=== PATIENT | female | born 1995 | race Caucasian/White ===

== ENCOUNTER 2017-02-03 20:03 | Inpatient (IN) | payer MEDICAID ==
[~2017-02-03] VITALS: Ht 160 cm; Wt 82.6 kg
[~2017-02-03 20:03] MED LIST: AGM875T PO; AZIT-21 PO; BENZ100C18 PO; HYDR-3729 PO; IBUP-1773 PO; METH0.2T42 PO; METH4TAB PO; PREN1TAB19 PO; PRM5C60 TOP
[2017-02-03] MEDS ORDERED: LACTATED RINGERS 1,000 ML IV SCH (20:39)
[2017-02-03] MEDS ORDERED: MINERAL OIL CONCENTRATE 99.9% 15 ML UDC TOP PRN (20:45)
[2017-02-03] MEDS ORDERED: PREN-53 PO (20:56)
[2017-02-03 21:00] VITALS: BP 105/60
[2017-02-03 21:02] LABS: BASOPHILS % (AUTO) 0 % (0-10); EOSINOPHILS % (AUTO) 0 % (0-10); LYMPHOCYTES % (AUTO) 26 % (12-44); MEAN CORPUSCULAR HEMOGLOBIN 25 PG (25-34); MEAN CORPUSCULAR HGB CONC 32 G/DL (32-36); MEAN CORPUSCULAR VOLUME 79 FL (80-99); MEAN PLATELET VOLUME 12.1 FL (7.4-10.4); MONOCYTES # (AUTO) 0.7 X 10^3 (0.0-1.0); MONOCYTES % (AUTO) 10 % (0-12); NEUTROPHILS # (AUTO) 4.7 X 10^3 (1.8-7.8); NEUTROPHILS % (AUTO) 64 % (42-75); PLATELET COUNT 152 10^3/uL (130-400); RED BLOOD COUNT 3.45 10^6/uL (4.35-5.85); RED CELL DISTRIBUTION WIDTH 14.6 % (10.0-14.5); WHITE BLOOD COUNT 7.5 10^3/uL (4.3-11.0)
[2017-02-03] MEDS ORDERED: MISOPROSTOL 100 MCG (CYTOTEC) TAB ONE (21:25)
[2017-02-03] MEDS: MISOPROSTOL 100 MCG (CYTOTEC) TAB PV SCH (21:30)
[2017-02-03] MEDS ORDERED: CATHETER FLUSH 10 ML SYR IV SCH (22:00)
[2017-02-03 23:00] VITALS: BP 91/53
[2017-02-04] VITALS (39 sets, daily range): BP systolic 83–121; BP diastolic 49–67
[2017-02-04] MEDS ORDERED: MISOPROSTOL 100 MCG (CYTOTEC) TAB ONE (00:30)
[2017-02-04] MEDS: MISOPROSTOL 100 MCG (CYTOTEC) TAB PV SCH (01:43)
[2017-02-04] MEDS ORDERED: D5 LR IV SOLUTION 1,000 ML IV ONE (03:49)
[2017-02-04] MEDS: D5 LR IV SOLUTION 1,000 ML IV SCH ×3 (03:54→11:15)
[2017-02-04] MEDS ORDERED: fentaNYL INJECTION 100 MCG/2 ML AMP IVP PRN (05:30)
[2017-02-04] MEDS ORDERED: OXYTOCIN/NORMAL SALINE 500 ML IV SCH ×2 (07:48→13:37)
[2017-02-04] MEDS ORDERED: BUPIVACAINE 0.25% 30 ML (SENSORCAINE) VIAL ONE (08:09)
[2017-02-04] MEDS ORDERED: SUFENTA 0.6MCG/ML BUPIVA 0.125 100 ML ONE (08:11)
[2017-02-04] MEDS ORDERED: LACTATED RINGERS 1,000 ML IV ONE (08:24)
[2017-02-04] MEDS ORDERED: BUPIVACAINE 0.25% 30 ML (SENSORCAINE) VIAL INJ ONE (08:30)
[2017-02-04] MEDS ORDERED: ONDANSETRON 4 MG/2 ML (SDV) Z0FRAN IV PRN (08:30)
[2017-02-04] MEDS ORDERED: EPIDURAL (SUFENTA 0.6MCG/ML BUPIVA 0.125%) 100 ML BAG EPI SCH (08:30)
[2017-02-04] MEDS ORDERED: NALOXONE 0.4 MG/ML 1 ML (NARCAN) VIAL IV PRN (08:30)
--- NOTE | 2017-02-04 11:51 | History & Physical-OB ---
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), anemia on iron, h/o 10 wk SAB with negative APS testing History of Labs A+ Antibody neg RI Hep B neg Hep C neg HIV neg RPR NR GC/CT neg/neg GBS Neg Fragile X pos on carrier screening panel; referred to [facility] with neg amnio (XY fetus) Allergies and Home Medications Allergies Coded Allergies: No Known Drug Allergies (Unverified , 07/24/09) Home Medications [id number]/Iron Fumarate/FA/Dss 1 Each Tablet, 1 EACH PO DAILY, (Reported) OB - History Hx of Present Care: Yes Ultrasounds: Normal mid trimester US Obstetrical Complications: Other (see above) Medical Complications: Other (see above) Information Induced Hypertension: No Maternal Gestational Diabetes: No Hemorrhage: No Obstetrical History Hx : 3 Hx Para: 1 Number of Living Children: 1 Hx Termination: No Hx Total # of Abortions (Spona: 1 Hx Multiple Gestation: No Hx Stillbirth: No Hx Complication: No Hx Induced Hypertens: No Hx Maternal Gestational Diabet: No Delivery History Hx Dystocia: No Hx Large For Gestational Age I: Yes (1tx15up last , pushed x 2 hours) Hx Small for Gestational Age I: No Hx Section: No Hx Vaginal Delivery Post C-Sec: No Hx Blood Disorders: No Adverse Rxn to Tranfusion: No Patient Past Medical History see above Social History/Family History HIV/AIDS: No Recent Infectious Disease Expo: No Sexually Transmitted Disease: No Alcohol Use: Denies Use Recreational Drug Use: No Immunizations Hepatitis A: Yes Hepatitis B: Yes Tetanus Booster (TDap): Less than 5yrs Rubella: immune RPR/VDRL: Negative GBS Status: Negative HBsAG: Negative OB - Admission Exam Physical Exam Vitals: Vital Signs 02/04/17 02/04/17 02/04/17 07:45 09:55 10:25 Temp 98.4 Pulse 74 Resp 18 B/P (MAP) 102/53 Pulse Ox 100 O2 Flow Rate 15.00 HEENT: NCAT Heart: Rhythm Normal Lungs: Clear Abdomen: Gravid Extremities: Normal Reflexes: Normal Cervical Dilatation: 4cm Effacement: 75% Station: -2 Membranes: Ruptured Amniotic Fluid: Clear Heart Rate: 140's Accelerations: Accelerations Present Decelerations: No Decelerations Short Term Variability: Present Sound Technician Supervisor Variability: Average (6-25) Contractions on Admission: < 5 Minutes Apart Oro Scoring Tool (Modified) Dilation (cm): 3-4cm (2) Effacement (%): 51-79% (2) Descent/Station: -2 (1) Cervix Consistency: Medium(1) Cervix Position: Middle/Mid-Position (1) Add 1 point for: Each previous vaginal delivery (1) Oro Score: 8 Labs Laboratory Tests Test 02/03/17 20:54 Range/Units White Blood Count 7.5 4.3-11.0 10^3/uL Red Blood Count 3.45 L 4.35-5.85 10^6/uL Hemoglobin 8.7 L 11.5-16.0 G/DL Hematocrit 27 L 35-52 % Mean Corpuscular Volume 79 L 80-99 FL Mean Corpuscular Hemoglobin 25 25-34 PG Mean Corpuscular Hemoglobin Concent 32 32-36 G/DL Red Cell Distribution Width 14.6 H 10.0-14.5 % Platelet Count 152 130-400 10^3/uL Mean Platelet Volume 12.1 H 7.4-10.4 FL Neutrophils (%) (Auto) 64 42-75 % Lymphocytes (%) (Auto) 26 12-44 % Monocytes (%) (Auto) 10 0-12 % Eosinophils (%) (Auto) 0 0-10 % Basophils (%) (Auto) 0 0-10 % Neutrophils # (Auto) 4.7 1.8-7.8 X 10^3 Lymphocytes # (Auto) 2.0 1.0-4.0 X 10^3 Monocytes # (Auto) 0.7 0.0-1.0 X 10^3 Eosinophils # (Auto) 0.0 0.0-0.3 10^3/uL Basophils # (Auto) 0.0 0.0-0.1 10^3/uL OB - Assessment/Plan/Diagnosis Assessment Assessment: induction of labor Plan Other Plan 21 y/o @ 39w2d here for elective IOL, GBS neg Fragile X carrier, baby neg for fragile X per amnio with MFM Rh+ RI S/p cytotec x 2 doses AROM/pit for IOL [place] MD February 04, 2017 11:51
[2017-02-04] MEDS ORDERED: HYDROcodone/APAP 5 MG/325 MG (LORTAB) TAB PO PRN (13:45)
[2017-02-04] MEDS ORDERED: MEASLES,MUMPS,RUBELLA 1 EA INJ SQ ONE (13:45)
[2017-02-04] MEDS ORDERED: TETANUS,DIPTH,PERTUSS P/F (BOOSTRIX) 0.5 ML VIAL IM ONE (13:45)
[2017-02-04] MEDS ORDERED: WITCH HAZEL(TUCKS) 40 EA JAR TOP PRN (13:45)
[2017-02-04] MEDS ORDERED: BENZOCAINE/MENTHOL (DERMOPLAST) 56 ML CAN TP PRN (13:45)
[2017-02-04] MEDS ORDERED: CATHETER FLUSH 10 ML SYR IV SCH (14:00)
[2017-02-04] MEDS: IBUPROFEN 600 MG (MOTRIN) TAB PO SCH ×2 (14:52→21:26)
--- NOTE | 2017-02-04 15:09 | OB Labor & Delivery Record ---
Vag Delivery Note Vag Delivery Note Date of Delivery: 02/04/17 Preoperative Diagnosis: Nica Goodman is a 21 y/o @ 39w2d with elective IOL, GBS neg, fragile X carrier (fetus negative for fragile X on amnio) Postoperative Diagnosis: Same Surgeon: Malachi Juárez MD Anesthesia: Epidural Delivery Type: Spontaneous vaginal delivery Findings: Viable male , apgars 9/9, weight 9lb2oz Lacerations: none Intact placenta with 3 vessel cord. No nuchal cord, body cord or shoulder dystocia Estimated Blood Loss: 300 ml Complications: None Condition: Stable Description of Procedure: The patient is a 21 y/o who presented @ 39w2d for elective IOL. She was admitted and informed consent was obtained. Her labor course was remarkable for cytotec (2 doses vaginally), AROM with clear fluid, pitocin for induction, and epidural for analgesia. FSE was placed by RN for accurate FHT monitoring. She progressed to complete dilatation and began to push. She was then set up for delivery. The 's head was delivered atraumatically in the occiput anterior position. The shoulders and remainder of the 's body were then delivered without difficulty. Upon delivery, the head was held below the level of the perineum and the mouth and nares were bulb suctioned. The cord was doubly clamped and cut and the infant was handed off to the pediatric staff. An intact placenta with 3-vessel cord delivered via Francesca and there was found to be minimal bleeding. Vigorous fundal massage was performed and the fundus was found to be firm. IV oxytocin was given. Examination of the vagina and perineum revealed a no lacerations. Sponge and instrument counts were correct. Mom and baby were both in stable condition in the labor suite. Vitals - Labs Vital Signs - I&O Vital Signs Date Time Temp Pulse Resp B/P (MAP) Pulse Ox O2 Delivery O2 Flow Rate FiO2 02/04/17 10:25 74 18 102/53 15.00 02/04/17 10:10 83 18 109/54 15.00 02/04/17 10:07 15.00 02/04/17 09:55 99 18 110/55 100 02/04/17 09:40 93 18 93/51 100 02/04/17 09:25 90 18 99/53 100 02/04/17 09:24 86 18 104/58 100 02/04/17 09:21 93 18 83/49 100 02/04/17 09:10 80 18 87/53 100 02/04/17 08:55 82 18 94/51 100 02/04/17 08:40 110 18 105/60 100 02/04/17 08:35 91 18 107/58 100 02/04/17 08:30 103 18 97/54 100 02/04/17 08:25 98 18 110/56 100 02/04/17 08:20 108 18 115/67 100 02/04/17 08:15 88 18 107/65 96 02/04/17 08:10 85 18 94/50 02/04/17 07:45 98.4 02/04/17 07:10 96 18 90/51 02/04/17 07:00 85 18 98/55 02/04/17 06:00 99.0 93 18 105/56 02/04/17 05:00 81 18 104/63 02/04/17 04:00 86 18 97/55 02/04/17 03:00 76 18 89/53 02/04/17 01:00 97 18 110/59 02/04/17 00:00 98 18 92/53 02/03/17 23:00 92 18 91/53 02/03/17 21:00 98.6 121 18 105/60 Labs Laboratory Tests 02/03/17 20:54: White Blood Count 7.5, Red Blood Count 3.45L, Hemoglobin 8.7L, Hematocrit 27L, Mean Corpuscular Volume 79L, Mean Corpuscular Hemoglobin 25, Mean Corpuscular Hemoglobin Concent 32, Red Cell Distribution Width 14.6H, Platelet Count 152, Mean Platelet Volume 12.1H, Neutrophils (%) (Auto) 64, Lymphocytes (%) (Auto) 26 , Monocytes (%) (Auto) 10, Eosinophils (%) (Auto) 0, Basophils (%) (Auto) 0, Neutrophils # (Auto) 4.7, Lymphocytes # (Auto) 2.0, Monocytes # (Auto) 0.7, Eosinophils # (Auto) 0.0, Basophils # (Auto) 0.0 02/04/17 00:00: MALACHI JUÁREZ MD February 04, 2017 15:09
[2017-02-04] MEDS ORDERED: DOCU100C37 PO (16:34)
[2017-02-04] MEDS ORDERED: HYDR-3812 PO (16:34)
[2017-02-04] MEDS ORDERED: IBUP-1773 PO (16:34)
[2017-02-04] MEDS ORDERED: FERR-74 PO (16:34)
--- NOTE | 2017-02-04 17:38 | Discharge Inst-Women's Service ---
Discharge Inst-Women's Serv Depart Medication/Instructions New, Converted or Re-Newed RX: RX on Chart (and transmitted to pharmacy) Final Diagnosis TIUP, elective IOL, Consults/Follow Up Additional Follow Up: Yes Orders/Referrals [address] Juárez Activity Activity: Activity as Tolerated Driving Instructions: You May Drive (unless taking narcotic pain medications) NO SMOKING: NO SMOKING Nothing Inside Vagina: No Douching, No [place], No Tampons Diet Discharge Diet: No Restrictions Symptoms to Report to : Bleeding Excessive, Pain Increased, Fever Over 101 Degrees F, Pain/Pressure in Chest, Vaginal Bleeding Increase, Dizziness/Fainting , Nausea/Vomiting, Shortness of Breath For Any Problems or Questions: Contact Your Physician, Go to Emergency Room MALACHI JUÁREZ MD February 04, 2017 17:38
[2017-02-04] MEDS: DOCUSATE SODIUM 100 MG (COLACE) CAP PO SCH (21:26)
[2017-02-05 00:50] VITALS: BP 98/60
[2017-02-05 03:40] VITALS: BP 102/67
[2017-02-05] MEDS: IBUPROFEN 600 MG (MOTRIN) TAB PO SCH ×5 (03:40→16:58)
[2017-02-05 05:41] LABS: BASOPHILS % (AUTO) 0 % (0-10); EOSINOPHILS # (AUTO) 0.1 10^3/uL (0.0-0.3); EOSINOPHILS % (AUTO) 1 % (0-10); LYMPHOCYTES # (AUTO) 2.3 X 10^3 (1.0-4.0); LYMPHOCYTES % (AUTO) 27 % (12-44); MEAN CORPUSCULAR HEMOGLOBIN 25 PG (25-34); MEAN CORPUSCULAR HGB CONC 31 G/DL (32-36); MEAN CORPUSCULAR VOLUME 80 FL (80-99); MEAN PLATELET VOLUME 12.3 FL (7.4-10.4); MONOCYTES # (AUTO) 0.6 X 10^3 (0.0-1.0); MONOCYTES % (AUTO) 7 % (0-12); NEUTROPHILS # (AUTO) 5.6 X 10^3 (1.8-7.8); NEUTROPHILS % (AUTO) 65 % (42-75); PLATELET COUNT 139 10^3/uL (130-400); RED BLOOD COUNT 3.59 10^6/uL (4.35-5.85); RED CELL DISTRIBUTION WIDTH 14.8 % (10.0-14.5); WHITE BLOOD COUNT 8.7 10^3/uL (4.3-11.0)
[2017-02-05] MEDS ORDERED: PRENATAL VITAMIN 1 EA TAB PO SCH (07:00)
[2017-02-05] MEDS ORDERED: FERROUS SULF 325 MG (IRON) TAB PO SCH (08:00)
[2017-02-05] MEDS: DOCUSATE SODIUM 100 MG (COLACE) CAP PO SCH (08:37)
--- NOTE | 2017-02-05 08:37 | Postpartum Progress Note ---
Note Note Day # 1 s/p Subjective: Patient is without complaints. Ambulating, voiding. Tolerating a regular diet without nausea or vomiting. Normal lochia. Pain is well controlled with oral pain medications. [] feeding. [] Objective: Laboratory Tests Test 02/05/17 05:25 Range/Units White Blood Count 8.7 4.3-11.0 10^3/uL Red Blood Count 3.59 L 4.35-5.85 10^6/uL Hemoglobin 8.8 L 11.5-16.0 G/DL Hematocrit 29 L 35-52 % Mean Corpuscular Volume 80 80-99 FL Mean Corpuscular Hemoglobin 25 25-34 PG Mean Corpuscular Hemoglobin Concent 31 L 32-36 G/DL Red Cell Distribution Width 14.8 H 10.0-14.5 % Platelet Count 139 130-400 10^3/uL Mean Platelet Volume 12.3 H 7.4-10.4 FL Neutrophils (%) (Auto) 65 42-75 % Lymphocytes (%) (Auto) 27 12-44 % Monocytes (%) (Auto) 7 0-12 % Eosinophils (%) (Auto) 1 0-10 % Basophils (%) (Auto) 0 0-10 % Neutrophils # (Auto) 5.6 1.8-7.8 X 10^3 Lymphocytes # (Auto) 2.3 1.0-4.0 X 10^3 Monocytes # (Auto) 0.6 0.0-1.0 X 10^3 Eosinophils # (Auto) 0.1 0.0-0.3 10^3/uL Basophils # (Auto) 0.0 0.0-0.1 10^3/uL Vital Sign - Last 24 Hours 02/04/17 02/04/17 02/04/17 02/04/17 08:40 08:55 09:10 09:21 Pulse 110 82 80 93 Resp 18 B/P (MAP) 105/60 94/51 87/53 83/49 Pulse Ox 100 100 100 100 02/04/17 02/04/17 02/04/17 02/04/17 09:24 09:25 09:40 09:55 Pulse 86 90 93 99 Resp 18 18 B/P (MAP) 104/58 99/53 93/51 110/55 Pulse Ox 100 100 100 100 5/17/17 5/17/17 5/17/17 5//17 10:07 10:10 10:25 10:40 Pulse 83 74 129 Resp 18 18 18 B/P (MAP) 109/54 102/53 91/57 O2 Flow Rate 15.00 15.00 15.00 15.00 17/17 5//17 5/17/17 5//17 10:55 11:10 11:25 11:39 Temp 99.0 Pulse 94 93 107 Resp 18 18 18 B/P (MAP) 107/55 101/56 100/57 O2 Flow Rate 15.00 15.00 17/17 5/17 5/17 5 12:15 12:25 12:40 13:35 Temp 98.2 Pulse 108 101 87 89 Resp 18 18 18 18 B/P (MAP) 97/53 101/65 97/60 118/62 02/04/17 02/04/17 02/04/17 02/04/17 13:55 14:05 14:20 14:35 Temp 98.8 Pulse 96 91 96 96 Resp 18 18 18 18 B/P (MAP) 106/62 121/55 98/64 97/67 17/17 02/04/17 //17 5//17 14:45 15:00 16:30 21:26 Temp 97.9 98.6 98.2 Pulse 101 83 87 Resp 18 18 18 B/P (MAP) 87/64 109/62 94/58 Pulse Ox 98 98 02/05/17 5/17 00:50 03:40 Temp 98.0 98.0 Pulse 80 81 Resp 18 18 B/P (MAP) 98/60 102/67 Pulse Ox 98 98 Intake and Output 02/04/17 5//17 5//17 15:00 23:00 07:00 Intake Total 2125 ml Balance 2125 ml Physical Exam: General - Alert and oriented, no apparent distress Abdomen - Soft, appropriately tender to palpation, non-distended, fundus firm at umbilicus Extremities - no edema, negative Adam's bilaterally [] Assessment: 1. post- day # 1, status post spontaneous vaginal delivery. Recovering well, hemodynamically stable 2. Acute blood loss anemia - hgb 8.8, iron replaced Plan: Routine care. Encourage breast feeding. Encourage ambulation. Ferrous sulfate supplementation. Plan for discharge today if baby ready to go. Vitals - Labs Vital Signs - I&O Vital Signs Date Time Temp Pulse Resp B/P (MAP) Pulse Ox O2 Delivery O2 Flow Rate FiO2 02/05/17 03:40 98.0 81 18 102/67 98 02/05/17 00:50 98.0 80 18 98/60 98 02/04/17 21:26 98.2 87 18 94/58 98 02/04/17 16:30 98.6 83 18 109/62 98 02/04/17 15:00 97.9 02/04/17 14:45 101 18 87/64 02/04/17 14:35 96 18 97/67 02/04/17 14:20 96 18 98/64 02/04/17 14:05 91 18 121/55 02/04/17 13:55 98.8 96 18 106/62 02/04/17 13:35 89 18 118/62 02/04/17 12:40 87 18 97/60 02/04/17 12:25 101 18 101/65 02/04/17 12:15 98.2 108 18 97/53 02/04/17 11:39 99.0 02/04/17 11:25 107 18 100/57 02/04/17 11:10 93 18 101/56 15.00 02/04/17 10:55 94 18 107/55 15.00 02/04/17 10:40 129 18 91/57 15.00 02/04/17 10:25 74 18 102/53 15.00 02/04/17 10:10 83 18 109/54 15.00 02/04/17 10:07 15.00 02/04/17 09:55 99 18 110/55 100 02/04/17 09:40 93 18 93/51 100 02/04/17 09:25 90 18 99/53 100 02/04/17 09:24 86 18 104/58 100 02/04/17 09:21 93 18 83/49 100 02/04/17 09:10 80 18 87/53 100 02/04/17 08:55 82 18 94/51 100 02/04/17 08:40 110 18 105/60 100 I & O 02/05/17 07:00 Intake Total 2125 ml Balance 2125 ml Labs Laboratory Tests 02/05/17 05:25: White Blood Count 8.7, Red Blood Count 3.59L, Hemoglobin 8.8L, Hematocrit 29L, Mean Corpuscular Volume 80, Mean Corpuscular Hemoglobin 25, Mean Corpuscular Hemoglobin Concent 31L, Red Cell Distribution Width 14.8H, Platelet Count 139, Mean Platelet Volume 12.3H, Neutrophils (%) (Auto) 65, Lymphocytes (%) (Auto) 27 , Monocytes (%) (Auto) 7, Eosinophils (%) (Auto) 1, Basophils (%) (Auto) 0, Neutrophils # (Auto) 5.6, Lymphocytes # (Auto) 2.3, Monocytes # (Auto) 0.6, Eosinophils # (Auto) 0.1, Basophils # (Auto) 0.0 MINE SHEN DO February 05, 2017 08:37
[2017-02-05 08:38] VITALS: BP 101/66
--- NOTE | 2017-02-05 10:37 | Anesthesia-Regional Post-Op ---
Regional Patient Condition Mental Status: Alert, Oriented x3 Circulation: Same as Pre-Op Headache: Absent Sensation: Full Recovery Motor Block: Absent Post Op Complications Complications None Follow Up Care/Instructions Patient Instructions None needed. Anesthesia/Patient Condition Patient is doing well, no complaints, stable vital signs, no apparent adverse anesthesia problems. No complications reported per nursing. [place] [facility] [place] JESSIE RANKIN CRNA February 05, 2017 10:37
[2017-02-05 14:30] VITALS: BP 99/62
== END 2017-02-05 17:35 | disposition home or self-care (01) | DRG 775 ==
LOC: LDRP 20:03
PROVIDERS: ADMIT Obstetrics & Gynecology; ATTEND Obstetrics & Gynecology
PROC: 10E0XZZ Delivery of Products of Conception, External Approach (ICD-10-PCS; principal; 2017-02-04)
PROC: 3E0P7GC Introduction of Other Therapeutic Substance into Female Reproductive, Via Natural or Artificial Opening (ICD-10-PCS; 2017-02-04)
PROC: 3E033VJ Introduction of Other Hormone into Peripheral Vein, Percutaneous Approach (ICD-10-PCS; 2017-02-04)
DX: O35.1XX0 Maternal care for (suspected) chromosomal abnormality in fetus, not applicable or unspecified (principal); Q99.2 Fragile X chromosome; Z3A.39 39 weeks gestation of pregnancy; Z37.0 Single live birth; D62 Acute posthemorrhagic anemia; O99.02 Anemia complicating childbirth
CPT/HCPCS: 36415; 85025; 86850; 86900; 86901

== ENCOUNTER 2017-09-03 18:19 | Emergency (ER) | payer MEDICAID ==
[~2017-09-03] VITALS: Ht 165.1 cm; Wt 61.2 kg
[~2017-09-03 18:19] MED LIST changes: +DOCU100C37 PO; +FERR-74 PO; +HYDR-3812 PO; +PREN-53 PO
--- OUTSIDE RECORDS SUMMARY | 2017-09-03 18:27 | XMS REPORT | Continuity of Care Document ---
Author Author [facility] Address Unknown Phone Unavailable Allergies Active Description Code Type Severity Reaction Onset Reported/Identified Relationship to Patient Clinical Status Yes No Known Drug Allergies [id number] Drug Allergy Mild N/A 07/24/2009 Medications There is no data. Problems Date Dx Coded Attending Type Code Diagnosis Diagnosed By 12/19/2010 Ot 133.0 12/19/2010 Ot 782.1 10/19/2012 Ot 461.9 ACUTE SINUSITIS NOS 10/19/2012 Ot 478.19 OTHER DISEASE OF NASAL CAVITY AND SINUSE 02/22/2013 JESUS COX DO Ot 462 ACUTE PHARYNGITIS 04/20/2013 JOSE GUADALUPE KITCHEN DO K 034.0 STREP THROAT 04/20/2013 ALESSANDRA KITCHEN DOA K 784.1 THROAT PAIN 04/20/2013 NOEMI JUNIOR, ERROL T 034.0 STREP THROAT 04/20/2013 NOEMI JUNIOR ERROL T 784.1 THROAT PAIN 04/20/2013 FANNY BUILDING AND CONSTRUCTION MANAGER, MAL A 034.0 STREP THROAT 04/20/2013 FANNY BUILDING AND CONSTRUCTION MANAGER, MAL A 784.1 THROAT PAIN 04/20/2013 KITCHEN ALESSANDRA ATKINSA K 034.0 STREP THROAT 04/20/2013 KITCHEN ALESSANDRA ATKINSA K 784.1 THROAT PAIN 04/20/2013 FANNY BUILDING AND CONSTRUCTION MANAGER, MAL A 034.0 STREP THROAT 04/20/2013 FANNY BUILDING AND CONSTRUCTION MANAGER, MAL A 784.1 THROAT PAIN 04/20/2013 FANNY BUILDING AND CONSTRUCTION MANAGER, MAL A 034.0 STREP THROAT 04/20/2013 FANNY BUILDING AND CONSTRUCTION MANAGER, MAL A 784.1 THROAT PAIN 04/20/2013 VALENTINA REYNOSO MD 034.0 STREP THROAT 04/20/2013 VALENTINA REYNOOS MD 784.1 THROAT PAIN 04/20/2013 VALENTINA REYNOSO MD 034.0 STREP THROAT 04/20/2013 EDGARDO MD, VALENTINA N 784.1 THROAT PAIN 04/20/2013 FANNY BUILDING AND CONSTRUCTION MANAGER, MAL A 034.0 STREP THROAT 04/20/2013 FANNY BUILDING AND CONSTRUCTION MANAGER, MAL A 784.1 THROAT PAIN 04/20/2013 FANNY BUILDING AND CONSTRUCTION MANAGER, MAL A 034.0 STREP THROAT 04/20/2013 FANNY BUILDING AND CONSTRUCTION MANAGER, MAL A 784.1 THROAT PAIN 04/20/2013 VALENTINA REYNOSO MD N 034.0 STREP THROAT 04/20/2013 VALENTINA REYNOSO MD N 784.1 THROAT PAIN 04/20/2013 VALENTINA REYNOSO MD N 034.0 STREP THROAT 04/20/2013 VALENTINA REYNOSO MD N 784.1 THROAT PAIN 04/20/2013 VALENTINA REYNOSO MD N 034.0 STREP THROAT 04/20/2013 VALENTINA REYNOSO MD N 784.1 THROAT PAIN 04/20/2013 VALENTINA REYNOSO MD N 034.0 STREP THROAT 04/20/2013 VALENTINA REYNOSO MD N 784.1 THROAT PAIN 04/20/2013 VALENTINA REYNOSO MD N 034.0 STREP THROAT 04/20/2013 VALENTINA REYNOSO MD N 784.1 THROAT PAIN 04/20/2013 VALENTINA REYNOSO MD N 034.0 STREP THROAT 04/20/2013 VALENTINA REYNOSO MD N 784.1 THROAT PAIN 04/20/2013 VALENTINA REYNOSO MD N 034.0 STREP THROAT 04/20/2013 VALENTINA REYNOSO MD N 784.1 THROAT PAIN 04/20/2013 VALENTINA REYNOSO MD N 034.0 STREP THROAT 04/20/2013 VALENTINA REYNOSO MD N 784.1 THROAT PAIN 04/20/2013 VALENTINA REYNOSO MD N 034.0 STREP THROAT 04/20/2013 VALENTINA REYNOSO MD N 784.1 THROAT PAIN 04/20/2013 VALENTINA REYNOSO MD N 034.0 STREP THROAT 04/20/2013 VALENTINA REYNOSO MD N 784.1 THROAT PAIN 04/20/2013 FANNY BUILDING AND CONSTRUCTION MANAGER, MAL A 034.0 STREP THROAT 04/20/2013 FANNY BUILDING AND CONSTRUCTION MANAGER, MAL A 784.1 THROAT PAIN 04/20/2013 KITCHEN DO, JOSE GUADALUPE K 034.0 STREP THROAT 04/20/2013 ALESSANDRA KITCHEN DOA K 784.1 THROAT PAIN 06/29/2013 ALESSANDRA KITCHEN DOA K 461.9 SINUSITIS ACUTE 06/29/2013 FIDELINA ATKINS, JOSE GUADALUPE K 462 PHARYNGITIS ACUTE 06/29/2013 ALESSANDRA KITCHEN DOA K 626.0 ABSENCE OF MENSTRUATION 06/29/2013 NOEMI BUILDING AND CONSTRUCTION MANAGERERROL Ochoa T 461.9 SINUSITIS ACUTE 06/29/2013 NOEMI BUILDING AND CONSTRUCTION MANAGER, ERROL T 462 PHARYNGITIS ACUTE 06/29/2013 NOEMI BUILDING AND CONSTRUCTION MANAGER, ERROL T 626.0 ABSENCE OF MENSTRUATION 06/29/2013 FANNY BUILDING AND CONSTRUCTION MANAGER, MAL A 461.9 SINUSITIS ACUTE 06/29/2013 FANNY BUILDING AND CONSTRUCTION MANAGER, MAL A 462 PHARYNGITIS ACUTE 06/29/2013 FANNY BUILDING AND CONSTRUCTION MANAGER, MAL A 626.0 ABSENCE OF MENSTRUATION 06/29/2013 ALESSANDRA KITCHEN DOA K 461.9 SINUSITIS ACUTE 06/29/2013 ALESSANDRA KITCHEN DOA K 462 PHARYNGITIS ACUTE 06/29/2013 ALESSANDRA KITCHEN DOA K 626.0 ABSENCE OF MENSTRUATION 06/29/2013 FANNY BUILDING AND CONSTRUCTION MANAGER, MAL A 461.9 SINUSITIS ACUTE 06/29/2013 FANNY BUILDING AND CONSTRUCTION MANAGER, MAL A 462 PHARYNGITIS ACUTE 06/29/2013 FANNY BUILDING AND CONSTRUCTION MANAGER, MAL A 626.0 ABSENCE OF MENSTRUATION 06/29/2013 FANNY BUILDING AND CONSTRUCTION MANAGER, MAL A 461.9 SINUSITIS ACUTE 06/29/2013 FANNY BUILDING AND CONSTRUCTION MANAGER, MAL A 462 PHARYNGITIS ACUTE 06/29/2013 FANNY BUILDING AND CONSTRUCTION MANAGER, MAL A 626.0 ABSENCE OF MENSTRUATION 06/29/2013 VALENTINA REYNOSO MD N 461.9 SINUSITIS ACUTE 06/29/2013 VALENTINA REYNOSO MD 462 PHARYNGITIS ACUTE 06/29/2013 VALENTINA REYNOSO MD N 626.0 ABSENCE OF MENSTRUATION 06/29/2013 VALENTINA REYNOSO MD N 461.9 SINUSITIS ACUTE 06/29/2013 VALENTINA REYNOSO MD N 462 PHARYNGITIS ACUTE 06/29/2013 VALENTINA REYNOSO MD N 626.0 ABSENCE OF MENSTRUATION 06/29/2013 FANNY BUILDING AND CONSTRUCTION MANAGER, MAL A 461.9 SINUSITIS ACUTE 06/29/2013 FANNY BUILDING AND CONSTRUCTION MANAGER, MAL A 462 PHARYNGITIS ACUTE 06/29/2013 FANNY BUILDING AND CONSTRUCTION MANAGER, MAL A 626.0 ABSENCE OF MENSTRUATION 06/29/2013 FANNY BUILDING AND CONSTRUCTION MANAGER, MAL A 461.9 SINUSITIS ACUTE 06/29/2013 FANNY BUILDING AND CONSTRUCTION MANAGER, MAL A 462 PHARYNGITIS ACUTE 06/29/2013 FANNY BUILDING AND CONSTRUCTION MANAGER, MAL A 626.0 ABSENCE OF MENSTRUATION 06/29/2013 VALENTINA REYNOSO MD N 461.9 SINUSITIS ACUTE 06/29/2013 VALENTINA REYNOSO MD N 462 PHARYNGITIS ACUTE 06/29/2013 VALENTINA REYNOSO MD N 626.0 ABSENCE OF MENSTRUATION 06/29/2013 VALENTINA REYNOSO MD N 461.9 SINUSITIS ACUTE 06/29/2013 VALENTINA REYNOSO MD N 462 PHARYNGITIS ACUTE 06/29/2013 VALENTINA REYNOSO MD N 626.0 ABSENCE OF MENSTRUATION 06/29/2013 VALENTINA REYNOSO MD N 461.9 SINUSITIS ACUTE 06/29/2013 VALENTINA REYNOSO MD N 462 PHARYNGITIS ACUTE 06/29/2013 VALENTINA REYNOSO MD N 626.0 ABSENCE OF MENSTRUATION 06/29/2013 VALENTINA REYNOSO MD N 461.9 SINUSITIS ACUTE 06/29/2013 VALENTINA REYNOSO MD N 462 PHARYNGITIS ACUTE 06/29/2013 VALENTINA REYNOSO MD N 626.0 ABSENCE OF MENSTRUATION 06/29/2013 VALENTINA REYNOSO MD N 461.9 SINUSITIS ACUTE 06/29/2013 VALENTINA REYNOSO MD N 46Higinio PHARYNGITIS ACUTE 06/29/2013 VALENTINA REYNOSO MD N 626.0 ABSENCE OF MENSTRUATION 06/29/2013 VALENTINA REYNOSO MD N 461.9 SINUSITIS ACUTE 06/29/2013 VALENTINA REYNOSO MD N 462 PHARYNGITIS ACUTE 06/29/2013 VALENTINA REYNOSO MD N 626.0 ABSENCE OF MENSTRUATION 06/29/2013 VALENTINA REYNOSO MD N 461.9 SINUSITIS ACUTE 06/29/2013 VALENTINA REYNOSO MD N 462 PHARYNGITIS ACUTE 06/29/2013 VALENTINA REYNOSO MD N 626.0 ABSENCE OF MENSTRUATION 06/29/2013 VALENTINA REYNOSO MD N 461.9 SINUSITIS ACUTE 06/29/2013 VALENTINA REYNOSO MD N 462 PHARYNGITIS ACUTE 06/29/2013 VALENTINA REYNOSO MD N 626.0 ABSENCE OF MENSTRUATION 06/29/2013 VALENTINA REYNOSO MD N 461.9 SINUSITIS ACUTE 06/29/2013 VALENTINA REYNOSO MD N 462 PHARYNGITIS ACUTE 06/29/2013 VALENTINA REYNOSO MD N 626.0 ABSENCE OF MENSTRUATION 06/29/2013 VALENTINA REYNOSO MD N 461.9 SINUSITIS ACUTE 06/29/2013 VALENTINA REYNOSO MD N 462 PHARYNGITIS ACUTE 06/29/2013 VALENTINA REYNOSO MD N 626.0 ABSENCE OF MENSTRUATION 06/29/2013 MAL ESCOBEDO APRN A 461.9 SINUSITIS ACUTE 06/29/2013 MAL ESCOBEDO APRN A 462 PHARYNGITIS ACUTE 06/29/2013 TREVON ESCOBEDO APRNIDI A 626.0 ABSENCE OF MENSTRUATION 06/29/2013 JOSE GUADALUPE KITCHEN DO K 461.9 SINUSITIS ACUTE 06/29/2013 JOSE GUADALUPE KITCHEN DO K 462 PHARYNGITIS ACUTE 06/29/2013 JOSE GUADALUPE KITCHEN DO K 626.0 ABSENCE OF MENSTRUATION 07/06/2013 ERROL FRANKLIN APRN 682.9 CELLULITIS AND ABSCESS OF UNSPECIFIED SITES 07/06/2013 FANNY JUNIOR, MAL A 682.9 CELLULITIS AND ABSCESS OF UNSPECIFIED SITES 07/06/2013 JOSE GUADALUPE KITCHEN DO 682.9 CELLULITIS AND ABSCESS OF UNSPECIFIED SITES 07/06/2013 FANNY JUNIOR MAL A 682.9 CELLULITIS AND ABSCESS OF UNSPECIFIED SITES 07/06/2013 TREVON ESCOBEDO APRNIDI A 682.9 CELLULITIS AND ABSCESS OF UNSPECIFIED SITES 07/06/2013 VALNETINA REYNOSO MD N 682.9 CELLULITIS AND ABSCESS OF UNSPECIFIED SITES 07/06/2013 VALENTINA REYNOSO MD N 682.9 CELLULITIS AND ABSCESS OF UNSPECIFIED SITES 07/06/2013 MAL ESCOBEDO APRN A 682.9 CELLULITIS AND ABSCESS OF UNSPECIFIED SITES 07/06/2013 MAL ESCOBEDO APRN A 682.9 CELLULITIS AND ABSCESS OF UNSPECIFIED SITES 07/06/2013 VALENTINA REYNOSO MD N 682.9 CELLULITIS AND ABSCESS OF UNSPECIFIED SITES 07/06/2013 VALENTINA REYNOSO MD N 682.9 CELLULITIS AND ABSCESS OF UNSPECIFIED SITES 07/06/2013 VALENTINA REYNOSO MD N 682.9 CELLULITIS AND ABSCESS OF UNSPECIFIED SITES 07/06/2013 VALENTINA REYNOSO MD N 682.9 CELLULITIS AND ABSCESS OF UNSPECIFIED SITES 07/06/2013 VALENTINA REYNOSO MD N 682.9 CELLULITIS AND ABSCESS OF UNSPECIFIED SITES 07/06/2013 VALENTINA REYNOSO MD N 682.9 CELLULITIS AND ABSCESS OF UNSPECIFIED SITES 07/06/2013 VALENTINA REYNOSO MD N 682.9 CELLULITIS AND ABSCESS OF UNSPECIFIED SITES 07/06/2013 VALENTINA REYNOSO MD N 682.9 CELLULITIS AND ABSCESS OF UNSPECIFIED SITES 07/06/2013 VALENTINA REYNOSO MD N 682.9 CELLULITIS AND ABSCESS OF UNSPECIFIED SITES 07/06/2013 VALENTINA REYNOSO MD N 682.9 CELLULITIS AND ABSCESS OF UNSPECIFIED SITES 07/06/2013 MAL ESCOBEDO APRN A 682.9 CELLULITIS AND ABSCESS OF UNSPECIFIED SITES 07/06/2013 JOSE GUADALUPE KITCHEN DO 682.9 CELLULITIS AND ABSCESS OF UNSPECIFIED SITES 08/17/2013 MAL ESCOBEDO APRN A V25.09 CONTRACEPTIVE COUNSELING - GENERAL 08/17/2013 MAL ESCOBEDO APRN A V74.5 STD SCREEN 08/17/2013 JOSE GUADALUPE KITCHEN DO V25.09 CONTRACEPTIVE COUNSELING - GENERAL 08/17/2013 JOSE GUADALUPE KITCHEN DO V74.5 STD SCREEN 08/17/2013 MAL ESCOBEDO APRN A V25.09 CONTRACEPTIVE COUNSELING - GENERAL 08/17/2013 FANNY BUILDING AND CONSTRUCTION MANAGER, MAL A V74.5 STD SCREEN 08/17/2013 FANNY BUILDING AND CONSTRUCTION MANAGER, MAL A V25.09 CONTRACEPTIVE COUNSELING - GENERAL 08/17/2013 FANNY BUILDING AND CONSTRUCTION MANAGER, MAL A V74.5 STD SCREEN 08/17/2013 VALENTINA REYNOSO MD N V25.09 CONTRACEPTIVE COUNSELING - GENERAL 08/17/2013 VALENTINA REYNOSO MD N V74.5 STD SCREEN 08/17/2013 VALENTINA REYNOSO MD N V25.09 CONTRACEPTIVE COUNSELING - GENERAL 08/17/2013 VALENTINA REYNOSO MD N V74.5 STD SCREEN 08/17/2013 FANNY BUILDING AND CONSTRUCTION MANAGER, MAL A V25.09 CONTRACEPTIVE COUNSELING - GENERAL 08/17/2013 FANNY BUILDING AND CONSTRUCTION MANAGER, MAL A V74.5 STD SCREEN 08/17/2013 FANNY BUILDING AND CONSTRUCTION MANAGER, MAL A V25.09 CONTRACEPTIVE COUNSELING - GENERAL 08/17/2013 FANNY DE JESUSN, MAL A V74.5 STD SCREEN 08/17/2013 VALENTINA REYNOSO MD N V25.09 CONTRACEPTIVE COUNSELING - GENERAL 08/17/2013 VALENTINA REYNOSO MD N V74.5 STD SCREEN 08/17/2013 VALENTINA REYNOSO MD N V25.09 CONTRACEPTIVE COUNSELING - GENERAL 08/17/2013 VALENTINA REYNOSO MD N V74.5 STD SCREEN 08/17/2013 VALENTINA REYNOSO MD N V25.09 CONTRACEPTIVE COUNSELING - GENERAL 08/17/2013 VALENTINA REYNOSO MD N V74.5 STD SCREEN 08/17/2013 VALENTINA REYNOSO MD V25.09 CONTRACEPTIVE COUNSELING - GENERAL 08/17/2013 VALENTINA REYNOSO MD N V74.5 STD SCREEN 08/17/2013 VALENTINA REYNOSO MD N V25.09 CONTRACEPTIVE COUNSELING - GENERAL 08/17/2013 VALENTINA REYNSOO MD N V74.5 STD SCREEN 08/17/2013 VALENTINA REYNOSO MD N V25.09 CONTRACEPTIVE COUNSELING - GENERAL 08/17/2013 VALENTINA REYNOSO MD N V74.5 STD SCREEN 08/17/2013 VALENTINA REYNOSO MD N V25.09 CONTRACEPTIVE COUNSELING - GENERAL 08/17/2013 VALENTINA REYNOSO MD N V74.5 STD SCREEN 08/17/2013 VALENTINA REYNOSO MD V25.09 CONTRACEPTIVE COUNSELING - GENERAL 08/17/2013 VALENTINA REYNOSO MD V74.5 STD SCREEN 08/17/2013 VALENTINA REYNOSO MD V25.09 CONTRACEPTIVE COUNSELING - GENERAL 08/17/2013 VALENTINA REYNOSO MD V74.5 STD SCREEN 08/17/2013 VALENTINA REYNOSO MD V25.09 CONTRACEPTIVE COUNSELING - GENERAL 08/17/2013 VALENTINA REYNOSO MD V74.5 STD SCREEN 08/17/2013 FANNYBRENDA JUNIOR, MAL A V25.09 CONTRACEPTIVE COUNSELING - GENERAL 08/17/2013 FANNYBRENDA JUNIOR, MAL A V74.5 STD SCREEN 08/17/2013 KITCHEN DO, JOSE GUADALUPE K V25.09 CONTRACEPTIVE COUNSELING - GENERAL 08/17/2013 KITCHEN DO, JOSE GUADALUPE K V74.5 STD SCREEN 10/10/2013 KITCHEN DO, JOSE GUADALUPE K V72.42 TEST POSITIVE RESULT 10/10/2013 TREVON ESCOBEDO APRNIDI A V72.42 TEST POSITIVE RESULT 10/10/2013 FANNY JUNIOR MAL A V72.42 TEST POSITIVE RESULT 10/10/2013 VALENTINA REYNOSO MD V72.42 TEST POSITIVE RESULT 10/10/2013 VALENTINA REYNOSO MD V72.42 TEST POSITIVE RESULT 10/10/2013 TREVON ESCOBEDO APRNIDI A V72.42 TEST POSITIVE RESULT 10/10/2013 MAL ESCOBEDO APRN A V72.42 TEST POSITIVE RESULT 10/10/2013 VALENTINA REYNOSO MD V72.42 TEST POSITIVE RESULT 10/10/2013 VALENTINA REYNOSO MD V72.42 TEST POSITIVE RESULT 10/10/2013 VALENTINA REYNOSO MD V72.42 TEST POSITIVE RESULT 10/10/2013 VALENTINA REYNOSO MD V72.42 TEST POSITIVE RESULT 10/10/2013 VALENTINA REYNOSO MD V72.42 TEST POSITIVE RESULT 10/10/2013 VALENTINA REYNOSO MD V72.42 TEST POSITIVE RESULT 10/10/2013 VALENTINA REYNOSO MD V72.42 TEST POSITIVE RESULT 10/10/2013 VALENTINA REYNOSO MD V72.42 TEST POSITIVE RESULT 10/10/2013 EDGARDO CHILDERS, VALENTINA Ochoa V72.42 TEST POSITIVE RESULT 10/10/2013 EDGARDO CHILDERS, VALENTINA Ochoa V72.42 TEST POSITIVE RESULT 10/10/2013 FANNY BUILDING AND CONSTRUCTION MANAGER, MAL A V72.42 TEST POSITIVE RESULT 10/10/2013 JOSE GUADALUPE KITCHEN DO V72.42 TEST POSITIVE RESULT 10/26/2013 FANNY BUILDING AND CONSTRUCTION MANAGER, MAL A V04.81 FLU SHOT 10/26/2013 FANNY BUILDING AND CONSTRUCTION MANAGER, MAL A V22.0 , NORMAL FIRST 10/26/2013 FANNY BUILDING AND CONSTRUCTION MANAGER, MAL A V04.81 FLU SHOT 10/26/2013 FANNY BUILDING AND CONSTRUCTION MANAGER, MAL A V22.0 , NORMAL FIRST 10/26/2013 VALENTINA REYNOSO MD V04.81 FLU SHOT 10/26/2013 VALENTINA REYNOSO MD V22.0 , NORMAL FIRST 10/26/2013 VALENTINA REYNOSO MD N V04.81 FLU SHOT 10/26/2013 VALENTINA REYNOSO MD V22.0 , NORMAL FIRST 10/26/2013 FANNY BUILDING AND CONSTRUCTION MANAGER, MAL A V04.81 FLU SHOT 10/26/2013 FANNY BUILDING AND CONSTRUCTION MANAGER, MAL A V22.0 , NORMAL FIRST 10/26/2013 FANNY BUILDING AND CONSTRUCTION MANAGER, MAL A V04.81 FLU SHOT 10/26/2013 FANNY BUILDING AND CONSTRUCTION MANAGER, MAL A V22.0 , NORMAL FIRST 10/26/2013 VALENTINA REYNOSO MD N V04.81 FLU SHOT 10/26/2013 VALENTINA REYNOSO MD V22.0 , NORMAL FIRST 10/26/2013 VALENTINA REYNOSO MD N V04.81 FLU SHOT 10/26/2013 VALENTINA REYNOSO MD V22.0 , NORMAL FIRST 10/26/2013 VALENTINA REYNOSO MD V04.81 FLU SHOT 10/26/2013 VALENTINA REYNOSO MD V22.0 , NORMAL FIRST 10/26/2013 VALENTINA REYNOSO MD N V04.81 FLU SHOT 10/26/2013 VALENTINA REYNOSO MD V22.0 , NORMAL FIRST 10/26/2013 VALENTINA REYNOSO MD N V04.81 FLU SHOT 10/26/2013 VALENTINA REYNOSO MD N V22.0 , NORMAL FIRST 10/26/2013 VALENTINA REYNOSO MD N V04.81 FLU SHOT 10/26/2013 VALENTINA REYNOSO MD N V22.0 , NORMAL FIRST 10/26/2013 VALENTINA REYNOSO MD V04.81 FLU SHOT 10/26/2013 VALENTINA REYNOSO MD N V22.0 , NORMAL FIRST 10/26/2013 VALENTINA REYNOSO MD N V04.81 FLU SHOT 10/26/2013 VALENTINA REYNOSO MD N V22.0 , NORMAL FIRST 10/26/2013 VALENTINA REYNOSO MD V04.81 FLU SHOT 10/26/2013 VALENTINA REYNOSO MD N V22.0 , NORMAL FIRST 10/26/2013 VALENTINA REYNOSO MD V04.81 FLU SHOT 10/26/2013 VALENTINA REYNOSO MD N V22.0 , NORMAL FIRST 10/26/2013 FANNY APRN, MAL A V04.81 FLU SHOT 10/26/2013 FANNY BUILDING AND CONSTRUCTION MANAGER, MAL A V22.0 , NORMAL FIRST 10/26/2013 KITCHEN DO, JOSE GUADALUPE K V04.81 FLU SHOT 10/26/2013 KITCHEN DO, JOSE GUADALUPE K V22.0 , NORMAL FIRST 01/11/2014 VALENTINA REYNOSO MD 465.9 UPPER RESPIRATORY INFECTION 01/11/2014 FANNY JUNIOR, MAL A 465.9 UPPER RESPIRATORY INFECTION 01/11/2014 FANNY JUNIOR, MAL A 465.9 UPPER RESPIRATORY INFECTION 01/11/2014 VALENTINA REYNOSO MD N 465.9 UPPER RESPIRATORY INFECTION 01/11/2014 VALENTINA REYNOSO MD 465.9 UPPER RESPIRATORY INFECTION 01/11/2014 VALENTINA REYNOSO MD 465.9 UPPER RESPIRATORY INFECTION 01/11/2014 VALENTINA REYNOSO MD N 465.9 UPPER RESPIRATORY INFECTION 01/11/2014 VALENTINA REYNOSO MD 465.9 UPPER RESPIRATORY INFECTION 01/11/2014 VALENTINA REYNOSO MD N 465.9 UPPER RESPIRATORY INFECTION 01/11/2014 EDGARDO MD, VALENTINA N 465.9 UPPER RESPIRATORY INFECTION 01/11/2014 VALENTINA REYNOSO MD N 465.9 UPPER RESPIRATORY INFECTION 01/11/2014 VALENTINA REYNOSO MD N 465.9 UPPER RESPIRATORY INFECTION 01/11/2014 VALENTINA REYNOSO MD N 465.9 UPPER RESPIRATORY INFECTION 01/11/2014 MAL ESCOBEDO APRN A 465.9 UPPER RESPIRATORY INFECTION 01/11/2014 JOSE GUADALUPE KITCHEN DO 465.9 UPPER RESPIRATORY INFECTION 03/28/2014 VALENTINA REYNOSO MD N 648.80 ABNORMAL GTT IN 03/28/2014 VALENTINA REYNOSO MD V72.40 TEST 03/28/2014 VALENTINA REYNOSO MD N 648.80 ABNORMAL GTT IN 03/28/2014 VALENTINA REYNOSO MD V72.40 TEST 03/28/2014 VALENTINA REYNOSO MD N 648.80 ABNORMAL GTT IN 03/28/2014 VALENTINA REYNOSO MD V72.40 TEST 03/28/2014 VALENTINA REYNOSO MD N 648.80 ABNORMAL GTT IN 03/28/2014 VALENTINA REYNOSO MD N V72.40 TEST 03/28/2014 VALENTINA REYNOSO MD N 648.80 ABNORMAL GTT IN 03/28/2014 VALENTINA REYNOSO MD N V72.40 TEST 03/28/2014 VALENTINA REYNOSO MD N 648.80 ABNORMAL GTT IN 03/28/2014 VALENTINA REYNOSO MD N V72.40 TEST 03/28/2014 VALENTINA REYNOSO MD N 648.80 ABNORMAL GTT IN 03/28/2014 VALENTINA REYNOSO MD N V72.40 TEST 03/28/2014 VALENTINA REYNOSO MD N 648.80 ABNORMAL GTT IN 03/28/2014 VALENTINA REYNOSO MD V72.40 TEST 03/28/2014 VALENTINA REYNOSO MD N 648.80 ABNORMAL GTT IN 03/28/2014 VALENTINA REYNOSO MD N V72.40 TEST 03/28/2014 VALENTINA REYNOSO MD N 648.80 ABNORMAL GTT IN 03/28/2014 VALENTINA REYNOSO MD V72.40 TEST 03/28/2014 FANNY DE JESUSMAL Ochoa A 648.80 ABNORMAL GTT IN 03/28/2014 FANNY DE JESUSMAL Ochoa A V72.40 TEST 03/28/2014 JOSE GUADALUPE KITCHEN DO 648.80 ABNORMAL GTT IN 03/28/2014 JOSE GUADALUPE KITCHEN DO V72.40 TEST 04/11/2014 VALENTINA REYNOSO MD V06.1 TDAP DX 04/11/2014 VALENTINA REYNOSO MD V06.1 TDAP DX 04/11/2014 VALENTINA REYNOSO MD V06.1 TDAP DX 04/11/2014 VALENTINA REYNOSO MD V06.1 TDAP DX 04/11/2014 VALENTINA REYNOSO MD V06.1 TDAP DX 04/11/2014 VALENTINA REYNOSO MD V06.1 TDAP DX 04/11/2014 VALENTINA REYNOSO MD V06.1 TDAP DX 04/11/2014 VALENTINA REYNOSO MD V06.1 TDAP DX 04/11/2014 FANNY BUILDING AND CONSTRUCTION MANAGERMAL Ochoa V06.1 TDAP DX 04/11/2014 JOSE GUADALUPE KITCHEN DO V06.1 TDAP DX 06/19/2014 VALENTINA REYNOSO MD Ot 644.03 THRT TANNER LABOR-ANTEPART 06/25/2014 VALENTINA REYNOSO MD Ot 659.71 ABN DEL FET HT RT/RHYTHM,W OR W/O MENTIO 06/25/2014 VALENTINA REYNOSO MD Ot 660.41 SHOULDER DYSTOCIA-DELIV 06/25/2014 VALENTINA REYNOSO MD Ot 664.01 DEL W 1 DEG LACERAT-DEL 06/25/2014 VALENTINA REYNOSO MD Ot V27.0 DELIVER-SINGLE LIVEBORN 08/02/2014 MAL ESCOBEDO APRN V24.2 F/U, ROUTINE 08/02/2014 MAL ESCOBEDO APRN V25.01 CONTRACEPTION - ORAL CONTRACEPTION 08/02/2014 JOSE GUADALUPE KITCHEN DO V24.2 F/U, ROUTINE 08/02/2014 JOSE GUADALUPE KITCHEN DO V25.01 CONTRACEPTION - ORAL CONTRACEPTION 11/08/2014 FIDELINA ATKINS JOSE GUADALUPE K 625.3 DYSMENORRHEA 12/25/2014 FIDELINA ATKINS JOSE GUADALUPE K V74.1 TB SCREENING 12/13/2015 MAL ESCOBEDO BUILDING AND CONSTRUCTION MANAGER Ot V22.0 12/13/2015 MAL ESCOBEDO BUILDING AND CONSTRUCTION MANAGER Ot V28.81 12/13/2015 VALENTINA REYNOSO MD Ot 648.83 12/14/2015 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Ot Z34.81 12/31/2015 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Ot Z34.81 01/24/2016 MALACHI TOM MD N Ot O02.1 MISSED 01/24/2016 MALACHI TOM MD Ot Z01.818 ENCOUNTER FOR OTHER PREPROCEDURAL EXAMIN 01/24/2016 MALACHI TOM MD N Ot Z3A.00 WEEKS OF GESTATION OF NOT SPEC 01/24/2016 VALENTINA REYNOSO MD Ot Z34.81 ENCOUNTER FOR SUPRVSN OF NORMAL PREGNANC 01/24/2016 VALENTINA REYNOSO MD Ot Z36 ENCOUNTER FOR SCREENING OF MOT 01/25/2016 MALACHI TOM MD N Ot O02.1 MISSED 01/25/2016 MALACHI TOM MD N Ot Z01.818 ENCOUNTER FOR OTHER PREPROCEDURAL EXAMIN 01/25/2016 MALACHI TOM MD N Ot Z3A.00 WEEKS OF GESTATION OF NOT SPEC 01/25/2016 MALACHI TOM MD N Ot O02.1 MISSED 01/28/2016 MALACHI TOM MD N Ot O02.1 MISSED 01/29/2016 MALACHI TOM MD N Ot O02.1 MISSED 02/05/2016 MALACHI TOM MD N Ot O02.1 MISSED 02/05/2016 VALENTINA REYNOSO MD Ot Z34.81 ENCOUNTER FOR SUPRVSN OF NORMAL PREGNANC 02/05/2016 VALENTINA REYNOSO MD Ot Z36 ENCOUNTER FOR SCREENING OF MOT 02/03/2017 MAL ESCOBEDO BUILDING AND CONSTRUCTION MANAGER Ot V22.0 SUPERVIS NORMAL 1ST PREG 02/03/2017 MAL ESCOBEDO BUILDING AND CONSTRUCTION MANAGER Ot V28.81 ENCOUNTER FOR ANATOMIC SURVEY 02/03/2017 VALENTINA REYNOSO MD Ot 648.83 ABN GLUCOSE-ANTEPARTUM 02/03/2017 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Ot Z34.81 ENCOUNTER FOR SUPRVSN OF NORMAL PREGNANC 02/03/2017 VALENTINA REYNOSO MD, Ot Z34.81 ENCOUNTER FOR SUPRVSN OF NORMAL PREGNANC 02/03/2017 VALENTINA REYNOSO MD, Ot Z36 ENCOUNTER FOR SCREENING OF MOT 02/05/2017 MALACHI TOM MD Ot D62 ACUTE POSTHEMORRHAGIC ANEMIA 02/05/2017 MALACHI TOM MD, Ot O35.1XX0 MATERNAL CARE FOR CHROMOSOMAL ABNORMALIT 02/05/2017 MALACHI TOM MD, Ot O99.02 ANEMIA COMPLICATING CHILDBIRTH 02/05/2017 MALACHI TOM MD, Ot 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 02/05/2017 MALACHI TOM MD, Ot Z37.0 SINGLE LIVE 02/05/2017 MALACHI TOM MD, Ot Z3A.39 39 WEEKS GESTATION OF Procedures Code [place] [address] URINE TEST (IN- HOUSE) 06/29/2013 78611 GC/CHLAM PROBE (STATE) 08/17/2013 68170 CULTURE UROGENITAL 08/20/2013 71299 TRICHOMONAS (IN-HOUSE) 08/22/2013 61679 URINE TEST (IN- HOUSE) 10/10/2013 75209 US OB - EARLY <14 WEEKS 10/26/2013 01735 ROUTINE VENIPUNCTURE 12/06/2013 44310 TRICHOMONAS (IN-HOUSE) 12/06/2013 04905 CBC 12/06/2013 46191 SYPHILLIS-[facility] 12/06/2013 81840 HIV ([facility]) 12/06/2013 57845 ANTIBODY SCREEN (order) 12/06/2013 39887 HEP B SURFACE ANTIGEN (STATE ) 12/06/2013 57145 GC/CHLAM PROBE (STATE) 12/06/2013 94099 TSH 12/06/2013 1644551 ANTIBODY SCREEN (RESULT ONLY) 12/07/2013 61684 RUBELLA ANTIBODY, IGG 12/07/2013 84480 BLOOD TYPE/Rh FACTOR 12/07/2013 64276 CULTURE URINE 12/07/2013 74672 CULTURE UROGENITAL 12/07/2013 85958 ROUTINE VENIPUNCTURE 01/03/2014 29540 UA OB DIP 01/03/2014 TETRA TETRA SCREEN 01/03/2014 89663 US OB - COMPLETE >14 WEEKS 01/30/2014 88886 UA OB DIP 01/30/2014 46749 UA OB DIP 02/27/2014 67431 ROUTINE VENIPUNCTURE 03/28/2014 36154 GLUCOSE JUANA 1 HOUR 03/28/2014 73323 GLUCOSE JUANA 3 HOUR 03/28/2014 59527 CBC 03/28/2014 89542 UA OB DIP 03/28/2014 86521 UA OB DIP 04/11/2014 48828 UA OB DIP 04/25/2014 32662 UA OB DIP 05/10/2014 40274 UA OB DIP 05/25/2014 75223 CULTURE GROUP B STREP VAG 05/25/2014 98611 UA OB DIP 05/30/2014 58382 UA OB DIP 06/07/2014 86169 UA OB DIP 06/15/2014 92577 CULTURE URINE 06/15/2014 63497 UA OB DIP 06/22/2014 75.69 REPAIR OB LACERATION NEC 06/23/2014 12342 TEST, URINE (IN- HOUSE) 08/02/2014 38302 TB TEST INTRADERMAL 12/25/2014 [id number] DELIVERY OF PRODUCTS OF CONCEPTION, EXTE 02/04/2017 0Y430NS INTRODUCTION OF OTH HORMONE INTO PERIPH 02/04/2017 [id number] INTRODUCE OF OTH THERAP SUBST INTO FEM R 02/04/2017 Results Test Result Range Complete blood count (CBC) with automated white blood cell (WBC) differential - 02/03/17 20:54 Blood leukocytes automated count (number/volume) 7.5 10*3/uL 4.3-11.0 Blood erythrocytes automated count (number/volume) 3.45 10*6/uL 4.35-5.85 Venous blood hemoglobin measurement (mass/volume) 8.7 g/dL 11.5-16.0 Blood hematocrit (volume fraction) 27 % 35-52 Automated erythrocyte mean corpuscular volume 79 [foz_us] 80-99 Automated erythrocyte mean corpuscular hemoglobin (mass per erythrocyte) 25 pg 25-34 Automated erythrocyte mean corpuscular hemoglobin concentration measurement ( mass/volume) 32 g/dL 32-36 Automated erythrocyte distribution width ratio 14.6 % 10.0-14.5 Automated blood platelet count (count/volume) 152 10*3/uL 130-400 Automated blood platelet mean volume measurement 12.1 [foz_us] 7.4-10.4 Automated blood neutrophils/100 leukocytes 64 % 42-75 Automated blood lymphocytes/100 leukocytes 26 % 12-44 Blood monocytes/100 leukocytes 10 % 0-12 Automated blood eosinophils/100 leukocytes 0 % 0-10 Automated blood basophils/100 leukocytes 0 % 0-10 Blood neutrophils automated count (number/volume) 4.7 10*3 1.8-7.8 Blood lymphocytes automated count (number/volume) 2.0 10*3 1.0-4.0 Blood monocytes automated count (number/volume) 0.7 10*3 0.0-1.0 Automated eosinophil count 0.0 10*3/uL 0.0-0.3 Automated blood basophil count (count/volume) 0.0 10*3/uL 0.0-0.1 Blood type T Indirect antibody screen panel - 02/03/17 20:54 ABO+Rh group AP NRG Transfusion band number [id number] NR Blood group antibody screen NEGATIVE NR Complete blood count (CBC) with automated white blood cell (WBC) differential - 02/05/17 05:25 Blood leukocytes automated count (number/volume) 8.7 10*3/uL 4.3-11.0 Blood erythrocytes automated count (number/volume) 3.59 10*6/uL 4.35-5.85 Venous blood hemoglobin measurement (mass/volume) 8.8 g/dL 11.5-16.0 Blood hematocrit (volume fraction) 29 % 35-52 Automated erythrocyte mean corpuscular volume 80 [foz_us] 80-99 Automated erythrocyte mean corpuscular hemoglobin (mass per erythrocyte) 25 pg 25-34 Automated erythrocyte mean corpuscular hemoglobin concentration measurement ( mass/volume) 31 g/dL 32-36 Automated erythrocyte distribution width ratio 14.8 % 10.0-14.5 Automated blood platelet count (count/volume) 139 10*3/uL 130-400 Automated blood platelet mean volume measurement 12.3 [foz_us] 7.4-10.4 Automated blood neutrophils/100 leukocytes 65 % 42-75 Automated blood lymphocytes/100 leukocytes 27 % 12-44 Blood monocytes/100 leukocytes 7 % 0-12 Automated blood eosinophils/100 leukocytes 1 % 0-10 Automated blood basophils/100 leukocytes 0 % 0-10 Blood neutrophils automated count (number/volume) 5.6 10*3 1.8-7.8 Blood lymphocytes automated count (number/volume) 2.3 10*3 1.0-4.0 Blood monocytes automated count (number/volume) 0.6 10*3 0.0-1.0 Automated eosinophil count 0.1 10*3/uL 0.0-0.3 Automated blood basophil count (count/volume) 0.0 10*3/uL 0.0-0.1 Encounters ACCT No. Visit Date/Time Discharge Status Pt. Type Provider Facility Loc./Unit Complaint [id number] 12/25/2014 11:01:00 12/25/2014 23:59:59 CLS Outpatient JOSE GUADALUPE KITCHEN DO [id number] 08/02/2014 13:09:00 08/02/2014 23:59:59 CLS Outpatient MAL ESCOBEDO APRN [id number] 06/22/2014 14:38:00 06/22/2014 23:59:59 CLS Outpatient VALENTINA REYNOSO MD [id number] 06/15/2014 14:16:00 06/15/2014 23:59:59 CLS Outpatient VALENTINA REYNOSO MD [id number] 06/07/2014 14:34:00 06/07/2014 23:59:59 CLS Outpatient VALENTINA REYNOSO MD [id number] 05/30/2014 14:20:00 05/30/2014 23:59:59 CLS Outpatient VALENTINA REYNOSO MD [id number] 05/25/2014 10:28:00 05/25/2014 23:59:59 CLS Outpatient VALENTINA REYNOSO MD [id number] 05/10/2014 10:41:00 05/10/2014 23:59:59 CLS Outpatient VALENTINA REYNOSO MD [id number] 04/25/2014 10:38:00 04/25/2014 23:59:59 CLS Outpatient VALENTINA REYNOSO MD [id number] 04/11/2014 10:40:00 04/11/2014 23:59:59 CLS Outpatient VALENTINA REYNOSO MD [id number] 03/28/2014 09:23:00 03/28/2014 23:59:59 CLS Outpatient VALENTINA REYNOSO MD [id number] 03/28/2014 09:23:00 03/28/2014 23:59:59 CLS Outpatient VALENTINA REYNOSO MD [id number] 02/27/2014 10:33:00 02/27/2014 23:59:59 CLS Outpatient FANNYMAL Ochoa APRN Abe [id number] 01/30/2014 10:23:00 01/30/2014 23:59:59 CLS Outpatient TREVON ESCOBEDO APRNSHAISTA Fish [id number] 01/11/2014 09:10:00 01/11/2014 23:59:59 CLS Outpatient VALENTINA REYNOSO MD [id number] 01/03/2014 10:45:00 01/03/2014 23:59:59 CLS Outpatient VALENTINA REYNOSO MD [id number] 12/06/2013 13:39:00 12/06/2013 23:59:59 CLS Outpatient FANNYMAL Ochoa APRN Abe [id number] 10/26/2013 11:07:00 10/26/2013 23:59:59 CLS Outpatient MAL ESCOBEDO APRN Abe [id number] 10/10/2013 09:07:00 10/10/2013 23:59:59 CLS Outpatient JOSE GUADALUPE KITCHEN DO [id number] 08/17/2013 09:21:00 08/17/2013 23:59:59 CLS Outpatient MAL ESCOBEDO APRN [id number] 07/06/2013 11:28:00 07/06/2013 23:59:59 CLS Outpatient ERROL FRANKLIN APRN [id number] 06/29/2013 10:45:00 06/29/2013 23:59:59 CLS Outpatient JOSE GUADALUPE KITCHEN DO [id number] 02/03/2017 20:03:00 02/05/2017 17:35:00 DIS Inpatient MALACHI TOM MD [facility] LDRP INDUCTION [id number] 01/25/2016 10:14:00 01/25/2016 14:05:00 DIS Outpatient MALACHI TOM MD [facility] SDC MISSED AB [id number] 01/24/2016 05:36:00 01/24/2016 10:06:00 DIS Outpatient MALACHI TOM MD [facility] PREOP MISSED AB [id number] 01/22/2016 14:10:00 01/22/2016 23:59:59 CLS Outpatient VALENTINA REYNOSO MD [facility] RAD VIABILITY [id number] 12/13/2015 10:28:00 12/13/2015 23:59:59 CLS Outpatient 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[facility] RAD CARE, SUBSEQUENT IN FIRST TRIMES [id number] 06/23/2014 05:57:00 06/25/2014 14:17:00 DIS Inpatient VALENTINA REYNOSO MD [facility] LDRP LABOR [id number] 06/19/2014 13:28:00 06/19/2014 13:45:00 DIS Outpatient VALENTINA REYNOSO MD [facility] WSo ABD CRAMPING [id number] 03/30/2014 13:11:00 03/30/2014 23:59:59 CLS Outpatient VALENTINA REYNOSO MD [facility] LAB ABNORMAL GTT [id number] 02/08/2014 11:33:00 02/08/2014 23:59:59 CLS Outpatient MAL ESCOBEDO APRN [facility] RAD SURVEY [id number] 11/01/2013 14:03:00 11/01/2013 23:59:59 CLS Outpatient MAL ESCOBEDO 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
--- NOTE | 2017-09-03 18:44 | ED GU-Female ---
General Chief Complaint: -Female Stated Complaint: VAG BLEEDING,ABD CRAMPING,5WKS PREG Source: patient Exam Limitations: no limitations History of Present Illness Time seen by provider: 18:42 Initial Comments To ER with reports of vaginal bleeding and abdominal cramping. She is about 5 weeks . Last menstrual period began on July 28. This morning she noticed some midline abdominal cramping. About 1 hour prior to arrival she noticed some vaginal bleeding. She is Ab1. Dr. Juárez delivered her last baby. She plans to see Dr. Reynoso for this . She has not yet had an ultrasound to confirm intrauterine . Her blood type on file here is A positive. Timing/Duration: constant Severity/Quality: moderate Location: suprapubic Radiation: none Activities at Onset: none Prior Genitourinary Problems: none Associated Symptoms: No lower back pain, No nausea/vomiting, No urinary frequency Allergies and Home Medications Allergies Coded Allergies: No Known Drug Allergies (Unverified , 07/24/09) Home Medications Docusate Sodium 100 Mg Capsule, 100 MG PO BID PRN for CONSTIPATION-1ST LINE, # 60 Ref 2 Prescribed by: MALACHI JUÁREZ on 02/04/17 1634 Ferrous Sulfate 325 Mg Tablet, 325 MG PO TIDWM, #90 Ref 3 Prescribed by: MALACHI JUÁREZ on 02/04/17 1634 Hydrocodone/Acetaminophen 1 Each Tablet, 1-2 TAB PO Q4H PRN for PAIN-MODERATE, # 15 Prescribed by: MALACHI JUÁREZ on 02/04/17 1634 Ibuprofen 600 Mg Tablet, 600 MG PO Q6H, #30 Prescribed by: MALACHI JUÁREZ on 02/04/17 1634 Dlk559/Iron Fumarate/FA/Dss 1 Each Tablet, 1 EACH PO DAILY, (Reported) Constitutional: see HPI EENTM: see HPI Respiratory: no symptoms reported Cardiovascular: no symptoms reported Genitourinary: no symptoms reported Musculoskeletal: see HPI Skin: no symptoms reported Psychiatric/Neurological: No Symptoms Reported Past Gmvsybd-Ydgawx-Rfvzqr Hx Patient Social History Recent Foreign Travel: No Contact w/Someone Who Travel: No Recent Hopitalizations: No Immunizations Up To Date Tetanus Booster (TDap): Less than 5yrs PED Vaccines UTD: Yes Seasonal Allergies Seasonal Allergies: No Surgeries History of Surgeries: No Respiratory History of Respiratory Disorde: No Cardiovascular History of Cardiac Disorders: No Neurological History of Neurological Disord: No Reproductive System Hx Reproductive Disorders: No (missed ab) Sexually Transmitted Disease: No HIV/AIDS: No Female Reproductive Disorders: Denies Genitourinary History of Genitourinary Disor: No Gastrointestinal History of Gastrointestinal Di: No Musculoskeletal History of Musculoskeletal Dis: No Endocrine History of Endocrine Disorders: No HEENT History of HEENT Disorders: No Cancer History of Cancer: No Psychosocial History of Psychiatric Problem: No Integumentary History of Skin or Integumenta: No Blood Transfusions History of Blood Disorders: No Adverse Reaction to a Blood Tr: No Family Medical History Family Medial History: Diabetes mellitus MATERNAL GRANDMOTHER FH: cancer 19 MOTHER Physical Exam Vital Signs Vital Sign - Last 12Hours 09/03/17 18:54 Temp 98.2 Pulse 87 Resp 20 B/P (MAP) 97/69 (78) Pulse Ox 100 Capillary Refill : General Appearance: WD/WN, no apparent distress HEENT: PERRL/EOMI, normal ENT inspection Neck: non-tender, full range of motion Cardiovascular: regular rate, rhythm, no murmur Respiratory: normal breath sounds, no respiratory distress, no accessory muscle use Gastrointestinal: normal bowel sounds, non tender, soft Extremities: normal range of motion, non-tender, normal inspection Neurologic/Psychiatric: alert, normal mood/affect, oriented x 3 Skin: normal color, warm/dry Progress/Results/Core Measures Suspected Sepsis SIRS Temperature: Pulse: Respiratory Rate: Laboratory Tests 09/03/17 18:48: White Blood Count 8.3 Blood Pressure / Mean: Laboratory Tests 09/03/17 18:48: Platelet Count 260 Results/Orders Lab Results Laboratory Tests Test 09/03/17 18:41 09/03/17 18:48 Range/Units Urine Color YELLOW Urine Clarity CLEAR Urine pH 6 5-9 Urine Specific [place] 1.015 L 1.016-1.022 Urine Protein 1+ H NEGATIVE Urine Glucose (UA) NEGATIVE NEGATIVE Urine Ketones NEGATIVE NEGATIVE Urine Nitrite NEGATIVE NEGATIVE Urine Bilirubin NEGATIVE NEGATIVE Urine Urobilinogen NORMAL NORMAL MG/DL Urine Leukocyte Esterase 1+ H NEGATIVE Urine RBC (Auto) 5+ H NEGATIVE Urine RBC TNTC H /HPF Urine WBC 2-5 /HPF Urine Squamous Epithelial Cells >50 H /HPF Urine Crystals NONE /LPF Urine Bacteria FEW H /HPF Urine Casts NONE /LPF Urine Mucus NEGATIVE /LPF Urine Culture Indicated NO White Blood Count 8.3 4.3-11.0 10^3/uL Red Blood Count 4.41 4.35-5.85 10^6/uL Hemoglobin 13.0 11.5-16.0 G/DL Hematocrit 38 35-52 % Mean Corpuscular Volume 86 80-99 FL Mean Corpuscular Hemoglobin 30 25-34 PG Mean Corpuscular Hemoglobin Concent 34 32-36 G/DL Red Cell Distribution Width 13.1 10.0-14.5 % Platelet Count 260 130-400 10^3/uL Mean Platelet Volume 10.9 H 7.4-10.4 FL Neutrophils (%) (Auto) 62 42-75 % Lymphocytes (%) (Auto) 31 12-44 % Monocytes (%) (Auto) 6 0-12 % Eosinophils (%) (Auto) 1 0-10 % Basophils (%) (Auto) 0 0-10 % Neutrophils # (Auto) 5.2 1.8-7.8 X 10^3 Lymphocytes # (Auto) 2.5 1.0-4.0 X 10^3 Monocytes # (Auto) 0.5 0.0-1.0 X 10^3 Eosinophils # (Auto) 0.1 0.0-0.3 10^3/uL Basophils # (Auto) 0.0 0.0-0.1 10^3/uL Human Chorionic Gonadotropin, Quant 40 H <5 MIU/ML My Orders Orders - [employer]PRESENTATIVE Cbc With Automated Diff (09/03/17 18:41) Hcg,Quantitative (09/03/17 18:41) Ua Culture If Indicated (09/03/17 18:41) Us Ob Transvaginal [id number] (09/03/17 18:41) Vital Signs/I&O Vital Sign - Last 12Hours 09/03/17 18:54 Temp 98.2 Pulse 87 Resp 20 B/P (MAP) 97/69 (78) Pulse Ox 100 Capillary Refill : Departure Impression Impression: Primary Impression: test positive Disposition: 01 HOME, SELF-CARE Condition: Stable Departure-Patient Inst. Decision time for Depature: 19:46 Referrals: VALENTINA REYNOSO MD (PCP/Family) Primary Care Physician Patient Instructions: How to Plan and Prepare for a Healthy Add. Discharge Instructions: 1. Follow-up with Dr. Reynoso next week to recheck your hCG level. All discharge instructions reviewed with patient and/or family. Voiced understanding. Copy Copies To 1: VALENTINA REYNOSO MD, PETER J APRN Sep 03, 2017 18:44
[2017-09-03 19:09] LABS: BASOPHILS % (AUTO) 0 % (0-10); EOSINOPHILS # (AUTO) 0.1 10^3/uL (0.0-0.3); EOSINOPHILS % (AUTO) 1 % (0-10); LYMPHOCYTES # (AUTO) 2.5 X 10^3 (1.0-4.0); LYMPHOCYTES % (AUTO) 31 % (12-44); MEAN CORPUSCULAR HEMOGLOBIN 30 PG (25-34); MEAN CORPUSCULAR HGB CONC 34 G/DL (32-36); MEAN CORPUSCULAR VOLUME 86 FL (80-99); MEAN PLATELET VOLUME 10.9 FL (7.4-10.4); MONOCYTES # (AUTO) 0.5 X 10^3 (0.0-1.0); MONOCYTES % (AUTO) 6 % (0-12); NEUTROPHILS # (AUTO) 5.2 X 10^3 (1.8-7.8); NEUTROPHILS % (AUTO) 62 % (42-75); PLATELET COUNT 260 10^3/uL (130-400); RED BLOOD COUNT 4.41 10^6/uL (4.35-5.85); RED CELL DISTRIBUTION WIDTH 13.1 % (10.0-14.5); WHITE BLOOD COUNT 8.3 10^3/uL (4.3-11.0)
[2017-09-03 19:28] LABS: BILIRUBIN,URINE NEGATIVE (NEGATIVE); KETONES,URINE NEGATIVE (NEGATIVE); LEUKOCYTE ESTERASE ,URINE 1+ (NEGATIVE); NITRITE,URINE NEGATIVE (NEGATIVE); PH,URINE 6 (5-9); PROTEIN,URINE 1+ (NEGATIVE); UROBILINOGEN,URINE NORMAL (NORMAL)
[2017-09-03 19:40] LABS: SQUAMOUS EPITHELIAL CELL,UR >50 /HPF
--- NOTE | 2017-09-03 19:46 | Diagnostic Imaging Report ---
INDICATION: Pain and bleeding. EXAMINATION: OB ultrasound, transvaginal. FINDINGS: The myometrium appears homogenous, no fibroid. The endometrium is 7 mm and appears homogenous. Color-flow to the adnexa confirmed, no torsion. The ovaries appear normal. No pelvic ascites. IMPRESSION: Normal pelvic ultrasound. Dictated by: Dictated on workstation # [id number]
[2017-09-03 19:53] VITALS: BP 99/72
== END 2017-09-03 19:53 | disposition home or self-care (01) ==
LOC: EDUNIT# 18:19 → ER 18:23
DX: O20.9 Hemorrhage in early pregnancy, unspecified (principal); Z3A.01 Less than 8 weeks gestation of pregnancy; Z87.59 Personal history of other complications of pregnancy, childbirth and the puerperium
CPT/HCPCS: 36415; 76817; 81000; 84702; 85025; 99283

== ENCOUNTER → 2018-06-08 | Outpatient (CLI) | payer MEDICAID ==
[~2018-06-08] MED LIST changes: +ACHD5005 PO; -FERR-74 PO; +FERR325T18 PO; -HYDR-3812 PO
--- NOTE | 2018-06-08 15:35 | Diagnostic Imaging Report ---
PROCEDURE: US PELVIC (NON OB) TECHNIQUE: Multiple real-time grayscale images were obtained over the pelvis in various projections transabdominally. INDICATION: Pelvic pain. FINDINGS: The uterus measures 7.9 x 7.0 x 4.5 cm. Endometrium is 8 mm in thickness. No uterine mass is detected. The left ovary measures 2.9 x 3.1 x 5.2 cm and contains a 2.3 x 1.8 cm cyst. Right ovary measures 2.7 x 3.8 cm. There is blood flow bilaterally. No adnexal mass or free fluid is seen. IMPRESSION: Small left ovarian cyst. The study is otherwise unremarkable. Dictated by: Dictated on workstation # [id number]
== END ==
LOC: RAD 13:37
PROVIDERS: ATTEND Family Medicine
DX: N83.202 Unspecified ovarian cyst, left side (principal)
CPT/HCPCS: 76856

== ENCOUNTER 2018-11-06 16:03 | Emergency (ER) | payer MEDICAID ==
[~2018-11-06] VITALS: Ht 157.5 cm; Wt 59.0 kg
--- OUTSIDE RECORDS SUMMARY | 2018-11-06 16:30 | XMS REPORT ---
Author Author EDGARDO VALENTINA [facility] Address [address] [place] [address] Care Team Providers Care Fitter And Turner Name Role Phone VALENTINA REYNOSO Unavailable PROBLEMS Unknown Problems ALLERGIES No Known Allergies ENCOUNTERS Encounter Location Date Diagnosis [place] [address] [address] May, Pelvic pain R10.2 [place] [address] [address] 8[address] Apr, Acute non-recurrent maxillary sinusitis J01.00 [place] [address] [address]- 89[address] Aug, Miscarriage O03.9 [place] [address] [address]- 8528 Aug, Threatened miscarriage O20.0 [place] [address] [address]- [address] Aug, Threatened miscarriage O20.0 [facility] WALK IN [facility] [address] [address] Apr, Sore throat J02.9 and Acute nasopharyngitis (common cold) J00 [place] [address] [address]- 67[address] Feb, Other seasonal allergic rhinitis J30.2 and Acute otitis externa of right ear, unspecified type H60.501 [place] [address] [address] January, Missed O02.1 and S/P D&C (status post dilation and curettage) Z98.89 [facility] [address] [id number] January, Visit for dental examination Z01.20 [place] [address] [place] [id number] [place] [address]- 7207 January, Missed O02.1 [place] [address] [place] [id number] [place] [address] 23711- 2798 January, care, subsequent in first trimester Z34.81 [place] [address] [place] [id number] [place] [address] 00953- 1519 19 Dec, 2015 care, subsequent in first trimester Z34.81 and 11 weeks gestation of Z3A.11 [place] [address] [place] [id number] [place] [address] 51164- 3778 Nov, with 7 completed weeks gestation Z3A.01 ; Encounter for immunization Z23 ; care, subsequent in first trimester Z34.81 ; Nausea and vomiting during O21.9 and Other constipation K59.09 [place] [address] [place] [id number] [place] [address] 56179- 7592 Nov, [place] [address] [place] [id number] [place] [address] 65884- 7613 29 Oct, 2015 Encounter for test, result positive Z32.01 [place] [id number] [place] [address] 24592- 4960 Aug, Sinusitis J32.9 and Abdominal pain R10.9 [place] [address] [place] [id number] [place] [address] 46269- 9825 January, Pre-employment examination V70.5 [place] [id number] [place] [address] 32876- 4501 14 Dec, 2014 [place] [address] [place] [id number] [place] [address] 32397- 2621 13 Dec, 2014 [place] [address] [place] [id number] [place] [address] 01736- 5564 Oct, [facility] [place] [facility] [address] [id number] [place] [address]- 9181 Oct, [facility] [place] [facility] [address] [id number] [place] [address]- 2884 Jul, [facility] [place] [facility] [address] [facility] [id number] [place] [address]- 7215 Jul, [facility] [place] [facility] [address] [id number] [place] [address]- 8065 Jun, [facility] [place] [facility] [address] [id number] [place] [address]- 6849 Jun, [facility] [place] [facility] [address] [id number] [place] [address]- 7410 Jun, [facility] [place] [facility] [address] [id number] [place] [address]- 8222 Jun, [facility] [place] [facility] [address] [id number] [address]- 6566 26 May, 2014 [facility] [place] [facility] [address] [id number] [place] [address]- 5051 25 May, 2014 [facility] [place] [facility] [address] [id number] [place] [address]- 1105 25 May, 2014 [facility] [place] [facility] [address] [id number] [address] 2610 18 May, 2013 [facility] [place] [facility] [address] [id number], [place] [address]- 4148 18 May, 2013 [facility] [place] [facility] [address] [id number] [place] [address]- 4292 17 May, 2014 [facility] [place] [facility] [address] [id number], [place] [address] 1884 17 May, 2013 [facility] [place] [facility] [address] [id number], [place] [address]- 6585 17 May, 2013 [facility] [place] [facility] [address] [id number] [place] [address]- 5728 17 May, 2013 [facility] [place] [facility] [address] [id number] [place] [address] 2546 09 May, 2013 [facility] [place] [facility] [address] [id number] [place] [address] 2546 09 May, 2013 [facility] [place] [facility] [address] [id number] [place] [address]- 6296 06 May, 2013 [facility] [place] [facility] [address] [id number] [place] [address] 254 May, 2013 [facility] [place] [facility] [address] [id number] [place] [address]- 2649 May, 2013 [facility] [place] [facility] [address] [id number] [place] [address]- 8243 May, 2013 [facility] [place] [facility] [address] [id number] [place] [address]- 8213 May, 2013 [facility] [place] [facility] [address] [id number] [place] [address]- 7986 Apr, [facility] [place] [facility] [address] [id number] [place] [address]- 4468 Apr, [facility] [place] [facility] [address] [id number] [place] [address]- 2936 Apr, [facility] [place] [facility] [address] [id number] [place] [address]- 2082 Apr, [facility] [place] [facility] [address] [id number] [place] [address]- 0828 Mar, [facility] [place] [facility] [address] [id number] [place] [address]- 4944 Mar, [facility] [place] [facility] [address] [id number] [place] [address]- 2716 Mar, [facility] [place] [facility] [address] [id number] [place] [address]- 4611 Mar, [facility] [place] [facility] [address] [id number] [place] [address]- 1724 Mar, [facility] [place] [facility] [address] [id number] [place] [address] Mar, [facility] [place] [facility] [address] [id number] [place] [address]- 6199 Mar, [facility] [place] [facility] [address] [id number] [place] [address]- 3975 Mar, [facility] [place] [facility] [address] [id number] [place] [address]- 1743 Mar, [facility] [place] [facility] [address] [id number] [place] [address]- 8141 Feb, [facility] [place] [facility] [address] [id number] [place] [address]- 0432 Feb, [facility] [place] [facility] [address] [id number] [place] [address]- 7070 Feb, [facility] [place] [facility] [address] [id number] [place] [address]- 5137 Feb, [facility] [place] [facility] [address] [id number] [place] [address]- 2649 January, [facility] [place] [facility] [address] [id number] [place] [address]- 7823 January, [facility] [place] [facility] [address] [id number] [place] [address]- 9882 January, [facility] [place] [facility] [address] [id number] [place] [address]- 5150 January, [facility] [place] [facility] [address] [id number] [place] [address]- 2280 Dec, [facility] [place] [facility] [address] [id number] [place] [address]- 7682 Dec, [facility] [place] [facility] [address] [id number] [place] [address]- 3579 Dec, [facility] [place] [facility] [address] [id number] [place] [address]- 4001 Dec, [facility] [place] [facility] [address] [id number] [place] [address]- 9955 Dec, [facility] [place] [facility] [address] [id number] [place] [address]- 0507 Dec, [facility] [place] [facility] [address] [id number] [place] [address]- 1753 Dec, [facility] [place] [facility] [address] [id number] [place] [address]- 0076 Nov, [facility] [place] [facility] [address] [id number] [place] [address]- 7919 Nov, [facility] [place] [facility] [address] [facility] [id number] [place] [address]- 7376 Nov, [facility] [place] [facility] [address] [id number] [place] [address]- 1227 Nov, [facility] [place] [facility] [address] [id number] [place] [address]- 3393 Nov, [facility] [place] [facility] [address] [facility] [id number] [place] [address]- 4624 Nov, [facility] [place] [facility] [address] [id number] [place] [address]- 1043 Nov, [facility] [place] [facility] [address] [id number] [place] [address]- 8016 Oct, [facility] [place] [facility] [address] [id number] [place] [address]- 3905 Oct, [facility] [place] [facility] [address] [id number] [place] [address]- 2642 Oct, [facility] [place] [facility] [address] [facility] [id number] [place] [address]- 7571 Oct, [facility] [place] [facility] [address] [facility] [id number] 4311 Sep, [facility] [address] [facility] [id number] 7758 Sep, [facility] [address] [facility] [id number] 9196 Aug, [facility] [address] [facility] [id number]- 2091 Aug, [facility] [address] [facility] [id number][place] 2687 Aug, [facility] [id number] [place] [address] 906829- 9393 Jul, [facility] [address] [id number] 3894 Jul, [facility] [address], [place] [address]- 6378 Jul, [facility] [address], [place] [address]- 1473 Jul, [facility] [address] 1696 Jun, [facility] [address] 2318 Jun, [facility] [address] 7612 Jun, [facility] [address] [place] [id number] 6765 Jun, [facility] [address] [id number]- 4813 Mar, IMMUNIZATIONS No Known Immunizations SOCIAL HISTORY Never Assessed REASON FOR VISIT rt Ovarian pain shrp pain it happend already 3 times in a month -- jonathon polk PLAN OF CARE Activity Details Follow Up prn based on US results/persistent pain Reason: VITAL SIGNS Height 63 in 2018-05-28 Weight 127.0 lbs 2018-05-28 Temperature 97.8 degrees Fahrenheit 2018-05-28 Heart Rate 70 bpm 2018-05-28 Respiratory Rate 18 2018-05-28 BMI 22.49 kg/m2 2018-05-28 Blood pressure systolic 102 mmHg 2018-05-28 Blood pressure diastolic 68 mmHg 2018-05-28 MEDICATIONS Medication Instructions Dosage Frequency Start Date End Date Duration Status Fluticasone Propionate 50 MCG/ACT Nasally Once a day 1 spray in each nostril 24h Apr, 30 day(s) Not-Taking RESULTS Name Result Date Reference Range TEST, URINE (IN HOUSE) RESULTS negative Lot # [id number] Control + Exp date 11/2019 UA W/CULTURE IF INDICATED (IN HOUSE) 2018-05-28 Lot # [id number] Exp date 12/2018 Clarity yellow Color yellow Odor no GLU neg BEBA neg KET neg SG 1.020 BLO 3+ pH 7.0 Protein neg URO 0.2 NIT neg RADHA neg Lot # Exp date Ultrasound : Pelvic, COMPLETE (REFLEX [id number]) 2018-06-08 PROCEDURES Procedure Date Ordered Result Body Site URINALYSIS, AUTO, W/O SCOPE May 28, 2018 URINE TEST May 28, 2018 INSTRUCTIONS MEDICATIONS ADMINISTERED No Known Medications MEDICAL (GENERAL) HISTORY Type Description Date Surgical History D&C Hospitalization History past child
--- OUTSIDE RECORDS SUMMARY | 2018-11-06 16:31 | XMS REPORT ---
Author Author VALENTINA REYNOSO [facility] Address [address] [place] [address] Care Team Providers Care Child Custody Evaluator Name Role Phone VALENTINA REYNOSO Unavailable PROBLEMS Unknown Problems ALLERGIES No Known Allergies ENCOUNTERS Encounter Location Date Diagnosis [facility] [address] [address] Aug, Miscarriage O03.[address] [address]- [address] Aug, Threatened miscarriage O20.0 [facility] [address] [address]- 6103 Aug, Threatened miscarriage O20.0 [facility] WALK IN [facility] [address] [address] Apr, Sore throat J02.9 and Acute nasopharyngitis (common cold) J00 [address] [address]- 9796 07 Feb, 2016 Other seasonal allergic rhinitis J30.2 and Acute otitis externa of right ear, unspecified type H60.501 [facility] [address] [address]- 3134 January, Missed O02.1 and S/P D&C (status post dilation and curettage) Z98.89 [facility] [address] [id number] January, Visit for dental examination Z01.20 [facility] [address] [address]- 2951 January, Missed O02.1 [place] [id number] [place] [address] 35331- 3202 January, care, subsequent in first trimester Z34.81 [place] [address] [place] [id number] [place] [address] 16992- 9846 19 Dec, 2015 care, subsequent in first trimester Z34.81 and 11 weeks gestation of Z3A.11 [place] [address] [place] [id number] [place] [address] 15530- 0515 Nov, with 7 completed weeks gestation Z3A.01 ; Encounter for immunization Z23 ; care, subsequent in first trimester Z34.81 ; Nausea and vomiting during O21.9 and Other constipation K59.09 [place] [address] [place] [id number] [place] [address] 39746- 0834 Nov, [place] [id number] [place] [address] 96945- 3487 29 Oct, 2015 Encounter for test, result positive Z32.01 [place] [address] [place] [id number] [place] [address] 56426- 5876 15 Aug, 2015 Sinusitis J32.9 and Abdominal pain R10.9 [place] [id number] [place] [address] 72965- 1778 January, Pre-employment examination V70.5 [place] [id number] [place] [address] 93873- 2647 14 Dec, 2014 [place] [address] [place] [id number] [place] [address] 47350- 1178 Dec, [place] [address] [place] [id number] [place] [address] 70016- 1504 Oct, [place] [address] [place] [id number] [place] [address] 91173- 2432 Oct, [place] [address] [place] [id number] [place] [address] 51432- 4741 Jul, [place] [address] [place] [address]- 0958 Jul, [facility] [place] [facility] [address] [id number] [place] [address]- 5383 Jun, [facility] [place] [facility] [address] [id number] [place] [address]- 2845 Jun, [facility] [place] [facility] [address] [id number] [place] [address]- 4616 Jun, [facility] [place] [facility] [address] [id number] [place] [address]- 2605 Jun, [facility] [place] [facility] [address] [id number] [place] [address]- 2849 26 May, 2013 [facility] [place] [facility] [address] [id number] [place] [address]- 2225 25 May, 2013 [facility] [place] [facility] [address] [id number] [place] [address]- 6252 25 May, 2013 [facility] [place] [facility] [address] [id number] [place] [address]- 5166 18 May, 2013 [facility] [place] [facility] [address] [id number] [place] [address]- 7751 18 May, 2013 [facility] [place] [facility] [address] [id number] [place] [address]- 4770 17 May, 2013 [facility] [place] [facility] [address] [id number] [place] [address]- 2545 17 May, 2013 [facility] [place] [facility] [address] [id number] [place] [address]- 2541 17 Sep, 2013 [facility] [place] [facility] [address] [id number] [place] [address]- 4623 17 May, 2013 [facility] [place] [facility] [address] [id number] [place] [address]- 6253 09 May, 2013 [facility] [place] [facility] [address] [id number] [place] [address]- 4200 May, 2013 [facility] [place] [facility] [address] [id number] [place] [address]- 1674 May, 2013 [facility] [place] [facility] [address] [id number] [place] [address]- 6997 May, [facility] [place] [facility] [address] [id number] [place] [address]- 5286 May, 2013 [facility] [place] [facility] [address] [id number] [place] [address]- 9401 May, 2013 [facility] [place] [facility] [address] [id number] [place] [address]- 9400 May, [facility] [place] [facility] [address] [id number] [place] [address]- 5733 Apr, [facility] [place] [facility] [address] [id number] [place] [address]- 6393 Apr, [facility] [place] [facility] [address] [id number] [place] [address]- 2711 Apr, [facility] [place] [facility] [address] [id number] [place] [address]- 3684 Apr, [facility] [place] [facility] [address] [id number] [place] [address]- 0830 Mar, [facility] [place] [facility] [address] [id number] [place] [address]- 4555 Mar, [facility] [place] [facility] [address] [id number] [place] [address]- 4527 Mar, [facility] [place] [facility] [address] [id number] [place] [address]- 0123 Mar, [facility] [place] [facility] [address] [id number] [place] [address]- 2783 Mar, [facility] [place] [facility] [address] [id number] [place] [address]- 5671 Mar, [facility] [place] [facility] [address] [id number] [address]- 0514 Mar, [facility] [place] [facility] [address] [id number] [place] [address]- 2672 Mar, [facility] [place] [facility] [address] [id number] [place] [address]- 7339 Mar, [facility] [place] [facility] [address] [id number] [place] [address]- 7294 Feb, [facility] [place] [facility] [address] [id number] [place] [address]- 0836 Feb, [facility] [place] [facility] [address] [id number] [place] [address]- 8756 Feb, [facility] [place] [facility] [address] [id number] [place] [address]- 9045 Feb, [facility] [place] [facility] [address] [id number] [place] [address]- 3224 January, [facility] [place] [facility] [address] [id number] [place] [address]- 4322 January, [facility] [place] [facility] [address] [id number] [place] [address]- 4227 January, [facility] [place] [facility] [address] [id number] [place] [address]- 0725 January, [facility] [place] [facility] [address] [id number] [place] [address]- 8347 Dec, [facility] [place] [facility] [address] [id number] [place] [address]- 8592 Dec, [facility] [place] [facility] [address] [id number] [place] [address]- 4651 Dec, [facility] [place] [facility] [address] [id number] [place] [address]- 9746 Dec, [facility] [place] [facility] [address] [id number] [place] [address]- 5315 Dec, [facility] [place] [facility] [address] [id number] [place] [address]- 4535 15 Dec, 2013 [facility] [place] [facility] [address] [id number] [place] [address]- 8281 15 Dec, 2013 [facility] [place] [facility] [address] [id number] [place] [address]- 3297 Nov, [facility] [place] [facility] [address] [id number] [place] [address]- 8742 Nov, [facility] [place] [facility] [address] [id number] [place] [address]- 1588 Nov, [facility] [place] [facility] [address] [id number] [place] [address]- 1228 18 Nov, 2013 [facility] [place] [facility] [address] [id number] [place] [address]- 9250 18 Nov, 2013 [facility] [place] [facility] [address] [id number] [place] [address]- 0192 Nov, [facility] [place] [facility] [address] [id number] [place] [address] Nov, [facility] [place] [facility] [address] [id number] [place] [address] Oct, [facility] [place] [facility] [address] [id number] [place] [address] Oct, [facility] [place] [facility] [address] [id number] [place] [address] Oct, [facility] [place] [facility] [address] [id number] [place] [address] Oct, [facility] [place] [facility] [address] [id number] [place] [address] Sep, [facility] [place] [facility] [address] [id number] [place] [address] Sep, [facility] [place] [facility] [address] [id number] [address] Aug, [facility] [id number] [address] Aug, [facility] [id number] [address] Aug, [facility] [id number] [address] Jul, [facility] [id number] [place] [address] Jul, [facility] [id number] [address] Jul, [facility] [id number] [place] [address] Jul, [facility] [id number] [place] [address] Jun, [facility] [id number] [address] Jun, [facility] [id number] [place] [address] Jun, [facility] [id number], [place] [address] Jun, [facility] [id number] [place] [address] Mar, IMMUNIZATIONS No Known Immunizations SOCIAL HISTORY Never Assessed REASON FOR VISIT ER F/U--tcuppettRN , Pt reports had bleeding and some cramping that continued after the ER visit. HCG level drawn yesterday results pending. PLAN OF CARE Activity Details Follow Up prn Reason: VITAL SIGNS Height 63 in 2017-09-08 Weight 138 lbs 2017-09-08 Temperature 97.6 degrees Fahrenheit 2017-09-08 Heart Rate 76 bpm 2017-09-08 Respiratory Rate 20 2017-09-08 BMI 24.44 kg/m2 2017-09-08 Blood pressure systolic 98 mmHg 2017-09-08 Blood pressure diastolic 60 mmHg 2017-09-08 MEDICATIONS Medication Instructions Dosage Frequency Start Date End Date Duration Status Cetirizine HCl 10 mg Orally Once a day 1 tablet 24h Feb, Not -Taking 28-0.8 MG Orally daily 1 24h Nov, Not-Taking RESULTS No Results PROCEDURES No Known procedures INSTRUCTIONS MEDICATIONS ADMINISTERED No Known Medications MEDICAL (GENERAL) HISTORY Type Description Date Surgical History D&C Hospitalization History past child
--- OUTSIDE RECORDS SUMMARY | 2018-11-06 16:31 | XMS REPORT ---
Author Author ESTEFANY FELDER [facility] Address [address] [place] [address] Care Team Providers Care Locomotive Engineer Name Role Phone ESTEFANY FELDER Unavailable PROBLEMS Unknown Problems ALLERGIES No Known Allergies ENCOUNTERS Encounter Location Date Diagnosis [facility] [address] [address] May, Pelvic pain R10.2 [facility] [address] [address] Apr, Acute non-recurrent maxillary sinusitis J01.00 [place] [address] [address] Aug, Miscarriage O03.9 [facility] [address] [address]- [address] Aug, Threatened miscarriage O20.0 [facility] [address] [address]- [address] Aug, Threatened miscarriage O20.0 [facility] [address] [address] Apr, Sore throat J02.9 and Acute nasopharyngitis (common cold) J00 [facility] [address] [address]- [address] 07 Feb, 2016 Other seasonal allergic rhinitis J30.2 and Acute otitis externa of right ear, unspecified type H60.501 [facility] [address] [address]- [address] January, Missed O02.1 and S/P D&C (status post dilation and curettage) Z98.89 [facility] [id number] [place] [id number] January, Visit for dental examination Z01.20 [place] [address] [place] [id number] [place] [address]- 2013 January, Missed O02.1 [place] [address] [place] [id number] [place] [address]336- 4837 January, care, subsequent in first trimester Z34.81 [place] [address] [place] [id number] [place] [address] 6[address]34- 4905 Dec, care, subsequent in first trimester Z34.81 and 11 weeks gestation of Z3A.11 [place] [address] [place] [id number] [place] [address] 82257- 5155 Nov, with 7 completed weeks gestation Z3A.01 ; Encounter for immunization Z23 ; care, subsequent in first trimester Z34.81 ; Nausea and vomiting during O21.9 and Other constipation K59.09 [place] [address] [place] [id number] [place] [address] 23665- 8924 Nov, [place] [address] [place] [id number] [place] [address] 01173- 8591 Oct, Encounter for test, result positive Z32.01 [place] [address] [place] [id number] [place] [address] 80907- 0737 15 Aug, 2015 Sinusitis J32.9 and Abdominal pain R10.9 [place] [address] [place] [id number] [place] [address] 9[address]85- 9916 January, Pre-employment examination V70.5 [place] [address] [address]- 5569 14 Dec, 2014 [place] [address] [place] [id number] [place] [address] 22963- 1294 13 Dec, 2014 [place] [address] [address]- 0812 Oct, [facility] [place] [facility] [address] [id number] [place] [address]- 2567 Oct, [facility] [place] [facility] [address] [id number] [place] [address]- 8150 Jul, [facility] [place] [facility] [address] [id number] [place] [address]- 3397 Jul, [facility] [place] [facility] [address] [id number] [place] [address]- 0099 Jun, [facility] [place] [facility] [address] [id number] [place] [address]- 0349 Jun, [facility] [place] [facility] [address] [id number] [place] [address]- 4458 Jun, [facility] [place] [facility] [address] [id number] [place] [address]- 3052 Jun, [facility] [place] [facility] [address] [id number] [place] [address]- 9023 26 May, 2014 [facility] [place] [facility] [address] [id number] [place] [address]- 0331 25 May, 2014 [facility] [place] [facility] [address] [id number] [place] [address]- 6826 25 May, 2014 [facility] [place] [facility] [address] [id number] [place] [address]- 3072 18 May, 2014 [facility] [place] [facility] [address] [id number], [place] [address]- 7420 18 May, 2013 [facility] [place] [facility] [address] [id number] [place] [address]- 8048 17 May, 2013 [facility] [place] [facility] [address] [id number] [place] [address]- 4540 17 May, 2013 [facility] [place] [facility] [address] [id number] [place] [address]- 8869 17 May, 2013 [facility] [place] [facility] [address] [id number] [place] [address]- 6501 17 May, 2013 [facility] [place] [facility] [address] [id number] [place] [address]- 8472 09 May, 2013 [facility] [place] [facility] [address] [id number] [place] [address]- 3836 09 May, 2013 [facility] [place] [facility] [address] [id number] [place] [address]- 6976 06 May, 2013 [facility] [place] [facility] [address] [id number] [place] [address]- 3696 May, 2013 [facility] [place] [facility] [address] [id number] [place] [address]- 5220 May, 2013 [facility] [place] [facility] [address] [id number] [place] [address]- 7432 May, 2013 [facility] [place] [facility] [address] [id number] [place] [address]- 9016 May, 2013 [facility] [place] [facility] [address] [id number] [place] [address]- 3533 Apr, [facility] [place] [facility] [address] [id number] [place] [address]- 5409 Apr, [facility] [place] [facility] [address] [id number] [place] [address]- 1975 Apr, [facility] [place] [facility] [address] [id number] [place] [address]- 0066 Apr, [facility] [place] [facility] [address] [id number] [place] [address]- 7784 Mar, [facility] [place] [facility] [address] [id number] [place] [address]- 9925 Mar, [facility] [place] [facility] [address] [id number] [place] [address]- 9132 Mar, [facility] [place] [facility] [address] [id number] [place] [address]- 0329 Mar, [facility] [place] [facility] [address] [id number] [place] [address]- 7839 Mar, [facility] [place] [facility] [address] [id number] [place] [address]- 2473 Mar, [facility] [place] [facility] [address] [id number] [place] [address]- 3798 Mar, [facility] [place] [facility] [address] [id number] [place] [address]- 2294 Mar, [facility] [place] [facility] [address] [id number] [place] [address]- 1422 Mar, [facility] [place] [facility] [address] [id number] [place] [address]- 3050 Feb, [facility] [place] [facility] [address] [id number] [place] [address]- 6082 Feb, [facility] [place] [facility] [address] [id number] [place] [address]- 8510 Feb, [facility] [place] [facility] [address] [id number] [place] [address]- 7441 Feb, [facility] [place] [facility] [address] [id number] [place] [address]- 1659 January, [facility] [place] [facility] [address] [id number] [place] [address]- 2756 January, [facility] [place] [facility] [address] [id number] [place] [address]- 4488 January, [facility] [place] [facility] [address] [id number] [place] [address]- 1218 January, [facility] [place] [facility] [address] [id number] [place] [address]- 9689 Dec, [facility] [place] [facility] [address] [id number] [place] [address]- 4970 Dec, [facility] [place] [facility] [address] [id number], [place] [address]- 9522 Dec, [facility] [place] [facility] [address] [id number] [place] [address]- 3049 Dec, [facility] [place] [facility] [address] [facility] [id number] [place] [address]- 5993 18 Dec, 2013 [facility] [place] [facility] [address] [facility] [id number] [place] [address]- 6763 Dec, [facility] [place] [facility] [address] [facility] [id number] [place] [address]- 3419 Dec, [facility] [place] [facility] [address] [facility] [id number] [place] [address]- 1239 Nov, [facility] [place] [facility] [address] [facility] [id number] [place] [address]- 1115 Nov, [facility] [place] [facility] [address] [facility] [id number] [place] [address]- 1003 Nov, [facility] [place] [facility] [address] [facility] [id number] [place] [address]- 8405 Nov, [facility] [place] [facility] [address] [facility] [id number] [place] [address]- 2991 Nov, [facility] [place] [facility] [address] [facility] [id number] [place] [address]- 1832 Nov, [facility] [place] [facility] [address] [facility] [id number] [place] [address]- 4053 Nov, [facility] [place] [facility] [address] [facility] [id number], [place] [address]- 5686 Oct, [facility] [place] [facility] [address] [facility] [id number] [place] [address]- 8341 Oct, [facility] [place] [facility] [address] [facility] [id number] [place] [address]- 5459 Oct, [facility] [place] [facility] [address] [facility] [id number], [place] [address]- 2910 Oct, [facility] [address] [facility] [id number], [place] [address]- [address] Sep, [facility] [address], [place] [address]- 1570 Sep, [facility] [address], [place] [address]- 8004 Aug, [facility] [address], [place] [address]- 0693 Aug, [facility] [address] [facility] [id number], [place] [address]- 2877 Aug, [facility] [address], [place] [address]- 265[address] Jul, [facility] [address], [place] [address]- 9738 Jul, [facility] [address], [place] [address]- 9968 Jul, [facility] [address] [address] Jul, [facility] [address], [place] [address]- 2540 Jun, [facility] [address], [place] [address]- 8806 Jun, [facility] [address], [place] [address]- 5796 Jun, [facility] [address] [id number], [place] [address]- 3881 Jun, [facility] [address], [place] [address]- 0231 Mar, IMMUNIZATIONS No Known Immunizations SOCIAL HISTORY Never Assessed REASON FOR VISIT Congestion, right ear pain, green nasal drainage, and nonproductive cough x 1.5 week. KBoleRN PLAN OF CARE Activity Details Follow Up if not improving or with pcp for regular fu Reason: VITAL SIGNS Height 63 in 2018-05-07 Weight 125.7 lbs 2018-05-07 Temperature 98.0 degrees Fahrenheit 2018-05-07 Heart Rate 84 bpm 2018-05-07 Respiratory Rate 18 2018-05-07 BMI 22.26 kg/m2 2018-05-07 Blood pressure systolic 96 mmHg 2018-05-07 Blood pressure diastolic 52 mmHg 2018-05-07 MEDICATIONS Medication Instructions Dosage Frequency Start Date End Date Duration Status Fluticasone Propionate 50 MCG/ACT Nasally Once a day 1 spray in each nostril 24h Apr, 30 day(s) Active Augmentin 500-125 MG Orally 2 times a day 1 tablet 12h Apr,Apr 07 days Active RESULTS No Results PROCEDURES No Known procedures INSTRUCTIONS MEDICATIONS ADMINISTERED No Known Medications MEDICAL (GENERAL) HISTORY Type Description Date Surgical History D&C Hospitalization History past child
--- OUTSIDE RECORDS SUMMARY | 2018-11-06 16:31 | XMS REPORT ---
Author Author VALENTINA REYNOSO [facility] Address [address] [place] [address] Care Team Providers Care Public Health Program Manager Name Role Phone VALENTINA REYNOSO Unavailable PROBLEMS Unknown Problems ALLERGIES No Information ENCOUNTERS Encounter Location Date Diagnosis [facility] [address] [address]- [address]85 Aug, Miscarriage O03.9 [place] [address] [address]- 0890 Aug, Threatened miscarriage O20.0 [facility] [address] [address]- [address]118 Aug, Threatened miscarriage O20.0 [facility] [address] [address] Apr, Sore throat J02.9 and Acute nasopharyngitis (common cold) J00 [address] [address]- 0770 Feb, Other seasonal allergic rhinitis J30.2 and Acute otitis externa of right ear, unspecified type H60.501 [facility] [address] [address]- 1653 January, Missed O02.1 and S/P D&C (status post dilation and curettage) Z98.89 [facility] [address] [id number] January, Visit for dental examination Z01.20 [facility] [address] [place] [id number] [place] [address] 21885- 7440 January, Missed O02.1 [place] [address] [place] [id number] [place] [address] 50876- 8950 January, care, subsequent in first trimester Z34.81 [place] [address] [place] [id number] [place] [address] 31405- 0589 19 Dec, 2015 care, subsequent in first trimester Z34.81 and 11 weeks gestation of Z3A.11 [place] [address] [place] [id number] [place] [address] 19631- 5274 Nov, with 7 completed weeks gestation Z3A.01 ; Encounter for immunization Z23 ; care, subsequent in first trimester Z34.81 ; Nausea and vomiting during O21.9 and Other constipation K59.09 [place] [id number] [place] [address] 12372- 2161 Nov, [place] [id number] [place] [address] 46631- 2571 29 Oct, 2015 Encounter for test, result positive Z32.01 [place] [id number] [place] [address] 74628- 3465 Aug, Sinusitis J32.9 and Abdominal pain R10.9 [place] [id number] [place] [address] 63004- 5551 January, Pre-employment examination V70.5 [id number] [place] [address] 94838- 0670 14 Dec, 2014 [place] [address] [place] [id number] [place] [address] 45585- 4534 Dec, [place] [address] [place] [id number] [place] [address] 03338- 8599 Oct, [place] [id number] [place] [address] 71651- 0549 Oct, [place] [id number] [place] [address] 87820- 9024 Jul, [place] [address] [place] [id number] [place] [address]- 7071 Jul, [facility] [place] [facility] [address] [id number] [place] [address]- 4313 Jun, [facility] [place] [facility] [address] [id number] [place] [address]- 1484 Jun, [facility] [place] [facility] [address] [id number] [place] [address]- 3778 Jun, [facility] [place] [facility] [address] [id number] [place] [address]- 0150 Jun, [facility] [place] [facility] [address] [id number] [place] [address]- 8391 26 May, 2014 [facility] [place] [facility] [address] [id number] [place] [address]- 2531 25 May, 2013 [facility] [place] [facility] [address] [id number] [place] [address]- 3580 25 May, 2013 [facility] [place] [facility] [address] [id number] [place] [address]- 8007 18 May, 2013 [facility] [place] [facility] [address] [id number] [place] [address]- 0915 18 May, 2013 [facility] [place] [facility] [address] [id number] [place] [address]- 9422 17 May, 2013 [facility] [place] [facility] [address] [id number] [place] [address]- 2541 17 May, 2013 [facility] [place] [facility] [address] [id number] [place] [address]- 2544 17 May, 2013 [facility] [place] [facility] [address] [id number] [place] [address]- 3100 17 May, 2013 [facility] [place] [facility] [address] [id number] [place] [address]- 2548 09 May, 2013 [facility] [place] [facility] [address] [id number] [place] [address]- 7122 May, 2013 [facility] [place] [facility] [address] [id number] [place] [address]- 7596 May, 2013 [facility] [place] [facility] [address] [id number] [place] [address]- 7806 May, [facility] [place] [facility] [address] [id number] [place] [address]- 1472 May, 2013 [facility] [place] [facility] [address] [id number] [place] [address]- 6371 May, [facility] [place] [facility] [address] [id number] [place] [address]- 8617 May, [facility] [place] [facility] [address] [id number] [place] [address]- 2693 Apr, [facility] [place] [facility] [address] [id number] [place] [address]- 3865 Apr, [facility] [place] [facility] [address] [id number] [place] [address]- 7038 Apr, [facility] [place] [facility] [address] [id number] [place] [address]- 2801 Apr, [facility] [place] [facility] [address] [id number] [place] [address]- 7141 Mar, [facility] [place] [facility] [address] [id number] [place] [address]- 8063 Mar, [facility] [place] [facility] [address] [id number] [place] [address]- 7048 Mar, [facility] [place] [facility] [address] [id number] [place] [address]- 3864 Mar, [facility] [place] [facility] [address] [id number] [place] [address]- 8349 Mar, [facility] [place] [facility] [address] [id number] [place] [address]- 2072 Mar, [facility] [place] [facility] [address] [id number] [place] [address]- 4215 Mar, [facility] [place] [facility] [address] [id number] [place] [address]- 2810 Mar, [facility] [place] [facility] [address] [id number] [place] [address]- 9231 Mar, [facility] [place] [facility] [address] [id number] [place] [address]- 4598 Feb, [facility] [place] [facility] [address] [id number] [place] [address]- 8697 Feb, [facility] [place] [facility] [address] [id number] [place] [address]- 9236 Feb, [facility] [place] [facility] [address] [id number] [place] [address]- 2877 Feb, [facility] [place] [facility] [address] [id number] [place] [address]- 4591 January, [facility] [place] [facility] [address] [id number] [place] [address]- 5990 January, [facility] [place] [facility] [address] [id number] [place] [address]- 2391 January, [facility] [place] [facility] [address] [id number] [place] [address]- 6818 January, [facility] [place] [facility] [address] [id number] [place] [address]- 9383 Dec, [facility] [place] [facility] [address] [id number] [place] [address]- 8922 Dec, [facility] [place] [facility] [address] [id number] [place] [address]- 4533 Dec, [facility] [place] [facility] [address] [id number] [place] [address]- 2036 Dec, [facility] [place] [facility] [address] [id number] [place] [address]- 4817 Dec, [facility] [place] [facility] [address] [id number] [place] [address]- 4954 15 Dec, 2013 [facility] [place] [facility] [address] [id number] [place] [address]- 7645 15 Dec, 2013 [facility] [place] [facility] [address] [id number] [place] [address]- 4016 Nov, [facility] [place] [facility] [address] [id number] [place] [address]- 2932 20 Nov, 2013 [facility] [place] [facility] [address] [id number] [place] [address]- 2903 19 Nov, 2013 [facility] [place] [facility] [address] [id number] [place] [address]- 7185 18 Nov, 2013 [facility] [place] [facility] [address] [id number] [place] [address]- 6809 18 Nov, 2013 [facility] [place] [facility] [address] [id number] [place] [address]- 6400 18 Nov, 2013 [facility] [place] [facility] [address] [id number] [place] [address]- 4614 18 Nov, 2013 [facility] [place] [facility] [address] [id number] [place] [address]- 9001 Oct, [facility] [place] [facility] [address] [id number] [place] [address]- 7183 Oct, [facility] [place] [facility] [address] [id number] [place] [address]- 8749 Oct, [facility] [place] [facility] [address] [id number] [place] [address] Oct, [facility] [place] [facility] [address] [id number] [place] [address] Sep, [facility] [place] [facility] [address] [id number] [place] [address] Sep, [facility] [place] [facility] [address] [id number], [place] [address] Aug, [facility] [address] [facility] [id number], [place] [address] Aug, [facility] [address] [facility] [id number], [place] [address] Aug, [facility] [address] [facility] [id number], [place] [address] Jul, [facility] [address] [facility] [id number], [place] [address] Jul, [facility] [address] [facility] [id number], [place] [address] Jul, [facility] [address] [facility] [id number], [place] [address] Jul, [facility] [address] [facility] [id number], [place] [address] Jun, [facility] [address] [facility] [id number], [place] [address] Jun, [facility] [address] [facility] [id number], [place] [address] Jun, [facility] [address] [facility] [id number], [place] [address] Jun, [facility] [address] [id number], [place] [address] Mar, IMMUNIZATIONS No Known Immunizations SOCIAL HISTORY Never Assessed REASON FOR VISIT Lab (walk-in)--[facility] PLAN OF CARE VITAL SIGNS MEDICATIONS No Known Medications RESULTS No Results PROCEDURES Procedure Date Ordered Result Body Site LAB NOT BILLED BY [facility] Sep 07, 2017 JONATHAN ALMANZAR* Sep 07, 2017 INSTRUCTIONS MEDICATIONS ADMINISTERED No Known Medications MEDICAL (GENERAL) HISTORY Type Description Date Surgical History D&C Hospitalization History past child
--- OUTSIDE RECORDS SUMMARY | 2018-11-06 16:31 | XMS REPORT ---
Author Author VALENTINA REYNOSO [facility] Address [address] [place] [address] Care Team Providers Care Computational Geneticist Name Role Phone VALENTINA REYNOSO Unavailable PROBLEMS Unknown Problems ALLERGIES No Information ENCOUNTERS Encounter Location Date Diagnosis [facility] [address] [address] Aug, Miscarriage O03.9 [place] [address] [address] Aug, Threatened miscarriage O20.0 [facility] [address] [address] Aug, Threatened miscarriage O20.0 [facility] IN [facility] [address] [address] Apr, Sore throat J02.9 and Acute nasopharyngitis (common cold) J00 [address] [address] Feb, Other seasonal allergic rhinitis J30.2 and Acute otitis externa of right ear, unspecified type H60.501 [facility] [address] [address] January, Missed O02.1 and S/P D&C (status post dilation and curettage) Z98.89 [facility] [address] [id number] January, Visit for dental examination Z01.20 [facility] [address] [place] [id number] [place] [address] January, Missed O02.1 [place] [address] [place] [id number] [place] [address] January, care, subsequent in first trimester Z34.81 [place] [address] [place] [id number] [place] [address] 19 Dec, 2015 care, subsequent in first trimester Z34.81 and 11 weeks gestation of Z3A.11 [place] [address] [place] [id number] [place] [address] Nov, with 7 completed weeks gestation Z3A.01 ; Encounter for immunization Z23 ; care, subsequent in first trimester Z34.81 ; Nausea and vomiting during O21.9 and Other constipation K59.09 [place] [id number] [place] [address] Nov, [place] [id number] [place] [address] 29 Oct, 2015 Encounter for test, result positive Z32.01 [place] [id number] [place] [address] Aug, Sinusitis J32.9 and Abdominal pain R10.9 [place] [id number] [place] [address]- [address] January, Pre-employment examination V70.[id number] [place] [address] 14 Dec, 2014 [place] [address] [place] [id number] [place] [address] Dec, [place] [address] [place] [id number] [place] [address] Oct, [place] [id number] [place] [address] Oct, [place] [id number] [place] [address] Jul, [place] [address] [place] [id number] [place] [address] Jul, [facility] [place] [facility] [address] [id number] [place] [address] Jun, [facility] [place] [facility] [address] [id number] [place] [address] Jun, [facility] [place] [facility] [address] [id number] [place] [address]- [address] Jun, [facility] [place] [facility] [address] [id number] [place] [address]- 48[address] Jun, [facility] [place] [facility] [address] [id number] [place] [address]- 2541 26 May, 2014 [facility] [place] [facility] [address] [id number] [place] [address]- 2646 25 May, 2013 [facility] [place] [facility] [address] [id number] [place] [address]- [address] 25 May, 2013 [facility] [place] [facility] [address] [id number] [place] [address]- 6757 18 May, 2013 [facility] [place] [facility] [address] [id number] [place] [address]- [address] 18 May, 2013 [facility] [place] [facility] [address] [id number] [place] [address]- 38[address] 17 May, 2013 [facility] [place] [facility] [address] [id number] [place] [address]- 2545 17 May, 2013 [facility] [place] [facility] [address] [id number] [place] [address]- 2548 17 May, 2013 [facility] [place] [facility] [address] [id number] [place] [address]- 7653 17 May, 2013 [facility] [place] [facility] [address] [id number] [place] [address]- 2549 09 May, 2013 [facility] [place] [facility] [address] [id number] [place] [address]- 1367 May, 2013 [facility] [place] [facility] [address] [id number] [place] [address]- 2307 May, 2013 [facility] [place] [facility] [address] [id number] [place] [address]- [address] May, [facility] [place] [facility] [address] [id number] [place] [address]- 2632 May, 2013 [facility] [place] [facility] [address] [id number] [place] [address]- 4[address] May, [facility] [place] [facility] [address] [id number] [place] [address]- 8421 May, [facility] [place] [facility] [address] [id number] [place] [address]- 8[address] Apr, [facility] [place] [facility] [address] [id number] [place] [address]- 9236 Apr, [facility] [place] [facility] [address] [id number] [place] [address]- 5728 Apr, [facility] [place] [facility] [address] [id number] [place] [address]- 1641 Apr, [facility] [place] [facility] [address] [id number] [place] [address]- 8729 Mar, [facility] [place] [facility] [address] [id number] [place] [address]- 57[address] Mar, [facility] [place] [facility] [address] [id number] [place] [address]- 3814 Mar, [facility] [place] [facility] [address] [id number] [place] [address]- 9943 Mar, [facility] [place] [facility] [address] [id number] [place] [address]- 9516 Mar, [facility] [place] [facility] [address] [id number] [place] [address]- 5610 Mar, [facility] [place] [facility] [address] [id number] [place] [address]- 6346 Mar, [facility] [place] [facility] [address] [id number] [place] [address]- 9064 Mar, [facility] [place] [facility] [address] [id number] [place] [address]- 6961 Mar, [facility] [place] [facility] [address] [id number] [place] [address]- 3450 Feb, [facility] [place] [facility] [address] [id number] [place] [address]- 9629 Feb, [facility] [place] [facility] [address] [id number] [place] [address]- 6846 Feb, [facility] [place] [facility] [address] [id number] [place] [address]- 5415 Feb, [facility] [place] [facility] [address] [id number] [place] [address]- 7983 January, [facility] [place] [facility] [address] [id number] [place] [address]- 1426 January, [facility] [place] [facility] [address] [id number] [place] [address]- 8728 January, [facility] [place] [facility] [address] [id number] [place] [address]- 9791 January, [facility] [place] [facility] [address] [id number] [place] [address]- 2467 Dec, [facility] [place] [facility] [address] [id number] [place] [address]- 8737 Dec, [facility] [place] [facility] [address] [id number] [place] [address]- 4985 Dec, [facility] [place] [facility] [address] [id number] [place] [address]- 6968 Dec, [facility] [place] [facility] [address] [id number] [place] [address]- 6579 Dec, [facility] [place] [facility] [address] [id number] [place] [address]- 63[address] 15 Dec, 2013 [facility] [place] [facility] [address] [id number] [place] [address]- 287[address] 15 Dec, 2013 [facility] [place] [facility] [address] [id number] [place] [address]- 7275 Nov, [facility] [place] [facility] [address] [id number] [place] [address]- 2540 20 Nov, 2013 [facility] [place] [facility] [address] [id number] [place] [address]- 2611 19 Nov, 2013 [facility] [place] [facility] [address] [id number] [place] [address]- 5280 18 Nov, 2013 [facility] [place] [facility] [address] [id number] [place] [address]- 4213 18 Nov, 2013 [facility] [place] [facility] [address] [id number] [place] [address]- 0150 18 Nov, 2013 [facility] [place] [facility] [address] [id number] [place] [address]- 7742 18 Nov, 2013 [facility] [place] [facility] [address] [id number] [place] [address]- 1467 Oct, [facility] [place] [facility] [address] [id number] [place] [address]- 9784 Oct, [facility] [place] [facility] [address] [id number] [place] [address]- 2820 Oct, [facility] [place] [facility] [address] [id number] [place] [address]- 6219 Oct, [facility] [place] [facility] [address] [id number] [place] [address]- 5404 Sep, [facility] [place] [facility] [address] [id number] [place] [address]- 0896 Sep, [facility] [place] [facility] [address] [id number], [place] [address]- [address] Aug, [facility] [address] [facility] [id number], [place] [address]- [address] Aug, [facility] [address] [facility] [id number], [place] [address]- [address] Aug, [facility] [address] [facility] [id number], [place] [address]- 73[address] Jul, [facility] [address] [facility] [id number], [place] [address]- 4461 Jul, [facility] [address] [facility] [id number], [place] [address]- 3312 Jul, [facility] [address] [facility] [id number], [place] [address]- 2518 Jul, [facility] [address] [place] [id number] [address]- [address] Jun, [facility] [address] [facility] [id number], [place] [address]- 3409 Jun, [facility] [address] [facility] [id number], [place] [address]- 5727 Jun, [facility] [address] [place] [id number], [place] [address]- [address] Jun, [facility] [address] [place] [id number], [place] [address]- [address] Mar, IMMUNIZATIONS No Known Immunizations SOCIAL HISTORY Never Assessed REASON FOR VISIT Lab orders PLAN OF CARE VITAL SIGNS MEDICATIONS No Known Medications RESULTS No Results PROCEDURES No Known procedures INSTRUCTIONS MEDICATIONS ADMINISTERED No Known Medications MEDICAL (GENERAL) HISTORY Type Description Date Surgical History D&C Hospitalization History past child
--- OUTSIDE RECORDS SUMMARY | 2018-11-06 16:32 | XMS REPORT | Continuity of Care Document ---
Author Author [facility] Address Unknown Phone Unavailable Allergies Active Description Code Type Severity Reaction Onset Reported/Identified Relationship to Patient Clinical Status Yes No Known Drug Allergies [id number] Drug Allergy Mild N/A 07/24/2009 Medications There [...] ERROL T 034.0 STREP THROAT 04/20/2013 NOEMI SANDI ERROL T 784.1 THROAT PAIN 04/20/2013 FANNY DEICER FINISHER, MAL A 034.0 STREP THROAT 04/20/2013 FANNY DEICER FINISHER, MAL A 784.1 THROAT PAIN 04/20/2013 KITCHEN ALESSANDRA ATKINSA K 034.0 STREP THROAT 04/20/2013 KITCHEN ALESSANDRA ATKINSA K 784.1 THROAT PAIN 04/20/2013 FANNY DEICER FINISHER, MAL A 034.0 STREP THROAT 04/20/2013 FANNY DEICER FINISHER, MAL A 784.1 THROAT PAIN 04/20/2013 FANNY DEICER FINISHER, MAL A 034.0 STREP THROAT 04/20/2013 FANNY DEICER FINISHER, MAL A 784.1 THROAT PAIN 04/20/2013 VALENTINA REYNOSO MD 034.0 STREP THROAT 04/20/2013 VALENTINA REYNOSO MD 784.1 THROAT PAIN 04/20/2013 VALENTINA REYNOSO MD 034.0 STREP THROAT 04/20/2013 EDGARDO MD, VALENTINA N 784.1 THROAT PAIN 04/20/2013 FANNY DEICER FINISHER, MAL A 034.0 STREP THROAT 04/20/2013 FANNY DEICER FINISHER, MAL A 784.1 THROAT PAIN 04/20/2013 FANNY DEICER FINISHER, MAL A 034.0 STREP THROAT 04/20/2013 FANNY DEICER FINISHER, MAL A 784.1 THROAT PAIN 04/20/2013 VALENTINA [...] MD N 784.1 THROAT PAIN 04/20/2013 FANNY DEICER FINISHER, MAL A 034.0 STREP THROAT 04/20/2013 FANNY DEICER FINISHER, MAL A 784.1 THROAT PAIN 04/20/2013 KITCHEN DO, JOSE GUADALUPE K 034.0 STREP THROAT 04/20/2013 ALESSANDRA KITCHEN DOA K 784.1 THROAT PAIN 06/29/2013 ALESSANDRA KITCHEN DOA K 461.9 SINUSITIS ACUTE 06/29/2013 FIDELINA ATKINS, JOSE GUADALUPE K 462 PHARYNGITIS ACUTE 06/29/2013 ALESSANDRA KITCHEN DOA K 626.0 ABSENCE OF MENSTRUATION 06/29/2013 NOEMI DEICER FINISHERERROL Ochoa T 461.9 SINUSITIS ACUTE 06/29/2013 NOEMI DEICER FINISHER, ERROL T 462 PHARYNGITIS ACUTE 06/29/2013 NOEMI DEICER FINISHER, ERROL T 626.0 ABSENCE OF MENSTRUATION 06/29/2013 FANNY DEICER FINISHER, MAL A 461.9 SINUSITIS ACUTE 06/29/2013 FANNY DEICER FINISHER, MAL A 462 PHARYNGITIS ACUTE 06/29/2013 FANNY DEICER FINISHER, MAL A 626.0 ABSENCE OF MENSTRUATION 06/29/2013 ALESSANDRA KITCHEN DOA K 461.9 SINUSITIS ACUTE 06/29/2013 ALESSANDRA KITCHEN DOA K 462 PHARYNGITIS ACUTE 06/29/2013 ALESSANDRA KITCHEN DOA K 626.0 ABSENCE OF MENSTRUATION 06/29/2013 FANNY DEICER FINISHER, MAL A 461.9 SINUSITIS ACUTE 06/29/2013 FANNY DEICER FINISHER, MAL A 462 PHARYNGITIS ACUTE 06/29/2013 FANNY DEICER FINISHER, MAL A 626.0 ABSENCE OF MENSTRUATION 06/29/2013 FANNY DEICER FINISHER, MAL A 461.9 SINUSITIS ACUTE 06/29/2013 FANNY DEICER FINISHER, MAL A 462 PHARYNGITIS ACUTE 06/29/2013 FANNY DEICER FINISHER, MAL A 626.0 ABSENCE OF MENSTRUATION 06/29/2013 VALENTINA REYNOSO MD N 461.9 SINUSITIS ACUTE 06/29/2013 VALENTINA REYNOSO MD 462 PHARYNGITIS ACUTE 06/29/2013 VALENTINA REYNOSO MD N 626.0 ABSENCE OF MENSTRUATION 06/29/2013 VALENTINA REYNOSO MD N 461.9 SINUSITIS ACUTE 06/29/2013 VALENTINA REYNOSO MD N 462 PHARYNGITIS ACUTE 06/29/2013 VALENTINA REYNOSO MD N 626.0 ABSENCE OF MENSTRUATION 06/29/2013 FANNY DEICER FINISHER, MAL A 461.9 SINUSITIS ACUTE 06/29/2013 FANNY DEICER FINISHER, MAL A 462 PHARYNGITIS ACUTE 06/29/2013 FANNY DEICER FINISHER, MAL A 626.0 ABSENCE OF MENSTRUATION 06/29/2013 FANNY DEICER FINISHER, MAL A 461.9 SINUSITIS ACUTE 06/29/2013 FANNY DEICER FINISHER, MAL A 462 PHARYNGITIS ACUTE 06/29/2013 FANNY DEICER FINISHER, MAL A 626.0 ABSENCE OF MENSTRUATION 06/29/2013 [...] ABSCESS OF UNSPECIFIED SITES 07/06/2013 FANNY JUNIOR AML A 682.9 CELLULITIS AND ABSCESS OF UNSPECIFIED [...] V25.09 CONTRACEPTIVE COUNSELING - GENERAL 08/17/2013 FANNY DEICER FINISHER, MAL A V74.5 STD SCREEN 08/17/2013 FANNY DEICER FINISHER, MAL A V25.09 CONTRACEPTIVE COUNSELING - GENERAL 08/17/2013 FANNY DEICER FINISHER, MAL A V74.5 STD SCREEN 08/17/2013 VALENTINA REYNOSO MD N V25.09 CONTRACEPTIVE COUNSELING - GENERAL 08/17/2013 VALENTINA REYNOSO MD N V74.5 STD SCREEN 08/17/2013 VALENTINA REYNOSO MD N V25.09 CONTRACEPTIVE COUNSELING - GENERAL 08/17/2013 VALENTINA REYNOSO MD N V74.5 STD SCREEN 08/17/2013 FANNY DEICER FINISHER, MAL A V25.09 CONTRACEPTIVE COUNSELING - GENERAL 08/17/2013 FANNY DEICER FINISHER, MAL A V74.5 STD SCREEN 08/17/2013 FANNY DEICER FINISHER, MAL A V25.09 CONTRACEPTIVE COUNSELING - GENERAL [...] Ochoa V72.42 TEST POSITIVE RESULT 10/10/2013 FANNY DEICER FINISHER, MAL A V72.42 TEST POSITIVE RESULT 10/10/2013 JOSE GUADALUPE KITCHEN DO V72.42 TEST POSITIVE RESULT 10/26/2013 FANNY DEICER FINISHER, MAL A V04.81 FLU SHOT 10/26/2013 FANNY DEICER FINISHER, MAL A V22.0 , NORMAL FIRST 10/26/2013 FANNY DEICER FINISHER, MAL A V04.81 FLU SHOT 10/26/2013 FANNY DEICER FINISHER, MAL A V22.0 , NORMAL FIRST 10/26/2013 VALENTINA REYNOSO MD V04.81 FLU SHOT 10/26/2013 VALENTINA REYNOSO MD V22.0 , NORMAL FIRST 10/26/2013 VALENTINA REYNOSO MD N V04.81 FLU SHOT 10/26/2013 VALENTINA REYNOSO MD V22.0 , NORMAL FIRST 10/26/2013 FANNY DEICER FINISHER, MAL A V04.81 FLU SHOT 10/26/2013 FANNY DEICER FINISHER, MAL A V22.0 , NORMAL FIRST 10/26/2013 FANNY DEICER FINISHER, MAL A V04.81 FLU SHOT 10/26/2013 FANNY DEICER FINISHER, MAL A V22.0 , NORMAL FIRST 10/26/2013 [...] MAL A V04.81 FLU SHOT 10/26/2013 FANNY DEICER FINISHER, MAL A V22.0 , NORMAL FIRST 10/26/2013 [...] MD N 648.80 ABNORMAL GTT IN 03/28/2014 AVLENTINA REYNOSO MD N V72.40 TEST 03/28/2014 VALENTINA [...] REYNOSO MD V06.1 TDAP DX 04/11/2014 FANNY DEICER FINISHERMAL Ochoa V06.1 TDAP DX 04/11/2014 JOSE GUADALUPE [...] K V74.1 TB SCREENING 12/13/2015 MAL ESCOBEDO DEICER FINISHER Ot V22.0 12/13/2015 MAL ESCOBEDO DEICER FINISHER Ot V28.81 12/13/2015 VALENTINA REYNOSO MD Ot 648.83 12/14/2015 TACOS KERR DEICER FINISHER Ot Z34.81 12/31/2015 TACOS KERR DEICER FINISHER Ot Z34.81 01/24/2016 MALACHI TOM MD N [...] FOR SCREENING OF MOT 02/03/2017 MAL ESCOBEDO DEICER FINISHER Ot V22.0 SUPERVIS NORMAL 1ST PREG 02/03/2017 MAL ESCOBEDO DEICER FINISHER Ot V28.81 ENCOUNTER FOR ANATOMIC SURVEY 02/03/2017 VALENTINA REYNOSO MD Ot 648.83 ABN GLUCOSE-ANTEPARTUM 02/03/2017 TACOS KERR APRN Ot Z34.81 ENCOUNTER FOR SUPRVSN OF NORMAL PREGNANC 02/03/2017 VALENTINA REYNOSO MD Ot Z34.81 ENCOUNTER FOR SUPRVSN OF NORMAL PREGNANC 02/03/2017 VALENTINA REYNOSO MD Ot Z36 ENCOUNTER FOR SCREENING OF MOT 02/05/2017 MALACHI TOM MD Ot D62 ACUTE POSTHEMORRHAGIC ANEMIA 02/05/2017 MALACHI TOM MD Ot O35.1XX0 MATERNAL CARE FOR CHROMOSOMAL ABNORMALIT 02/05/2017 MALACHI TOM MD Ot O99.02 ANEMIA COMPLICATING CHILDBIRTH 02/05/2017 MALACHI TOM MD Ot 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 02/05/2017 MALACHI TOM MD Ot Z37.0 SINGLE LIVE 02/05/2017 MALACHI TOM MD Ot Z3A.39 39 WEEKS GESTATION OF 09/03/2017 MAL ESCOBEDO DEICER FINISHER Ot V22.0 SUPERVIS NORMAL 1ST PREG 09/03/2017 MAL ESCOBEDO DEICER FINISHER Ot V28.81 ENCOUNTER FOR ANATOMIC SURVEY 09/03/2017 VALENTINA REYNOSO MD Ot 648.83 ABN GLUCOSE-ANTEPARTUM 09/03/2017 TACOS KERR APRN Ot Z34.81 ENCOUNTER FOR SUPRVSN OF NORMAL PREGNANC 09/03/2017 VALENTINA REYNOSO MD Ot Z34.81 ENCOUNTER FOR SUPRVSN OF NORMAL PREGNANC 09/03/2017 VALENTINA REYNOSO MD Ot Z36 ENCOUNTER FOR SCREENING OF MOT 09/03/2017 WOOD BOLDEN APRN Ot O20.9 HEMORRHAGE IN EARLY , UNSPECIFI 09/03/2017 WOOD BOLDEN APRN Ot Z3A.01 LESS THAN 8 WEEKS GESTATION OF 09/03/2017 WOOD BOLDEN APRN Ot Z87.59 PERSONAL HISTORY OF COMP OF PREG, CHLDBR 09/07/2017 WOOD BOLDEN APRN Ot O20.9 HEMORRHAGE IN EARLY , UNSPECIFI 09/07/2017 WOOD BOLDEN DEICER FINISHER Ot Z3A.01 LESS THAN 8 WEEKS GESTATION OF 09/07/2017 WOOD BOLDEN DEICER FINISHER Ot Z87.59 PERSONAL HISTORY OF COMP OF PREG, CHLDBR 06/07/2018 MAL ESCOBEDO Abe DEICER FINISHER Ot V22.0 SUPERVIS NORMAL 1ST PREG 06/07/2018 FANNY MAL Fish DEICER FINISHER Ot V28.81 ENCOUNTER FOR ANATOMIC SURVEY 06/07/2018 VALENTINA REYNOSO MD Ot 648.83 ABN GLUCOSE-ANTEPARTUM 06/07/2018 TACOS KERR APRN Ot Z34.81 ENCOUNTER FOR SUPRVSN OF NORMAL PREGNANC 06/07/2018 VALENTINA REYNOSO MD Ot Z34.81 ENCOUNTER FOR SUPRVSN OF NORMAL PREGNANC 06/07/2018 VALENTINA REYNOSO MD Ot Z36 ENCOUNTER FOR SCREENING OF MOT 06/09/2018 VALENTINA REYNOSO MD, Ot N83.202 UNSPECIFIED OVARIAN CYST, LEFT SIDE 06/23/2018 VALENTINA REYNOSO MD, Ot N83.202 UNSPECIFIED OVARIAN CYST, LEFT SIDE Procedures Code Description [place] [address] URINE TEST (IN- HOUSE) 06/29/2013 05150 GC/CHLAM PROBE (STATE) 08/17/2013 39872 CULTURE UROGENITAL 08/20/2013 81792 TRICHOMONAS (IN-HOUSE) 08/22/2013 31997 URINE TEST (IN- HOUSE) 10/10/2013 77868 US OB - EARLY <14 WEEKS 10/26/2013 43792 ROUTINE VENIPUNCTURE 12/06/2013 56398 TRICHOMONAS (IN-HOUSE) 12/06/2013 94944 CBC 12/06/2013 42260 SYPHILLIS-STATE LAB 12/06/2013 13782 HIV (STATE LAB) 12/06/2013 07676 ANTIBODY SCREEN (order) 12/06/2013 56740 HEP B SURFACE ANTIGEN (STATE ) 12/06/2013 48721 GC/CHLAM PROBE (STATE) 12/06/2013 86164 TSH 12/06/2013 9940399 ANTIBODY SCREEN (RESULT ONLY) 12/07/2013 38244 RUBELLA ANTIBODY, IGG 12/07/2013 85469 BLOOD TYPE/Rh FACTOR 12/07/2013 82052 CULTURE URINE 12/07/2013 25247 CULTURE UROGENITAL 12/07/2013 14261 ROUTINE VENIPUNCTURE 01/03/2014 14288 UA OB DIP 01/03/2014 TETRA TETRA SCREEN 01/03/2014 13549 US OB - COMPLETE >14 WEEKS 01/30/2014 27824 UA OB DIP 01/30/2014 55419 UA OB DIP 02/27/2014 92150 ROUTINE VENIPUNCTURE 03/28/2014 54812 GLUCOSE JUANA 1 HOUR 03/28/2014 21944 GLUCOSE JUANA 3 HOUR 03/28/2014 01060 CBC 03/28/2014 48697 UA OB DIP 03/28/2014 21088 UA OB DIP 04/11/2014 50296 UA OB DIP 04/25/2014 15205 UA OB DIP 05/10/2014 86304 UA OB DIP 05/25/2014 65307 CULTURE GROUP B STREP VAG 05/25/2014 08129 UA OB DIP 05/30/2014 50680 UA OB DIP 06/07/2014 62764 UA OB DIP 06/15/2014 58011 CULTURE URINE 06/15/2014 11010 UA OB DIP 06/22/2014 75.69 REPAIR OB LACERATION NEC 06/23/2014 67848 TEST, URINE (IN- HOUSE) 08/02/2014 10049 TB TEST INTRADERMAL 12/25/2014 [id number] DELIVERY OF PRODUCTS OF CONCEPTION, EXTE 02/04/2017 [id number] INTRODUCTION OF OTH HORMONE INTO PERIPH 02/04/2017 [id number] INTRODUCE OF OTH THERAP SUBST INTO FEM [...] ABO+Rh group AP NRG Transfusion band number [id number] [facility] Blood group antibody screen NEGATIVE [facility] Complete blood count (CBC) with automated white [...] blood basophil count (count/volume) 0.0 10*3/uL 0.0-0.1 Complete urinalysis with reflex to culture - 09/03/17 18:41 Urine color determination YELLOW NRG Urine clarity determination CLEAR NRG Urine pH measurement by test strip 6 5-9 Specific gravity of urine by test strip 1.015 1.016- 1.022 Urine protein assay by test strip, semi-quantitative 1+ NEGATIVE Urine glucose detection by automated test strip NEGATIVE NEGATIVE Erythrocytes detection in urine sediment by light microscopy 5+ NEGATIVE Urine ketones detection by automated test strip NEGATIVE NEGATIVE Urine nitrite detection by test strip NEGATIVE NEGATIVE Urine total bilirubin detection by test strip NEGATIVE NEGATIVE Urine urobilinogen measurement by automated test strip (mass/volume) NORMAL NORMAL Urine leukocyte esterase detection by dipstick 1+ NEGATIVE Automated urine sediment erythrocyte count by microscopy (number/high power field) TNTC NRG Automated urine sediment leukocyte count by microscopy (number/high power field ) [HPF] NRG Bacteria detection in urine sediment by light microscopy FEW NRG Squamous epithelial cells detection in urine sediment by light microscopy >50 NRG Crystals detection in urine sediment by light microscopy NONE NRG Casts detection in urine sediment by light microscopy NONE NRG Mucus detection in urine sediment by light microscopy NEGATIVE NRG Complete urinalysis with reflex to culture NO NRG Complete blood count (CBC) with automated white blood cell (WBC) differential - 09/03/17 18:48 Blood leukocytes automated count (number/volume) 8.3 10*3/uL 4.3-11.0 Blood erythrocytes automated count (number/volume) 4.41 10*6/uL 4.35-5.85 Venous blood hemoglobin measurement (mass/volume) 13.0 g/dL 11.5-16.0 Blood hematocrit (volume fraction) 38 % 35-52 Automated erythrocyte mean corpuscular volume 86 [foz_us] 80-99 Automated erythrocyte mean corpuscular hemoglobin (mass per erythrocyte) 30 pg 25-34 Automated erythrocyte mean corpuscular hemoglobin concentration measurement ( mass/volume) 34 g/dL 32-36 Automated erythrocyte distribution width ratio 13.1 % 10.0-14.5 Automated blood platelet count (count/volume) 260 10*3/uL 130-400 Automated blood platelet mean volume measurement 10.9 [foz_us] 7.4-10.4 Automated blood neutrophils/100 leukocytes 62 % 42-75 Automated blood lymphocytes/100 leukocytes 31 % 12-44 Blood monocytes/100 leukocytes 6 % 0-12 Automated blood eosinophils/100 leukocytes 1 % 0-10 Automated blood basophils/100 leukocytes 0 % 0-10 Blood neutrophils automated count (number/volume) 5.2 10*3 1.8-7.8 Blood lymphocytes automated count (number/volume) 2.5 10*3 1.0-4.0 Blood monocytes automated count (number/volume) 0.5 10*3 0.0-1.0 Automated eosinophil count 0.1 10*3/uL 0.0-0.3 Automated blood basophil count (count/volume) 0.0 10*3/uL 0.0-0.1 Serum or plasma choriogonadotropin measurement (units/volume) - 09/03/17 18:48 Serum or plasma choriogonadotropin measurement (units/volume) 40 m[ iU]/mL <5 HCG, QUANTITATIVE - 09/07/17 12:34 HCG, TOTAL, QN 5 mIU/mL NRG Encounters ACCT No. Visit Date/Time Discharge Status Pt. Type Provider Facility Loc./Unit Complaint [id number] 12/25/2014 11:01:00 12/25/2014 23:59:59 CLS Outpatient JOSE GUADALUPE KITCHEN DO [id number] 08/02/2014 13:09:00 08/02/2014 23:59:59 CLS Outpatient MAL ESCOBEDO APRN [id number] 06/22/2014 14:38:00 06/22/2014 23:59:59 CLS Outpatient VALENTINA REYNOSO MD [id number] 06/15/2014 14:16:00 06/15/2014 23:59:59 CLS Outpatient VALENTINA REYNOSO MD [id number] 06/07/2014 14:34:00 06/07/2014 23:59:59 CLS Outpatient VALENTINA REYNOSO MD [id number] 05/30/2014 14:20:00 05/30/2014 23:59:59 CLS Outpatient VALENTINA REYNOSO MD [id number] 05/25/2014 10:28:00 05/25/2014 23:59:59 CLS Outpatient VALENTINA REYNOSO MD [id number] 05/10/2014 10:41:00 05/10/2014 23:59:59 CLS Outpatient VALENTINA REYNOSO MD [id number] 04/25/2014 10:38:00 04/25/2014 23:59:59 CLS Outpatient VALENTINA REYNOSO MD [id number] 04/11/2014 10:40:00 04/11/2014 23:59:59 CLS Outpatient VALENTINA REYNOSO MD [id number] 03/28/2014 09:23:00 03/28/2014 23:59:59 CLS Outpatient VALENTINA REYNOSO MD N [id number] 03/28/2014 09:23:00 03/28/2014 23:59:59 CLS Outpatient VALENTINA REYNOSO MD N [id number] 02/27/2014 10:33:00 02/27/2014 23:59:59 CLS Outpatient MAL ESCOBEDO APRN [id number] 01/30/2014 10:23:00 01/30/2014 23:59:59 CLS Outpatient MAL ESCOBEDO APRN [id number] 01/11/2014 09:10:00 01/11/2014 23:59:59 CLS Outpatient VALENTINA REYNOSO MD [id number] 01/03/2014 10:45:00 01/03/2014 23:59:59 CLS Outpatient VALENTINA REYNOSO MD N [id number] 12/06/2013 13:39:00 12/06/2013 23:59:59 CLS Outpatient MAL ESCOBEDO APRN [id number] 10/26/2013 11:07:00 10/26/2013 23:59:59 CLS Outpatient MAL ESCOBEDO APRN [id number] 10/10/2013 09:07:00 10/10/2013 23:59:59 CLS Outpatient JOSE GUADALUPE KITCHEN DO [id number] 08/17/2013 09:21:00 08/17/2013 23:59:59 CLS Outpatient FANNY SANDIMAL [id number] 07/06/2013 11:28:00 07/06/2013 23:59:59 CLS Outpatient NOEMI SANDIERROL [id number] 06/29/2013 10:45:00 06/29/2013 23:59:59 [place] [id number] 05/07/2018 11:00:00 05/07/2018 23:59:59 CLS Outpatient VALENTINA REYNOSO MD [facility] [id number] 09/07/2017 12:20:00 Document Registration [id number] 06/08/2018 13:37:00 06/08/2018 23:59:59 CLS Outpatient VALENTINA REYNOSO MD [facility] RAD PELVIC PAIN [id number] 09/03/2017 18:23:00 09/03/2017 19:53:00 DIS Emergency WOOD BOLDEN APRN [facility] ER VAG BLEEDING,ABD CRAMPING, 5WKS PREG [id number] 02/03/2017 20:03:00 02/05/2017 17:35:00 DIS Inpatient MALACHI TOM MD [facility] LDRP INDUCTION [id number] 01/25/2016 10:14:00 01/25/2016 14:05:00 DIS Outpatient MALACHI TOM MD [facility] SDC MISSED AB [id number] 01/24/2016 05:36:00 01/24/2016 10:06:00 DIS Outpatient MALACHI TOM MD [facility] PREOP MISSED AB [id number] 01/22/2016 14:10:00 01/22/2016 23:59:59 CLS Outpatient VALENTINA REYNOSO MD [facility] RAD VIABILITY [id number] 12/13/2015 10:28:00 12/13/2015 23:59:59 CLS Outpatient TACOS KERR APRN [facility] RAD CARE, SUBSEQUENT IN FIRST TRIMES [id number] 06/23/2014 05:57:00 06/25/2014 14:17:00 DIS Inpatient VALENTINA REYNOSO MD [facility] LDRP LABOR [id number] 06/19/2014 13:28:00 06/19/2014 13:45:00 DIS Outpatient VALENTINA REYNOSO MD [facility] WSo ABD CRAMPING [id number] 03/30/2014 13:11:00 03/30/2014 23:59:59 CLS Outpatient VALENTINA REYNOSO MD [facility] LAB ABNORMAL GTT [id number] 02/08/2014 11:33:00 02/08/2014 23:59:59 CLS Outpatient MAL ESCOBEDO APRN [facility] RAD SURVEY [id number] 11/01/2013 14:03:00 11/01/2013 23:59:59 CLS Outpatient MAL ESCOBEDO DEICER FINISHER [facility] RAD DATING [id number] 02/22/2013 19:12:00 02/22/2013 19:47:00 DIS Emergency JESUS COX DO [facility] ER SORE THROAT,HEADACHE [id number] 10/19/2012 13:24:00 Document Registration [id number] 12/19/2010 19:14:00 Document Registration
--- NOTE | 2018-11-06 18:15 | NUR ---
PT LEFT WITH OUT BEING SEEN. DIDN'T WANT TO WAIT.
[2018-11-06 18:16] VITALS: BP 0/0
== END 2018-11-06 18:17 | disposition left against medical advice (07) ==
LOC: ER 16:03 → EDUNIT# 16:03 → ER 18:17
DX: R11.10 Vomiting, unspecified (principal); R42 Dizziness and giddiness; R51 Headache; R30.0 Dysuria; R63.0 Anorexia
CPT/HCPCS: 99281

== ENCOUNTER 2019-04-04 13:26 | Emergency (ER) | payer MEDICAID ==
[~2019-04-04] VITALS: Ht 160 cm; Wt 59.0 kg
--- OUTSIDE RECORDS SUMMARY | 2019-04-04 13:33 | XMS REPORT ---
Author Author MAL Felder Organization [facility] Address [address] [place] [address] Care Team Providers Care Territory Account Executive Name Role Phone MAL Felder Unavailable PROBLEMS Unknown Problems ALLERGIES No Information ENCOUNTERS Encounter Location Date Diagnosis [facility] WALK IN [facility] [address] [address] January, Viral URI J06.9 [facility] [place] [address] [address] Oct, Acute gastroenteritis K52.9 [facility] [address] [place] [address] May, Pelvic pain R10.[address] [address] Apr, Acute non-recurrent maxillary sinusitis J01.[address] [address] Aug, Miscarriage O03.[address] [address] Aug, Threatened miscarriage O20.[address] [address] Aug, Threatened miscarriage O20.0 [facility] WALK IN [facility] [address] [address] Apr, Sore throat J02.9 and Acute nasopharyngitis (common cold) J00 [address] [address] 07 Feb, 2016 Other seasonal allergic rhinitis J30.2 and Acute otitis externa of right ear, unspecified type H60.501 [place] [id number] [place] [address] January, Missed O02.1 and S/P D&C (status post dilation and curettage) Z98.89 [facility] [id number] [place] [id number] January, Visit for dental examination Z01.20 [place] [id number] [place] [address] January, Missed O02.[address] [address] January, care, subsequent in first trimester Z34.81 [place] [address] [address] Dec, care, subsequent in first trimester Z34.81 and 11 weeks gestation of Z3A.11 [place] [id number] [place] [address] Nov, with 7 completed weeks gestation Z3A.01 ; Encounter for immunization Z23 ; care, subsequent in first trimester Z34.81 ; Nausea and vomiting during O21.9 and Other constipation K59.09 [place] [id number] [place] [address] Nov, [place] [address] [address] Oct, Encounter for test, result positive Z32.01 [place] [address] [address] 15 Aug, 2015 Sinusitis J32.9 and Abdominal pain R10.9 [place] [id number] [place] [address] January, Pre-employment examination V70.5 [place] [id number] [place] [address] 14 Dec, 2014 [facility] [place] [facility] [address] [id number] [place] [address] 13 Dec, 2014 [facility] [place] [facility] [address] [id number] [place] [address] 18 Oct, 2014 [facility] [place] [facility] [address] [id number] [place] [address] Oct, [facility] [place] [facility] [address] [id number] [place] [address] Jul, [facility] [place] [facility] [address] [id number] [place] [address] Jul, [facility] [place] [facility] [address] [id number] [place] [address] Jun, [facility] [place] [facility] [address] [id number] [place] [address] Jun, [facility] [place] [facility] [address] [id number] [place] [address] Jun, [facility] [place] [facility] [address] [id number] [place] [address] Jun, [facility] [place] [facility] [address] [id number] [place] [address] 26 May, 2014 [facility] [place] [facility] [address] [id number] [place] [address] 25 May, 2014 [facility] [place] [facility] [address] [id number] [place] [address] 25 May, 2014 [facility] [place] [facility] [address] [id number] [place] [address] 18 May, 2014 [facility] [place] [facility] [address] [id number] [place] [address] 18 May, 2014 [facility] [place] [facility] [address] [id number] [place] [address] 17 May, 2014 [facility] [place] [facility] [address] [id number] [place] [address] 17 May, 2013 [facility] [place] [facility] [address] [id number] [place] [address] May, 2013 [facility] [place] [facility] [address] [id number] [place] [address] May, 2013 [facility] [place] [facility] [address] [id number] [place] [address] May, 2013 [facility] [place] [facility] [address] [id number] [place] [address] May, 2013 [facility] [place] [facility] [address] [id number] [place] [address] May, 2013 [facility] [place] [facility] [address] [id number] [place] [address] May, 2013 [facility] [place] [facility] [address] [id number] [place] [address] May, 2013 [facility] [place] [facility] [address] [id number] [place] [address] May, 2013 [facility] [place] [facility] [address] [id number] [place] [address] May, 2013 [facility] [place] [facility] [address] [id number] [place] [address] Apr, [facility] [place] [facility] [address] [id number], [place] [address] Apr, [facility] [place] [facility] [address] [id number] [place] [address] Apr, [facility] [place] [facility] [address] [id number] [place] [address] Apr, [facility] [place] [facility] [address] [id number] [place] [address] Mar, [facility] [place] [facility] [address] [id number] [place] [address] Mar, [facility] [place] [facility] [address] [id number] [place] [address] Mar, [facility] [place] [facility] [address] [id number] [place] [address] Mar, [facility] [place] [facility] [address] [id number] [place] [address] Mar, [facility] [place] [facility] [address] [id number] [place] [address] Mar, [facility] [place] [facility] [address] [id number] [place] [address] Mar, [facility] [place] [facility] [address] [id number] [place] [address] Mar, [facility] [place] [facility] [address] [id number] [place] [address] Mar, [facility] [place] [facility] [address] [id number] [place] [address] Feb, [facility] [place] [facility] [address] [id number] [place] [address] Feb, [facility] [place] [facility] [address] [id number] [place] [address] Feb, [facility] [place] [facility] [address] [id number] [place] [address] Feb, [facility] [place] [facility] [address] [id number] [place] [address] January, [facility] [place] [facility] [address] [id number] [place] [address] January, [facility] [place] [facility] [address] [id number] [place] [address] January, [facility] [place] [facility] [address] [id number] [place] [address] January, [facility] [place] [facility] [address] [id number] [place] [address] Dec, [facility] [place] [facility] [address] [id number] [place] [address] Dec, [facility] [place] [facility] [address] [id number] [place] [address] Dec, [facility] [place] [facility] [address] [id number] [place] [address] Dec, [facility] [place] [facility] [address] [id number] [place] [address] Dec, [facility] [place] [facility] [address] [id number] [place] [address] Dec, [facility] [place] [facility] [address] [id number] [place] [address] Dec, [facility] [place] [facility] [address] [id number] [place] [address] Nov, [facility] [place] [facility] [address] [id number] [place] [address] Nov, [facility] [place] [facility] [address] [id number] [place] [address] Nov, [facility] [place] [facility] [address] [id number] [place] [address] Nov, [facility] [place] [facility] [address] [id number] [place] [address] Nov, [facility] [place] [facility] [address] [id number] [place] [address] 18 Nov, 2013 [facility] [place] [facility] [address] [id number] [place] [address] Nov, [facility] [place] [facility] [address] [id number] [place] [address] 05 Oct, 2013 [facility] [place] [facility] [address] [id number], [place] [address] Oct, [facility] [address] [id number] [place] [address] Oct, [facility] [place] [facility] [address] [id number] [place] [address] Oct, [facility] [place] [facility] [address] [facility] [id number] [place] [address] Sep, [facility] [place] [facility] [address] [id number] [place] [address] Sep, [facility] [place] [facility] [address] [id number] [place] [address] Aug, [facility] [place] [facility] [address] [id number] [place] [address] Aug, [facility] [address] [facility] [id number], [place] [address] Aug, [facility] [place] [facility] [address] [id number], [place] [address] Jul, [facility] [place] [facility] [address] [id number], [place] [address] Jul, [facility] [place] [facility] [address] [facility] [id number], [place] [address] Jul, [facility] [place] [facility] [address] [id number], [place] [address] Jul, [facility] [place] [facility] [address] [id number], [place] [address] Jun, [facility] [place] [facility] [address] [id number], [place] [address] Jun, [facility] [place] [facility] [address] [id number][place] [address] Jun, [facility] [place] [facility] [address] [facility] [id number][place] [address] Jun, [facility] [place] [facility] [address] [facility] [id number] [place] [address] Mar, IMMUNIZATIONS No Known Immunizations SOCIAL HISTORY Never Assessed REASON FOR VISIT PLAN OF CARE VITAL SIGNS Height 63 in 2014-11-08 Weight 142.3 lbs 2014-11-08 Temperature 98 degrees Fahrenheit 2014-11-08 Blood pressure systolic 110 mmHg 2014-11-08 Blood pressure diastolic 68 mmHg 2014-11-08 MEDICATIONS No Known Medications RESULTS No Results PROCEDURES Procedure Date Ordered Result Body Site URINE TEST Nov 08, 2014 INSTRUCTIONS MEDICATIONS ADMINISTERED No Known Medications MEDICAL (GENERAL) HISTORY Type Description Date Surgical History D&C Hospitalization History past child
--- OUTSIDE RECORDS SUMMARY | 2019-04-04 13:33 | XMS REPORT ---
Author Author MAL Felder Organization [facility] Address [address] [place] [address] Care Team Providers Care Senior Ssis Developer Name Role Phone MAL Felder Unavailable PROBLEMS Unknown Problems ALLERGIES No Information ENCOUNTERS Encounter Location Date Diagnosis [facility] WALK IN [facility] [address] [address] January, Viral URI J06.[address] [facility] [place] [address] [address] Oct, Acute gastroenteritis K52.9 [facility] [address] [place] [address] May, Pelvic pain R10.[address] [address] Apr, Acute non-recurrent maxillary sinusitis J01.[address] [address] Aug, Miscarriage O03.[address] [address] Aug, Threatened miscarriage O20.[address] [address] Aug, Threatened miscarriage O20.0 [facility] WALK IN [facility] [address] [address] Apr, Sore throat J02.9 and Acute nasopharyngitis (common cold) J[address] [address] 07 Feb, 2016 Other seasonal allergic rhinitis J30.2 and Acute otitis externa of right ear, unspecified type H60.501 [place] [id number] [place] [address] January, Missed O02.1 and S/P D&C (status post dilation and curettage) Z98.89 [facility] [address] [place] [id number] January, Visit for dental examination Z01.20 [place] [id number] [place] [address] January, Missed O02.[address] [address] January, care, subsequent in first trimester Z34.81 [place] [address] [address] Dec, care, subsequent in first trimester Z34.81 and 11 weeks gestation of Z3A.11 [place] [id number] [place] [address] Nov, with 7 completed weeks gestation Z3A.01 ; Encounter for immunization Z23 ; care, subsequent in first trimester Z34.81 ; Nausea and vomiting during O21.9 and Other constipation K59.09 [place] [id number] [place] [address] Nov, [place] [address] [address] Oct, Encounter for test, result positive Z32.01 [place] [address] [address] 15 Aug, 2015 Sinusitis J32.9 and Abdominal pain R10.9 [place] [id number] [place] [address] January, Pre-employment examination V70.5 [place] [address] [place] [address] 14 Dec, 2014 [facility] [place] [facility] [address] [id number] [place] [address] 13 Dec, 2014 [facility] [place] [facility] [address] [id number] [place] [address] 18 Oct, 2014 [facility] [place] [facility] [address] [id number] [place] [address] Oct, [facility] [place] [facility] [address] [id number] [place] [address] Jul, [facility] [place] [facility] [address] [id number] [place] [address] Jul, [facility] [place] [facility] [address] [id number] [place] [address] Jun, [facility] [place] [facility] [address] [id number] [place] [address] Jun, [facility] [place] [facility] [address] [id number] [place] [address] Jun, [facility] [place] [facility] [address] [id number] [place] [address] Jun, [facility] [place] [facility] [address] [id number] [place] [address] 26 May, 2014 [facility] [place] [facility] [address] [id number] [place] [address] 25 May, 2014 [facility] [place] [facility] [address] [id number] [place] [address] 25 May, 2014 [facility] [place] [facility] [address] [id number] [place] [address] 18 May, 2014 [facility] [place] [facility] [address] [id number] [place] [address] 18 May, 2014 [facility] [place] [facility] [address] [id number] [place] [address] 17 May, 2014 [facility] [place] [facility] [address] [id number] [place] [address] 17 May, 2013 [facility] [place] [facility] [address] [id number] [place] [address] May, 2013 [facility] [place] [facility] [address] [id number] [place] [address] May, 2013 [facility] [place] [facility] [address] [id number] [place] [address] May, 2013 [facility] [place] [facility] [address] [id number] [place] [address] May, 2013 [facility] [place] [facility] [address] [id number] [place] [address] May, 2013 [facility] [place] [facility] [address] [id number] [place] [address] May, 2013 [facility] [place] [facility] [address] [id number] [place] [address] May, 2013 [facility] [place] [facility] [address] [id number] [place] [address] May, 2013 [facility] [place] [facility] [address] [id number] [place] [address] May, 2013 [facility] [place] [facility] [address] [id number] [place] [address] Apr, [facility] [place] [facility] [address] [id number], [place] [address] Apr, [facility] [place] [facility] [address] [id number] [place] [address] Apr, [facility] [place] [facility] [address] [id number] [place] [address] Apr, [facility] [place] [facility] [address] [id number] [place] [address] Mar, [facility] [place] [facility] [address] [id number] [place] [address] Mar, [facility] [place] [facility] [address] [id number] [place] [address] Mar, [facility] [place] [facility] [address] [id number] [place] [address] Mar, [facility] [place] [facility] [address] [id number] [place] [address] Mar, [facility] [place] [facility] [address] [id number] [place] [address] Mar, [facility] [place] [facility] [address] [id number] [place] [address] Mar, [facility] [place] [facility] [address] [id number] [place] [address] Mar, [facility] [place] [facility] [address] [id number] [place] [address] Mar, [facility] [place] [facility] [address] [id number] [place] [address] Feb, [facility] [place] [facility] [address] [id number] [place] [address] Feb, [facility] [place] [facility] [address] [id number] [place] [address] Feb, [facility] [place] [facility] [address] [id number] [place] [address] Feb, [facility] [place] [facility] [address] [id number] [place] [address] January, [facility] [place] [facility] [address] [id number] [place] [address] January, [facility] [place] [facility] [address] [id number] [place] [address] January, [facility] [place] [facility] [address] [id number] [place] [address] January, [facility] [place] [facility] [address] [id number] [place] [address] Dec, [facility] [place] [facility] [address] [id number] [place] [address] Dec, [facility] [place] [facility] [address] [id number] [place] [address] Dec, [facility] [place] [facility] [address] [id number] [place] [address] Dec, [facility] [place] [facility] [address] [id number] [place] [address] Dec, [facility] [place] [facility] [address] [id number] [place] [address] Dec, [facility] [place] [facility] [address] [id number] [place] [address] Dec, [facility] [place] [facility] [address] [id number] [place] [address] Nov, [facility] [place] [facility] [address] [id number] [place] [address] Nov, [facility] [place] [facility] [address] [id number] [place] [address] Nov, [facility] [place] [facility] [address] [id number] [place] [address] Nov, [facility] [place] [facility] [address] [id number] [place] [address] Nov, [facility] [place] [facility] [address] [id number] [place] [address] 18 Nov, 2013 [facility] [place] [facility] [address] [id number] [place] [address] Nov, [facility] [place] [facility] [address] [id number] [place] [address] 05 Oct, 2013 [facility] [place] [facility] [address] [id number], [place] [address] Oct, [facility] [address] [id number] [place] [address] Oct, [facility] [place] [facility] [address] [id number] [place] [address] Oct, [facility] [place] [facility] [address] [facility] [id number] [place] [address] Sep, [facility] [place] [facility] [address] [id number] [place] [address] Sep, [facility] [place] [facility] [address] [id number] [place] [address] Aug, [facility] [place] [facility] [address] [id number] [place] [address] Aug, [facility] [address] [facility] [id number][place] [address] Aug, [facility] [place] [facility] [address] [id number], [place] [address] Jul, [facility] [place] [facility] [address] [id number], [place] [address] Jul, [facility] [place] [facility] [address] [facility] [id number], [place] [address] Jul, [facility] [place] [facility] [address] [id number], [place] [address] Jul, [facility] [place] [facility] [address] [id number], [place] [address] Jun, [facility] [place] [facility] [address] [id number], [place] [address] Jun, [facility] [place] [facility] [address] [id number], [place] [address] Jun, [facility] [place] [facility] [address] [facility] [id number], [place] [address] Jun, [facility] [place] [facility] [address] [facility] [id number] [place] [address] Mar, IMMUNIZATIONS No Known Immunizations SOCIAL HISTORY Never Assessed REASON FOR VISIT PLAN OF CARE VITAL SIGNS Height 63 in 2014-01-30 Weight 156.1 lbs 2014-01-30 Temperature 97.6 degrees Fahrenheit 2014-01-30 Heart Rate 120 bpm 2014-01-30 Respiratory Rate 24 2014-01-30 Blood pressure systolic 110 mmHg 2014-01-30 Blood pressure diastolic 50 mmHg 2014-01-30 MEDICATIONS No Known Medications RESULTS No Results PROCEDURES Procedure Date Ordered Result Body Site OB US >/=14 WKS, SNGL FETUS January 30, 2014 URINE-NO MICRO January 30, 2014 INSTRUCTIONS MEDICATIONS ADMINISTERED No Known Medications MEDICAL (GENERAL) HISTORY Type Description Date Surgical History D&C Hospitalization History past child
--- OUTSIDE RECORDS SUMMARY | 2019-04-04 13:33 | XMS REPORT ---
Author Author EDGARDO VALENTINA [facility] Address [address] [place] [address] Care Team Providers Care Sheet Sorter Name Role Phone VALENTINA REYNOSO Unavailable PROBLEMS Unknown Problems ALLERGIES No Information ENCOUNTERS Encounter Location Date Diagnosis [facility] [address] [address] January, Viral URI J06.9 [facility] [address] [address] 16 Oct, 2018 Acute gastroenteritis K52.[address] [address] 07 May, 2018 Pelvic pain R10.[address] [address] Apr, Acute non-recurrent maxillary sinusitis J01.[address] [address] Aug, Miscarriage O03.[address] [address] Aug, Threatened miscarriage O20.[address] [address] Aug, Threatened miscarriage O20.0 [facility] [address] [address] Apr, Sore throat J02.9 and Acute nasopharyngitis (common cold) J00 [address] [address] 07 Feb, 2016 Other seasonal allergic rhinitis J30.2 and Acute otitis externa of right ear, unspecified type H60.501 [place] [address] [place] [id number] [place] [address] January, Missed O02.1 and S/P D&C (status post dilation and curettage) Z98.89 [facility] [id number] [place] [id number] January, Visit for dental examination Z01.20 [place] [address] [address] January, Missed O02.[address] [address] January, care, subsequent in first trimester Z34.81 [place] [address] [address] Dec, care, subsequent in first trimester Z34.81 and 11 weeks gestation of Z3A.11 [place] [id number] [place] [address] Nov, with 7 completed weeks gestation Z3A.01 ; Encounter for immunization Z23 ; care, subsequent in first trimester Z34.81 ; Nausea and vomiting during O21.9 and Other constipation K59.09 [place] [id number] [place] [address] Nov, [place] [address] [address] Oct, Encounter for test, result positive Z32.[address] [address] Aug, Sinusitis J32.9 and Abdominal pain R10.9 [place] [id number] [place] [address] January, Pre-employment examination V70.5 [place] [address] [place] [id number] [place] [address] 14 Dec, 2014 [facility] [place] [facility] [address] [id number] [place] [address] 13 Dec, 2014 [facility] [place] [facility] [address] [id number] [place] [address] 18 Oct, 2014 [facility] [place] [facility] [address] [id number] [place] [address] Oct, [facility] [place] [facility] [address] [id number] [place] [address] Jul, [facility] [place] [facility] [address] [id number] [place] [address] Jul, [facility] [place] [facility] [address] [id number] [place] [address] Jun, [facility] [place] [facility] [address] [id number] [place] [address] Jun, [facility] [place] [facility] [address] [id number] [place] [address] Jun, [facility] [place] [facility] [address] [id number] [place] [address] Jun, [facility] [place] [facility] [address] [facility] [id number] [place] [address] 26 May, 2014 [facility] [place] [facility] [address] [id number] [place] [address] 25 May, 2014 [facility] [place] [facility] [address] [id number] [place] [address] 25 May, 2014 [facility] [place] [facility] [address] [id number] [place] [address] 18 May, 2014 [facility] [place] [facility] [address] [id number] [place] [address] 18 May, 2013 [facility] [place] [facility] [address] [id number] [place] [address] May, 2013 [facility] [place] [facility] [address] [id number] [place] [address] May, 2013 [facility] [place] [facility] [address] [id number] [place] [address] May, 2013 [facility] [place] [facility] [address] [id number] [place] [address] May, 2013 [facility] [place] [facility] [address] [id number] [place] [address] May, 2013 [facility] [place] [facility] [address] [id number] [place] [address] May, 2013 [facility] [place] [facility] [address] [id number] [place] [address] May, 2013 [facility] [place] [facility] [address] [id number] [place] [address] May, 2013 [facility] [place] [facility] [address] [id number] [place] [address] May, 2013 [facility] [place] [facility] [address] [id number] [place] [address] May, 2013 [facility] [place] [facility] [address] [id number] [place] [address] May, 2013 [facility] [place] [facility] [address] [id number], [place] [address] Apr, [facility] [place] [facility] [address] [id number], [place] [address] Apr, [facility] [place] [facility] [address] [id number] [place] [address] Apr, [facility] [place] [facility] [address] [id number] [place] [address] Apr, [facility] [place] [facility] [address] [id number] [place] [address] Mar, [facility] [place] [facility] [address] [id number], [place] [address] Mar, [facility] [place] [facility] [address] [id number] [place] [address] Mar, [facility] [place] [facility] [address] [id number] [place] [address] Mar, [facility] [place] [facility] [address] [id number] [place] [address] Mar, [facility] [place] [facility] [address] [id number] [place] [address] Mar, [facility] [place] [facility] [address] [id number] [place] [address] Mar, [facility] [place] [facility] [address] [id number] [place] [address] Mar, [facility] [place] [facility] [address] [id number] [place] [address] Mar, [facility] [place] [facility] [address] [id number] [place] [address] Feb, [facility] [place] [facility] [address] [id number] [place] [address] Feb, [facility] [place] [facility] [address] [id number] [place] [address] Feb, [facility] [place] [facility] [address] [id number] [place] [address] Feb, [facility] [place] [facility] [address] [id number] [place] [address] January, [facility] [place] [facility] [address] [id number] [place] [address] January, [facility] [place] [facility] [address] [id number] [place] [address] January, [facility] [place] [facility] [address] [id number] [place] [address] January, [facility] [place] [facility] [address] [id number] [place] [address] Dec, [facility] [place] [facility] [address] [id number] [place] [address] Dec, [facility] [place] [facility] [address] [id number] [place] [address] Dec, [facility] [place] [facility] [address] [id number] [place] [address] Dec, [facility] [place] [facility] [address] [id number] [place] [address] Dec, [facility] [place] [facility] [address] [id number] [place] [address] Dec, [facility] [place] [facility] [address] [id number] [place] [address] Dec, [facility] [place] [facility] [address] [id number] [place] [address] Nov, [facility] [place] [facility] [address] [id number] [place] [address] Nov, [facility] [place] [facility] [address] [id number] [place] [address] Nov, [facility] [place] [facility] [address] [id number] [place] [address] 18 Nov, 2013 [facility] [place] [facility] [address] [id number] [place] [address] 18 Nov, 2013 [facility] [place] [facility] [address] [id number] [place] [address] 18 Nov, 2013 [facility] [place] [facility] [address] [id number] [place] [address] 18 Nov, 2013 [facility] [place] [facility] [address] [id number] [place] [address] 05 Oct, 2013 [facility] [place] [facility] [address] [id number] [place] [address] Oct, [facility] [place] [facility] [address] [id number] [place] [address] Oct, [facility] [place] [facility] [address] [id number] [place] [address] Oct, [facility] [place] [facility] [address] [id number] [place] [address] Sep, [facility] [place] [facility] [address] [id number] [place] [address] Sep, [facility] [place] [facility] [address] [id number] [place] [address] Aug, [facility] [place] [facility] [address] [id number] [place] [address] Aug, [facility] [place] [facility] [address] [id number] [place] [address] Aug, [facility] [place] [facility] [address] [id number] [place] [address] Jul, [facility] [place] [facility] [address] [id number] [place] [address] Jul, [facility] [place] [facility] [address] [id number] [place] [address] Jul, [facility] [place] [facility] [address] [id number], [place] [address] Jul, [facility] [place] [facility] [address] [id number], [place] [address] Jun, [facility] [place] [facility] [address] [id number] [place] [address] Jun, [facility] [place] [facility] [address] [id number], [place] [address] Jun, [facility] [place] [facility] [address] [id number] [place] [address] Jun, [facility] [place] [facility] [address] [facility] [id number] [place] [address] Mar, IMMUNIZATIONS No Known Immunizations SOCIAL HISTORY Never Assessed REASON FOR VISIT PLAN OF CARE VITAL SIGNS Height 63 in 2014-06-15 Weight 178.5 lbs 2014-06-15 Temperature 97.3 degrees Fahrenheit 2014-06-15 Heart Rate 97 bpm 2014-06-15 Respiratory Rate 20 2014-06-15 Blood pressure systolic 122 mmHg 2014-06-15 Blood pressure diastolic 69 mmHg 2014-06-15 MEDICATIONS No Known Medications RESULTS No Results PROCEDURES Procedure Date Ordered Result Body Site URINE CULTURE/COLONY COUNT Jun 15, 2014 URINE-NO MICRO Jun 15, 2014 INSTRUCTIONS MEDICATIONS ADMINISTERED No Known Medications MEDICAL (GENERAL) HISTORY Type Description Date Surgical History D&C Hospitalization History past child
--- OUTSIDE RECORDS SUMMARY | 2019-04-04 13:34 | XMS REPORT ---
Author Author Migration, Doctor Organization [facility] Address Unknown Phone Unavailable Care Team Providers Care Primary Montessori Teacher Name Role Phone Migration, Doctor Unavailable Unavailable PROBLEMS Unknown Problems ALLERGIES No Information ENCOUNTERS Encounter Location Date Diagnosis [facility] [address] [address] 16 Oct, 2018 Acute gastroenteritis K52.9 [place] [address] [address] 07 May, 2018 Pelvic pain R10.2 [place] [address] [address] 17 Apr, 2018 Acute non-recurrent maxillary sinusitis J01.00 [place] [address] [address] Aug, Miscarriage O03.9 [place] [address] [address] Aug, Threatened miscarriage O20.0 [place] [address] [address] Aug, Threatened miscarriage O20.0 [facility] [address] [address] Apr, Sore throat J02.9 and Acute nasopharyngitis (common cold) J00 [place] [address] [address] 07 Feb, 2016 Other seasonal allergic rhinitis J30.2 and Acute otitis externa of right ear, unspecified type H60.501 [place] [address] [address] January, Missed O02.1 and S/P D&C (status post dilation and curettage) Z98.89 [facility] [address] [place] [id number] January, Visit for dental examination Z01.20 [place] [id number] [place] [address] January, Missed O02.1 [place] [address] [address] January, care, subsequent in first trimester Z34.81 [place] [address] [address] Dec, care, subsequent in first trimester Z34.81 and 11 weeks gestation of Z3A.11 [place] [address] [place] [address] [id number] [place] [address] Nov, with 7 completed weeks gestation Z3A.01 ; Encounter for immunization Z23 ; care, subsequent in first trimester Z34.81 ; Nausea and vomiting during O21.9 and Other constipation K59.09 [place] [address] [address] [id number] [place] [address] Nov, [place] [address] [id number] [place] [address] Oct, Encounter for test, result positive Z32.01 [place] [address] [address] Aug, Sinusitis J32.9 and Abdominal pain R10.9 [place] [address] [place] [id number] [place] [address] January, Pre-employment examination V70.5 [place] [address] [address] 14 Dec, 2014 [place] [address] [id number] [place] [address] Dec, [place] [address] [place] [address] Oct, 2014 [facility] [place] [facility] [address] [id number] [place] [address] Oct, [facility] [place] [facility] [address] [id number] [place] [address] Jul, [facility] [place] [facility] [address] [facility] [id number] [place] [address] Jul, [facility] [place] [facility] [address] [id number] [place] [address] Jun, [facility] [place] [facility] [address] [id number] [place] [address] Jun, [facility] [place] [facility] [address] [facility] [id number] [place] [address] Jun, [facility] [place] [facility] [address] [facility] [id number] [place] [address] Jun, [facility] [place] [facility] [address] [id number] [place] [address] 26 May, 2013 [facility] [place] [facility] [address] [id number] [place] [address] 25 May, 2013 [facility] [place] [facility] [address] [facility] [id number] [place] [address] 25 May, 2013 [facility] [place] [facility] [address] [facility] [id number] [place] [address] 18 May, 2013 [facility] [place] [facility] [address] [facility] [id number], [place] [address] 18 Sep, 2013 [facility] [place] [facility] [address] [id number] [place] [address] 17 May, 2013 [facility] [place] [facility] [address] [facility] [id number] [place] [address] 17 May, 2013 [facility] [place] [facility] [address] [id number] [place] [address] May, 2013 [facility] [place] [facility] [address] [id number] [place] [address] May, 2013 [facility] [place] [facility] [address] [id number] [place] [address] May, 2013 [facility] [place] [facility] [address] [id number] [place] [address] May, 2013 [facility] [place] [facility] [address] [id number] [place] [address] May, 2013 [facility] [place] [facility] [address] [id number] [place] [address] May, 2013 [facility] [place] [facility] [address] [id number] [place] [address] May, 2013 [facility] [place] [facility] [address] [id number] [place] [address] May, 2013 [facility] [place] [facility] [address] [id number] [place] [address] May, 2013 [facility] [place] [facility] [address] [id number] [place] [address] Apr, [facility] [place] [facility] [address] [id number] [place] [address] Apr, [facility] [place] [facility] [address] [id number] [place] [address] Apr, [facility] [place] [facility] [address] [id number] [place] [address] Apr, [facility] [place] [facility] [address] [id number] [place] [address] Mar, [facility] [place] [facility] [address] [id number] [place] [address] Mar, [facility] [place] [facility] [address] [id number] [place] [address] Mar, [facility] [place] [facility] [address] [id number] [place] [address] Mar, [facility] [place] [facility] [address] [id number] [place] [address] Mar, [facility] [place] [facility] [address] [id number] [place] [address] Mar, [facility] [place] [facility] [address] [id number] [place] [address] Mar, [facility] [place] [facility] [address] [id number] [place] [address] Mar, [facility] [place] [facility] [address] [id number] [place] [address] Mar, [facility] [place] [facility] [address] [id number] [place] [address] Feb, [facility] [place] [facility] [address] [id number] [place] [address] Feb, [facility] [place] [facility] [address] [id number] [place] [address] Feb, [facility] [place] [facility] [address] [id number] [place] [address] Feb, [facility] [place] [facility] [address] [id number] [place] [address] January, [facility] [place] [facility] [address] [id number] [place] [address] January, [facility] [place] [facility] [address] [id number] [place] [address] January, [facility] [place] [facility] [address] [id number] [place] [address] January, [facility] [place] [facility] [address] [id number] [place] [address] Dec, [facility] [place] [facility] [address] [id number] [place] [address] Dec, [facility] [place] [facility] [address] [id number] [place] [address] Dec, [facility] [place] [facility] [address] [id number] [place] [address] Dec, [facility] [place] [facility] [address] [id number] [place] [address] 18 Dec, 2013 [facility] [place] [facility] [address] [id number] [place] [address] Dec, [facility] [place] [facility] [address] [id number] [place] [address] Dec, [facility] [place] [facility] [address] [id number] [place] [address] Nov, [facility] [place] [facility] [address] [id number] [place] [address] Nov, [facility] [place] [facility] [address] [id number] [place] [address] Nov, [facility] [place] [facility] [address] [id number] [place] [address] 18 Nov, 2013 [facility] [place] [facility] [address] [id number] [place] [address] Nov, [facility] [place] [facility] [address] [id number] [place] [address] Nov, [facility] [place] [facility] [address] [id number] [place] [address] Nov, [facility] [place] [facility] [address] [id number] [place] [address] Oct, [facility] [place] [facility] [address] [id number] [place] [address] Oct, [facility] [place] [facility] [address] [id number] [place] [address] Oct, [facility] [place] [facility] [address] [id number] [place] [address] Oct, [facility] [address], [place] [address] Sep, [facility] [address], [place] [address] Sep, [facility] [address], [place] [address] Aug, [facility] [id number] [place] [address] Aug, [facility] [address], [place] [address] Aug, [facility] [id number] [place] [address] Jul, [facility] [id number] [place] [phone] Jul, [facility] [id number] [address] Jul, [facility] [id number] [address] Jul, [facility] [address] [place] [address] Jun, [facility] [id number] [address] Jun, [facility] [address] [address] Jun, [facility] [address] [address] Jun, [facility] [id number] [address] Mar, IMMUNIZATIONS No Known Immunizations SOCIAL HISTORY Never Assessed REASON FOR VISIT EMR-[facility] PLAN OF CARE VITAL SIGNS MEDICATIONS No Known Medications RESULTS No Results PROCEDURES No Known procedures INSTRUCTIONS MEDICATIONS ADMINISTERED No Known Medications MEDICAL (GENERAL) HISTORY Type Description Date Surgical History D&C Hospitalization History past child
--- OUTSIDE RECORDS SUMMARY | 2019-04-04 13:34 | XMS REPORT ---
Author Author Migration, Doctor Organization [facility] Address Unknown Phone Unavailable Care Team Providers Care Standards Engineer Name Role Phone Migration, Doctor Unavailable Unavailable PROBLEMS Unknown Problems ALLERGIES No Information ENCOUNTERS Encounter Location Date Diagnosis [facility] [address] [address] 16 Oct, 2018 Acute gastroenteritis K52.9 [place] [address] [address] 07 May, 2018 Pelvic pain R10.2 [place] [address] [address] 17 Apr, 2018 Acute non-recurrent maxillary sinusitis J01.00 [place] [address] [address] Aug, Miscarriage O03.9 [place] [address] [address] Aug, Threatened miscarriage O20.0 [place] [address] [address] Aug, Threatened miscarriage O20.0 [facility] [address] [address] Apr, Sore throat J02.9 and Acute nasopharyngitis (common cold) J00 [place] [address] [address] 07 Feb, 2016 Other seasonal allergic rhinitis J30.2 and Acute otitis externa of right ear, unspecified type H60.501 [place] [address] [address] January, Missed O02.1 and S/P D&C (status post dilation and curettage) Z98.89 [facility] [id number] [place] [id number] January, Visit for dental examination Z01.20 [place] [address] [place] [id number] [place] [address] January, Missed O02.1 [place] [address] [address] January, care, subsequent in first trimester Z34.81 [place] [address] [address] Dec, care, subsequent in first trimester Z34.81 and 11 weeks gestation of Z3A.11 [place] [address] [place] [id number] [place] [address] Nov, with 7 completed weeks gestation Z3A.01 ; Encounter for immunization Z23 ; care, subsequent in first trimester Z34.81 ; Nausea and vomiting during O21.9 and Other constipation K59.09 [place] [address] [place] [id number] [place] [address] Nov, [place] [address] [place] [id number] [place] [address] Oct, Encounter for test, result positive Z32.01 [place] [address] [address] Aug, Sinusitis J32.9 and Abdominal pain R10.9 [place] [address] [place] [id number] [place] [address] January, Pre-employment examination V70.5 [place] [address] [address] 14 Dec, 2014 [place] [address] [place] [id number] [place] [address] Dec, [place] [address] [place] [address] Oct, 2014 [facility] [place] [facility] [address] [id number] [place] [address] Oct, [facility] [place] [facility] [address] [id number] [place] [address] Jul, [facility] [place] [facility] [address] [facility] [id number] [place] [address] Jul, [facility] [place] [facility] [address] [id number] [place] [address] Jun, [facility] [place] [facility] [address] [id number] [place] [address] Jun, [facility] [place] [facility] [address] [facility] [id number] [place] [address] Jun, [facility] [place] [facility] [address] [facility] [id number] [place] [address] Jun, [facility] [place] [facility] [address] [id number] [place] [address] 26 May, 2013 [facility] [place] [facility] [address] [id number] [place] [address] 25 May, 2013 [facility] [place] [facility] [address] [facility] [id number] [place] [address] 25 May, 2013 [facility] [place] [facility] [address] [facility] [id number] [place] [address] 18 May, 2013 [facility] [place] [facility] [address] [facility] [id number] [address] 18 Sep, 2013 [facility] [place] [facility] [address] [id number] [place] [address] 17 May, 2013 [facility] [place] [facility] [address] [facility] [id number] [place] [address] 17 May, 2013 [facility] [place] [facility] [address] [id number] [place] [address] May, 2013 [facility] [place] [facility] [address] [id number] [place] [address] May, 2013 [facility] [place] [facility] [address] [id number] [place] [address] May, 2013 [facility] [place] [facility] [address] [id number] [place] [address] May, 2013 [facility] [place] [facility] [address] [id number] [place] [address] May, 2013 [facility] [place] [facility] [address] [id number] [place] [address] May, 2013 [facility] [place] [facility] [address] [id number] [place] [address] May, 2013 [facility] [place] [facility] [address] [id number] [place] [address] May, 2013 [facility] [place] [facility] [address] [id number] [place] [address] May, 2013 [facility] [place] [facility] [address] [id number] [place] [address] Apr, [facility] [place] [facility] [address] [id number] [place] [address] Apr, [facility] [place] [facility] [address] [id number] [place] [address] Apr, [facility] [place] [facility] [address] [id number] [place] [address] Apr, [facility] [place] [facility] [address] [id number] [place] [address] Mar, [facility] [place] [facility] [address] [id number] [place] [address] Mar, [facility] [place] [facility] [address] [id number] [place] [address] Mar, [facility] [place] [facility] [address] [id number] [place] [address] Mar, [facility] [place] [facility] [address] [id number] [place] [address] Mar, [facility] [place] [facility] [address] [id number] [place] [address] Mar, [facility] [place] [facility] [address] [id number] [place] [address] Mar, [facility] [place] [facility] [address] [id number] [place] [address] Mar, [facility] [place] [facility] [address] [id number] [place] [address] Mar, [facility] [place] [facility] [address] [id number] [place] [address] Feb, [facility] [place] [facility] [address] [id number] [place] [address] Feb, [facility] [place] [facility] [address] [id number] [place] [address] Feb, [facility] [place] [facility] [address] [id number] [place] [address] Feb, [facility] [place] [facility] [address] [id number] [place] [address] January, [facility] [place] [facility] [address] [id number] [place] [address] January, [facility] [place] [facility] [address] [id number] [place] [address] January, [facility] [place] [facility] [address] [id number] [place] [address] January, [facility] [place] [facility] [address] [id number] [place] [address] Dec, [facility] [place] [facility] [address] [id number] [place] [address] Dec, [facility] [place] [facility] [address] [id number] [place] [address] Dec, [facility] [place] [facility] [address] [id number] [place] [address] Dec, [facility] [place] [facility] [address] [id number] [place] [address] 18 Dec, 2013 [facility] [place] [facility] [address] [id number] [place] [address] Dec, [facility] [place] [facility] [address] [id number] [place] [address] Dec, [facility] [place] [facility] [address] [id number] [place] [address] Nov, [facility] [place] [facility] [address] [id number] [place] [address] Nov, [facility] [place] [facility] [address] [id number] [place] [address] Nov, [facility] [place] [facility] [address] [id number] [place] [address] 18 Nov, 2013 [facility] [place] [facility] [address] [id number] [place] [address] Nov, [facility] [place] [facility] [address] [id number] [place] [address] Nov, [facility] [place] [facility] [address] [id number] [place] [address] Nov, [facility] [place] [facility] [address] [id number] [place] [address] Oct, [facility] [place] [facility] [address] [id number] [place] [address] Oct, [facility] [place] [facility] [address] [id number] [place] [address] Oct, [facility] [place] [facility] [address] [id number] [place] [address] Oct, [facility] [address] [id number] [address] Sep, [facility] [address] [address] Sep, [facility] [address] [address] Aug, [facility] [address] [place] [id number] [place] [address] Aug, [facility] [id number] [place] [address] Aug, [facility] [address] [place] [id number] [place] [address] Jul, [facility] [id number] [place] [address] Jul, [facility] [id number] [place] [address] Jul, [facility] [address] [address] Jul, [facility] [address] [address] Jun, [facility] [address] [address] Jun, [facility] [address] [id number] [address] Jun, [facility] [address] [place] [address] Jun, [facility] [address] [place] [address] Mar, IMMUNIZATIONS No Known Immunizations SOCIAL HISTORY Never Assessed REASON FOR VISIT E[place] [place] CARE VITAL SIGNS MEDICATIONS Medication Instructions Dosage Frequency Start Date End Date Duration Status Amoxicillin 875 mg 1 tablet by Oral route 2 times per day for 10 day(s) Jun, Active Ortho-Cyclen (28) 0.25-35 mg-mcg take 1 tablet by oral route once daily Oct, Active Amoxicillin 500 mg 1 capsule by Oral route 3 times per day for 10 days Mar, Active RESULTS No Results PROCEDURES No Known procedures INSTRUCTIONS MEDICATIONS ADMINISTERED No Known Medications MEDICAL (GENERAL) HISTORY Type Description Date Surgical History D&C Hospitalization History past child
--- OUTSIDE RECORDS SUMMARY | 2019-04-04 13:36 | XMS REPORT | Continuity of Care Document ---
Author Organization Unknown Address Unknown Allergies Active Description Code Type Severity Reaction Onset Reported/Identified Relationship to Patient Clinical Status Yes No Known Drug Allergies [id number] Drug Allergy Mild N/A 07/24/2009 Medications There is no data. Problems Date Dx Coded Attending Type Code Diagnosis Diagnosed By 12/19/2010 Ot 133.0 12/19/2010 Ot 782.1 10/19/2012 Ot 461.9 ACUTE SINUSITIS NOS 10/19/2012 Ot 478.19 OTHER DISEASE OF NASAL CAVITY AND SINUSE 02/22/2013 JESUS COX DO Ot 462 ACUTE PHARYNGITIS 04/20/2013 JOSE GUADALUPE KITCHEN DO 034.0 STREP THROAT 04/20/2013 JOSE GUADALUPE KITCHEN DO 784.1 THROAT PAIN 04/20/2013 ERROL FRANKLIN APRN 034.0 STREP THROAT 04/20/2013 ERROL FRANKLIN APRN 784.1 THROAT PAIN 04/20/2013 FANNY COLOR MAKER FORMULATOR, MAL A 034.0 STREP THROAT 04/20/2013 FANNY COLOR MAKER FORMULATOR, MAL A 784.1 THROAT PAIN 04/20/2013 JOSE GUADALUPE KITCHEN DO K 034.0 STREP THROAT 04/20/2013 JOSE GUADALUPE KITCHEN DO 784.1 THROAT PAIN 04/20/2013 FANNY COLOR MAKER FORMULATOR, MAL A 034.0 STREP THROAT 04/20/2013 FANNY COLOR MAKER FORMULATOR, MAL A 784.1 THROAT PAIN 04/20/2013 FANNY COLOR MAKER FORMULATOR, MAL A 034.0 STREP THROAT 04/20/2013 FANNY COLOR MAKER FORMULATOR, MAL A 784.1 THROAT PAIN 04/20/2013 VALENTINA REYNOSO MD 034.0 STREP THROAT 04/20/2013 VALENTINA REYNOSO MD 784.1 THROAT PAIN 04/20/2013 VALENTINA REYNOSO MD 034.0 STREP THROAT 04/20/2013 VALENTINA REYNOSO MD 784.1 THROAT PAIN 04/20/2013 FANNY COLOR MAKER FORMULATOR, MAL A 034.0 STREP THROAT 04/20/2013 FANNY COLOR MAKER FORMULATOR, MAL A 784.1 THROAT PAIN 04/20/2013 FANNY COLOR MAKER FORMULATOR, MAL A 034.0 STREP THROAT 04/20/2013 FANNY COLOR MAKER FORMULATOR, MAL A 784.1 THROAT PAIN 04/20/2013 VALENTINA [...] MD N 784.1 THROAT PAIN 04/20/2013 FANNY COLOR MAKER FORMULATOR, MLA A 034.0 STREP THROAT 04/20/2013 FANNY COLOR MAKER FORMULATOR, MAL A 784.1 THROAT PAIN 04/20/2013 JOSE GUADALUPE KITCHEN DO 034.0 STREP THROAT 04/20/2013 FIDELINA ATKINS JOSE GUADALUPE K 784.1 THROAT PAIN 06/29/2013 KITCHEN DO, JOSE GUADALUPE K 461.9 SINUSITIS ACUTE 06/29/2013 KITCHEN DO, JOSE GUADALUPE K 462 PHARYNGITIS ACUTE 06/29/2013 KITCHEN DO, JOSE GUADALUPE K 626.0 ABSENCE OF MENSTRUATION 06/29/2013 NOEMI COLOR MAKER FORMULATORERROL Ochoa T 461.9 SINUSITIS ACUTE 06/29/2013 NOEMI COLOR MAKER FORMULATOR, ERROL T 462 PHARYNGITIS ACUTE 06/29/2013 NOEMI COLOR MAKER FORMULATOR, ERROL T 626.0 ABSENCE OF MENSTRUATION 06/29/2013 FANNY COLOR MAKER FORMULATOR, MAL A 461.9 SINUSITIS ACUTE 06/29/2013 FANNY COLOR MAKER FORMULATOR, MAL A 462 PHARYNGITIS ACUTE 06/29/2013 FANNY COLOR MAKER FORMULATOR, MAL A 626.0 ABSENCE OF MENSTRUATION 06/29/2013 KITCHEN DO, JOSE GUADALUPE K 461.9 SINUSITIS ACUTE 06/29/2013 KITCHEN DO, JOSE GUADALUPE K 462 PHARYNGITIS ACUTE 06/29/2013 KITCHEN DO, JOSE GUADALUPE K 626.0 ABSENCE OF MENSTRUATION 06/29/2013 FANNY COLOR MAKER FORMULATOR, MAL A 461.9 SINUSITIS ACUTE 06/29/2013 FANNY COLOR MAKER FORMULATOR, MAL A 462 PHARYNGITIS ACUTE 06/29/2013 FANNY COLOR MAKER FORMULATOR, MAL A 626.0 ABSENCE OF MENSTRUATION 06/29/2013 FANNY COLOR MAKER FORMULATOR, MAL A 461.9 SINUSITIS ACUTE 06/29/2013 FANNY COLOR MAKER FORMULATOR, MAL A 462 PHARYNGITIS ACUTE 06/29/2013 FANNY COLOR MAKER FORMULATOR, MAL A 626.0 ABSENCE OF MENSTRUATION 06/29/2013 VALENTINA REYNOSO MD N 461.9 SINUSITIS ACUTE 06/29/2013 VALENTINA REYNOSO MD 462 PHARYNGITIS ACUTE 06/29/2013 VALENTINA REYNOSO MD N 626.0 ABSENCE OF MENSTRUATION 06/29/2013 VALENTINA REYNOSO MD N 461.9 SINUSITIS ACUTE 06/29/2013 VALENTINA REYNOSO MD N 462 PHARYNGITIS ACUTE 06/29/2013 VALENTINA REYNOSO MD N 626.0 ABSENCE OF MENSTRUATION 06/29/2013 FANNY COLOR MAKER FORMULATOR, MAL A 461.9 SINUSITIS ACUTE 06/29/2013 FANNY COLOR MAKER FORMULATOR, MAL A 462 PHARYNGITIS ACUTE 06/29/2013 FANNY COLOR MAKER FORMULATOR, MAL A 626.0 ABSENCE OF MENSTRUATION 06/29/2013 FANNY COLOR MAKER FORMULATOR, MAL A 461.9 SINUSITIS ACUTE 06/29/2013 FANNY COLOR MAKER FORMULATOR, MAL A 462 PHARYNGITIS ACUTE 06/29/2013 FANNY COLOR MAKER FORMULATOR, MAL A 626.0 ABSENCE OF MENSTRUATION 06/29/2013 [...] UNSPECIFIED SITES 07/06/2013 JOSE GUADALUPE KITCHEN DO K 682.9 CELLULITIS AND ABSCESS OF UNSPECIFIED SITES [...] ESCOBEDO APRN A V74.5 STD SCREEN 08/17/2013 FANNY COLOR MAKER FORMULATOR, MAL A V25.09 CONTRACEPTIVE COUNSELING - GENERAL 08/17/2013 FANNY COLOR MAKER FORMULATOR, AML A V74.5 STD SCREEN 08/17/2013 VALENTINA REYNOSO MD N V25.09 CONTRACEPTIVE COUNSELING - GENERAL 08/17/2013 VALENTINA REYNOSO MD N V74.5 STD SCREEN 08/17/2013 VALENTINA REYNOSO MD N V25.09 CONTRACEPTIVE COUNSELING - GENERAL 08/17/2013 VALENTINA REYNOSO MD N V74.5 STD SCREEN 08/17/2013 FANNY COLOR MAKER FORMULATOR, MAL A V25.09 CONTRACEPTIVE COUNSELING - GENERAL 08/17/2013 FANNY COLOR MAKER FORMULATOR, MAL A V74.5 STD SCREEN 08/17/2013 FANNY COLOR MAKER FORMULATOR, MAL A V25.09 CONTRACEPTIVE COUNSELING - GENERAL 08/17/2013 FANNY COLOR MAKER FORMULATOR, MAL A V74.5 STD SCREEN 08/17/2013 VALENTINA [...] REYNOSO MD V74.5 STD SCREEN 08/17/2013 FANNYBRENDA JUNIOR MAL A V25.09 CONTRACEPTIVE COUNSELING - GENERAL 08/17/2013 FANNY COLOR MAKER FORMULATOR, MAL A V74.5 STD SCREEN 08/17/2013 KITCHEN DO, JOSE GUADALUPE K V25.09 CONTRACEPTIVE COUNSELING - GENERAL 08/17/2013 KITCHEN DO, JOSE GUADALUPE K V74.5 STD SCREEN 10/10/2013 KITCHEN DO, JOSE GUAADLUPE K V72.42 TEST POSITIVE RESULT 10/10/2013 MAL ESCOBEDO APRN A V72.42 TEST POSITIVE RESULT 10/10/2013 MAL ESCOBEDO APRN A V72.42 TEST POSITIVE RESULT 10/10/2013 VALENTINA REYNOSO MD V72.42 TEST POSITIVE RESULT 10/10/2013 VALENTINA REYNOSO MD V72.42 TEST POSITIVE RESULT 10/10/2013 MAL ESCOBEDO APRN A V72.42 TEST POSITIVE RESULT 10/10/2013 MAL [...] REYNOSO MD V72.42 TEST POSITIVE RESULT 10/10/2013 FANNY COLOR MAKER FORMULATOR, MAL A V72.42 TEST POSITIVE RESULT 10/10/2013 JOSE GUADALUPE KITCHEN DO V72.42 TEST POSITIVE RESULT 10/26/2013 FANNY COLOR MAKER FORMULATOR, MAL A V04.81 FLU SHOT 10/26/2013 FANNY COLOR MAKER FORMULATOR, MAL A V22.0 , NORMAL FIRST 10/26/2013 FANNY COLOR MAKER FORMULATOR, MAL A V04.81 FLU SHOT 10/26/2013 FANNY COLOR MAKER FORMULATOR, MAL A V22.0 , NORMAL FIRST 10/26/2013 VALENTINA REYNOSO MD V04.81 FLU SHOT 10/26/2013 VALENTINA REYNOSO MD V22.0 , NORMAL FIRST 10/26/2013 VALENTINA REYNOSO MD V04.81 FLU SHOT 10/26/2013 VALENTINA REYNOSO MD V22.0 , NORMAL FIRST 10/26/2013 FANNY COLOR MAKER FORMULATOR, MAL A V04.81 FLU SHOT 10/26/2013 FANNY COLOR MAKER FORMULATOR, MAL A V22.0 , NORMAL FIRST 10/26/2013 FANNY COLOR MAKER FORMULATOR, MAL A V04.81 FLU SHOT 10/26/2013 FANNY COLOR MAKER FORMULATOR, MAL A V22.0 , NORMAL FIRST 10/26/2013 [...] MD V22.0 , NORMAL FIRST 10/26/2013 FANNY APRN, MAL A V04.81 FLU SHOT 10/26/2013 FANNY COLOR MAKER FORMULATOR, MAL A V22.0 , NORMAL FIRST 10/26/2013 KITCHEN DO, JOSE GUADALUPE K V04.81 FLU SHOT 10/26/2013 KITCHEN DO, JOSE GUADALUPE K V22.0 , NORMAL FIRST 01/11/2014 VALENTINA REYNOSO MD N 465.9 UPPER RESPIRATORY INFECTION 01/11/2014 MAL ESCOBEDO APRN A 465.9 UPPER RESPIRATORY INFECTION 01/11/2014 TREVON ESCOBEDO APRNIDI A 465.9 UPPER RESPIRATORY INFECTION 01/11/2014 VALENTINA [...] UPPER RESPIRATORY INFECTION 01/11/2014 MAL ESCOBEDO APRN 465.9 UPPER RESPIRATORY INFECTION 01/11/2014 JOSE GUADALUPE [...] 03/28/2014 VALENTINA REYNOSO MD V72.40 TEST 03/28/2014 MAL ESCOBEDO APRN A 648.80 ABNORMAL GTT IN 03/28/2014 FANNYMAL Ochoa APRN A V72.40 TEST 03/28/2014 JOSE GUADALUPE KITCHEN DO 648.80 ABNORMAL GTT IN 03/28/2014 JOSE GUADALUPE KITCHEN DO V72.40 TEST 04/11/2014 EDGARDO CHILDERS, VALENTINA N V06.1 TDAP DX 04/11/2014 EDGARDO CHILDERS, VALENTINA Ochoa V06.1 TDAP DX 04/11/2014 EDGARDO CHILDERS, VALENTINA N V06.1 TDAP DX 04/11/2014 EDGARDO CHILDERS, VALENTINA Ochoa V06.1 TDAP DX 04/11/2014 EDGARDO CHILDERS, VALENTINA Ochoa V06.1 TDAP DX 04/11/2014 EDGARDO CHILDERS, VALENTINA Ochoa V06.1 TDAP DX 04/11/2014 EDGARDO CHILDERS, VALENTINA Ochoa V06.1 TDAP DX 04/11/2014 VALENTINA REYNOSO MD V06.1 TDAP DX 04/11/2014 MAL ESCOBEDO APRN A V06.1 TDAP DX 04/11/2014 JOSE GUADALUPE KITCHEN [...] DO V25.01 CONTRACEPTION - ORAL CONTRACEPTION 11/08/2014 JOSE GUADALUPE KITCHEN DO 625.3 DYSMENORRHEA 12/25/2014 JOSE GUADALUPE KITCHEN DO K V74.1 TB SCREENING 12/13/2015 MAL ESCOBEDO COLOR MAKER FORMULATOR Ot V22.0 12/13/2015 MAL ESCOBEDO COLOR MAKER FORMULATOR Ot V28.81 12/13/2015 VALENTINA REYNOSO MD Ot 648.83 12/14/2015 TACOS KERR COLOR MAKER FORMULATOR Ot Z34.81 12/31/2015 TACOS KERR COLOR MAKER FORMULATOR Ot Z34.81 01/24/2016 MALACHI TOM MD N Ot O02.1 MISSED 01/24/2016 MALAHCI TOM MD N Ot Z01.818 ENCOUNTER FOR OTHER PREPROCEDURAL EXAMIN 01/24/2016 MALACHI TOM MD N Ot Z3A.00 WEEKS OF GESTATION OF NOT SPEC 01/24/2016 VALENTINA REYNOSO MD Ot Z34.81 ENCOUNTER FOR SUPRVSN OF NORMAL PREGNANC 01/24/2016 VALENITNA REYNOSO MD Ot Z36 ENCOUNTER FOR SCREENING OF MOT 01/25/2016 MALACHI TOM MD N Ot O02.1 MISSED 01/25/2016 MALACHI TOM MD Ot Z01.818 ENCOUNTER FOR OTHER PREPROCEDURAL EXAMIN 01/25/2016 MALACHI TOM MD N Ot Z3A.00 WEEKS OF GESTATION OF NOT SPEC 01/25/2016 SUZETTE TOM MDIN N Ot O02.1 MISSED 01/28/2016 SUZETTE TOM MDIN N Ot O02.1 MISSED 01/29/2016 SUZETTE TOM MDIN N Ot O02.1 MISSED 02/05/2016 SUZETTE TOM MDIN N Ot O02.1 MISSED 02/05/2016 VALENTINA REYNOSO MD Ot Z34.81 ENCOUNTER FOR SUPRVSN OF NORMAL PREGNANC 02/05/2016 VALENTINA REYNOSO MD Ot Z36 ENCOUNTER FOR SCREENING OF MOT 02/03/2017 MAL ESCOBEDO COLOR MAKER FORMULATOR Ot V22.0 SUPERVIS NORMAL 1ST PREG 02/03/2017 MAL ESCOBEDO COLOR MAKER FORMULATOR Ot V28.81 ENCOUNTER FOR ANATOMIC SURVEY 02/03/2017 [...] 39 WEEKS GESTATION OF 09/03/2017 MAL ESCOBEDO COLOR MAKER FORMULATOR Ot V22.0 SUPERVIS NORMAL 1ST PREG 09/03/2017 MAL ESCOBEDO COLOR MAKER FORMULATOR Ot V28.81 ENCOUNTER FOR ANATOMIC SURVEY 09/03/2017 [...] IN EARLY , UNSPECIFI 09/07/2017 WOOD BOLDEN APRN Ot Z3A.01 LESS THAN 8 WEEKS GESTATION OF 09/07/2017 WOOD BOLDEN COLOR MAKER FORMULATOR Ot Z87.59 PERSONAL HISTORY OF COMP OF PREG, CHLDBR 06/07/2018 MAL ESCOBEDO COLOR MAKER FORMULATOR Ot V22.0 SUPERVIS NORMAL 1ST PREG 06/07/2018 MAL ESCOBEDO COLOR MAKER FORMULATOR Ot V28.81 ENCOUNTER FOR ANATOMIC SURVEY 06/07/2018 VALENTINA REYNOSO MD Ot 648.83 ABN GLUCOSE-ANTEPARTUM 06/07/2018 TACOS KERR COLOR MAKER FORMULATOR Ot Z34.81 ENCOUNTER FOR SUPRVSN OF NORMAL PREGNANC 06/07/2018 VALENTINA REYNOSO MD Ot Z34.81 ENCOUNTER FOR SUPRVSN OF NORMAL PREGNANC 06/07/2018 VALENTINA REYNOSO MD Ot Z36 ENCOUNTER FOR SCREENING OF MOT 06/09/2018 VALENTINA REYNOSO MD Ot N83.202 UNSPECIFIED OVARIAN CYST, LEFT SIDE 06/23/2018 VALENTINA REYNOSO MD Ot N83.202 UNSPECIFIED OVARIAN CYST, LEFT SIDE 11/07/2018 MAL ESCOBEDO COLOR MAKER FORMULATOR Ot V22.0 SUPERVIS NORMAL 1ST PREG 11/07/2018 MAL ESCOBEDO COLOR MAKER FORMULATOR Ot V28.81 ENCOUNTER FOR ANATOMIC SURVEY 11/07/2018 VALENTINA REYNOSO MD Ot 648.83 ABN GLUCOSE-ANTEPARTUM 11/07/2018 TACOS KERR APRN Ot Z34.81 ENCOUNTER FOR SUPRVSN OF NORMAL PREGNANC 11/07/2018 VALENTINA REYNOSO MD Ot Z34.81 ENCOUNTER FOR SUPRVSN OF NORMAL PREGNANC 11/07/2018 VALENTINA REYNOSO MD Ot Z36 ENCOUNTER FOR SCREENING OF MOT 11/07/2018 VALENTINA REYNOSO MD Ot N83.202 UNSPECIFIED OVARIAN CYST, LEFT SIDE 11/10/2018 DIONNA CHILDERS, AMADEO T Ot R11.10 VOMITING, UNSPECIFIED 11/10/2018 AMADEO VILLAREAL MD T Ot R30.0 DYSURIA 11/10/2018 AMADEO VILLAREAL MD T Ot R42 DIZZINESS AND GIDDINESS 11/10/2018 AMADEO VILLAREAL MD T Ot R51 HEADACHE 11/10/2018 DIONNA CHILDERS, AMADEO Holm Ot R63.0 ANOREXIA Procedures Code Description [place] [address] URINE TEST (IN-HOUSE) 06/29/2013 23831 GC/CHLAM PROBE ([facility]) 08/17/2013 66005 CULTURE UROGENITAL 08/20/2013 86729 TRICHOMONAS (IN-HOUSE) 08/22/2013 35434 URINE TEST (IN-HOUSE) 10/10/2013 78842 US OB - EARLY <14 WEEKS 10/26/2013 00431 ROUTINE VENIPUNCTURE 12/06/2013 55869 TRICHOMONAS (IN-HOUSE) 12/06/2013 27701 CBC 12/06/2013 36619 SYPHILLIS-[facility] 12/06/2013 33351 HIV ([facility]) 12/06/2013 36456 ANTIBODY SCREEN (order) 12/06/2013 69742 HEP B SURFACE ANTIGEN (STATE) 12/06/2013 87775 GC/CHLAM PROBE ([facility]) 12/06/2013 37752 TSH 12/06/2013 2543149 ANTIBODY SCREEN (RESULT ONLY) 12/07/2013 68338 RUBELLA ANTIBODY, IGG 12/07/2013 22621 BLOOD TYPE/Rh FACTOR 12/07/2013 64455 CULTURE URINE 12/07/2013 15409 CULTURE UROGENITAL 12/07/2013 15787 ROUTINE VENIPUNCTURE 01/03/2014 30602 UA OB DIP 01/03/2014 TETRA TETRA SCREEN 01/03/2014 47921 US OB - COMPLETE >14 WEEKS 01/30/2014 00158 UA OB DIP 01/30/2014 32124 UA OB DIP 02/27/2014 88149 ROUTINE VENIPUNCTURE 03/28/2014 21237 GLUCOSE JUANA 1 HOUR 03/28/2014 82368 GLUCOSE JUANA 3 HOUR 03/28/2014 32819 CBC 03/28/2014 33703 UA OB DIP 03/28/2014 47945 UA OB DIP 04/11/2014 21121 UA OB DIP 04/25/2014 59499 UA OB DIP 05/10/2014 32658 UA OB DIP 05/25/2014 35637 CULTURE GROUP B STREP VAG 05/25/2014 34924 UA OB DIP 05/30/2014 71944 UA OB DIP 06/07/2014 39707 UA OB DIP 06/15/2014 94308 CULTURE URINE 06/15/2014 07291 UA OB DIP 06/22/2014 75.69 REPAIR OB LACERATION NEC 06/23/2014 41848 TEST, URINE (IN-HOUSE) 08/02/2014 73070 TB TEST INTRADERMAL 12/25/2014 [id number] DELIVERY OF PRODUCTS OF CONCEPTION, EXTE 02/04/2017 [id number] INTRODUCTION OF OTH HORMONE INTO PERIPH 02/04/2017 [id number] INTRODUCE OF OTH THERAP SUBST INTO FEM [...] Automated erythrocyte mean corpuscular hemoglobin concentration measurement (mass/volume) 32 g/dL 32-36 Automated erythrocyte distribution width ratio 14.6 % 10.0- 14.5 Automated blood platelet count (count/volume) 152 10*3/uL [...] Blood monocytes automated count (number/volume) 0.7 10*3 0.0- 1.0 Automated eosinophil count 0.0 10*3/uL 0.0-0.3 Automated blood basophil count (count/volume) 0.0 10*3/uL 0.0-0.1 Blood type T Indirect antibody screen panel - 02/03/17 20:54 ABO+Rh group AP NRG Transfusion band number [id number] NRG Blood group antibody screen NEGATIVE NRG Complete blood count (CBC) with automated [...] Automated erythrocyte mean corpuscular hemoglobin concentration measurement (mass/volume) 31 g/dL 32-36 Automated erythrocyte distribution width ratio 14.8 % 10.0- 14.5 Automated blood platelet count (count/volume) 139 10*3/uL [...] Blood monocytes automated count (number/volume) 0.6 10*3 0.0- 1.0 Automated eosinophil count 0.1 10*3/uL 0.0-0.3 Automated blood basophil count (count/volume) 0.0 10*3/uL 0.0-0.1 Complete urinalysis with reflex to culture - 09/03/17 18:41 Urine color determination YELLOW NRG Urine clarity determination CLEAR NRG Urine pH measurement by test strip 6 5-9 Specific gravity of urine by test strip 1.015 1.016-1.022 Urine protein assay by test strip, semi-quantitative [...] sediment leukocyte count by microscopy (number/high power field) [HPF] NRG Bacteria detection in urine sediment [...] Automated erythrocyte mean corpuscular hemoglobin concentration measurement (mass/volume) 34 g/dL 32-36 Automated erythrocyte distribution width ratio 13.1 % 10.0- 14.5 Automated blood platelet count (count/volume) 260 10*3/uL [...] Blood monocytes automated count (number/volume) 0.5 10*3 0.0- 1.0 Automated eosinophil count 0.1 10*3/uL 0.0-0.3 Automated blood basophil count (count/volume) 0.0 10*3/uL 0.0-0.1 Serum or plasma choriogonadotropin measurement (units/volume) - 09/03/17 18:48 Serum or plasma choriogonadotropin measurement (units/volume) 40 m[iU]/mL <5 HCG, QUANTITATIVE - 09/07/17 12:34 HCG, TOTAL, QN 5 mIU/mL NRG Encounters ACCT No. Visit Date/Time Discharge Status Pt. Type Provider Facility Loc./Unit Complaint [id number] 12/25/2014 11:01:00 12/25/2014 23:59:59 CLS Outpatient ALESSANDRA KITCHEN DOA Valerie [id number] 08/02/2014 13:09:00 08/02/2014 23:59:59 CLS Outpatient MAL ESCOBEDO APRN [id number] 06/22/2014 14:38:00 06/22/2014 23:59:59 CLS Outpatient VALENTINA REYNOSO MD [id number] 06/15/2014 14:16:00 06/15/2014 23:59:59 CLS Outpatient VALENTINA REYNOSO MD [id number] 06/07/2014 14:34:00 06/07/2014 23:59:59 CLS Outpatient VALENTINA REYNOSO MD [id number] 05/30/2014 14:20:00 05/30/2014 23:59:59 CLS Outpatient VALENTINA REYNOSO MD [id number] 05/25/2014 10:28:00 05/25/2014 23:59:59 CLS Outpatient VALENTINA REYNOSO MD [id number] 05/10/2014 10:41:00 05/10/2014 23:59:59 CLS Outpatient VALENTINA REYNOSO MD [id number] 04/25/2014 10:38:00 04/25/2014 23:59:59 CLS Outpatient VALENTINA REYNOSO MD [id number] 04/11/2014 10:40:00 04/11/2014 23:59:59 CLS Outpatient VALENTINA REYNOSO MD [id number] 03/28/2014 09:23:00 03/28/2014 23:59:59 CLS Outpatient VALENTINA REYNOSO MD [id number] 03/28/2014 09:23:00 03/28/2014 23:59:59 CLS Outpatient VALENTINA REYNOSO MD [id number] 02/27/2014 10:33:00 02/27/2014 23:59:59 CLS Outpatient MAL ESCOBEDO APRN Abe [id number] 01/30/2014 10:23:00 01/30/2014 23:59:59 CLS Outpatient TREVON ESCOBEDO APRNSHAISTA Fish [id number] 01/11/2014 09:10:00 01/11/2014 23:59:59 CLS Outpatient VALENTINA REYNOSO MD [id number] 01/03/2014 10:45:00 01/03/2014 23:59:59 CLS Outpatient VALENTINA REYNOSO MD [id number] 12/06/2013 13:39:00 12/06/2013 23:59:59 CLS Outpatient MAL ESCOBEDO APRN Abe [id number] 10/26/2013 11:07:00 10/26/2013 23:59:59 CLS Outpatient MAL ESCOBEDO APRN Abe [id number] 10/10/2013 09:07:00 10/10/2013 23:59:59 CLS Outpatient JOSE GUADALUPE KITCHEN DO [id number] 08/17/2013 09:21:00 08/17/2013 23:59:59 CLS Outpatient MAL ESCOBEDO APRN Abe [id number] 07/06/2013 11:28:00 07/06/2013 23:59:59 CLS Outpatient ERROL FRANKLIN APRN [id number] 06/29/2013 10:45:00 06/29/2013 23:59:59 CLS Outpatient JOSE GUADALUPE KITCEHN DO [id number] 11/06/2018 16:03:00 11/06/2018 18:17:00 DIS Outpatient AMADEO VILLAREAL MD [facility] ER VOMITING [id number] 06/08/2018 13:37:00 06/08/2018 23:59:59 CLS Outpatient VALENTINA REYNOSO MD [facility] RAD PELVIC PAIN [id number] 09/03/2017 18:23:00 09/03/2017 19:53:00 DIS Emergency WOOD BOLDEN APRN [facility] ER VAG BLEEDING,ABD CRAMPING,5WKS PREG [id number] 02/03/2017 20:03:00 02/05/2017 17:35:00 DIS Inpatient MALACHI TOM MD [facility] LDRP INDUCTION [id number] 01/25/2016 10:14:00 01/25/2016 14:05:00 DIS Outpatient MALACHI TOM MD [facility] SDC MISSED AB [id number] 01/24/2016 05:36:00 01/24/2016 10:06:00 DIS Outpatient MALACHI TOM MD [facility] PREOP MISSED AB [id number] 01/22/2016 14:10:00 01/22/2016 23:59:59 CLS Outpatient VALENTINA REYNOSO MD [facility] RAD VIABILITY [id number] 12/13/2015 10:28:00 12/13/2015 23:59:59 CLS Outpatient TACOS KERR APRN [facility] RAD CARE,SUBSEQUENT IN FIRST TRIMES [id number] 06/23/2014 05:57:00 06/25/2014 14:17:00 DIS Inpatient VALENTINA REYNOSO MD [facility] LDRP LABOR [id number] 06/19/2014 13:28:00 06/19/2014 13:45:00 DIS Outpatient VALENTINA REYNOSO MD [facility] WSo ABD CRAMPING [id number] 03/30/2014 13:11:00 03/30/2014 23:59:59 CLS Outpatient VALENTINA REYNOSO MD [facility] LAB ABNORMAL GTT [id number] 02/08/2014 11:33:00 02/08/2014 23:59:59 CLS Outpatient MAL ESCOBEDO APRN [facility] RAD SURVEY [id number] 11/01/2013 14:03:00 11/01/2013 23:59:59 CLS Outpatient MAL ESCOBEDO COLOR MAKER FORMULATOR [facility] RAD DATING [id number] 02/22/2013 19:12:00 02/22/2013 19:47:00 DIS Emergency KENNY ATKINS JESUS Padilla [facility] ER SORE THROAT,HEADACHE [id number] 10/19/2012 13:24:00 Document Registration [id number] 12/19/2010 19:14:00 Document Registration [id number] 02/09/2019 09:30:00 02/09/2019 23:59:59 [facility] Outpatient EDGARDO CHILDERS, [facility] [id number] 09/07/2017 12:20:00 Document Registration
--- NOTE | 2019-04-04 13:40 | ED GU-Female ---
General Stated Complaint: ABD CRAMPING;8 WKS Source: patient Exam Limitations: no limitations History of Present Illness Date Seen by Provider: Apr 04, 2019 Time Seen by Provider: 13:37 Initial Comments This 24-year-old 8 week female presents with a complaint of crampy abdominal pain. Fortunately she's had no associated vaginal bleeding. Her OB is Dr. SOTO. The patient does not know her blood type. Patient denies fever, chills, dysuria, frequency, flank pain, vaginal bleeding or past tissue, shortness of breath, chest pain, nausea, vomiting, or diarrhea. Allergies and Home Medications Allergies Coded Allergies: No Known Drug Allergies (Unverified , 07/24/09) Home Medications Docusate Sodium 100 Mg Capsule, 100 MG PO BID PRN for CONSTIPATION-1ST LINE Prescribed by: MALACHI TOM on 02/04/17 1634 Ferrous Sulfate 325 Mg Tablet, 325 MG PO TIDWM Prescribed by: MALACHI TOM on 02/04/17 1634 Hydrocodone Bit/Acetaminophen 1 Each Tablet, 1-2 TAB PO Q4H PRN for PAIN- MODERATE Prescribed by: MALACHI TOM on 02/04/17 1634 Ibuprofen 600 Mg Tablet, 600 MG PO Q6H Prescribed by: MALACHI TOM on 02/04/17 1634 [id number]/Iron Fumarate/FA/Dss 1 Each Tablet, 1 EACH PO DAILY, (Reported) Patient Home Medication List Home Medication List Reviewed: Yes Review of Systems Review of Systems Constitutional: No chills, No fever EENTM: No blurred vision Respiratory: No cough, No dyspnea on exertion, No short of breath Cardiovascular: No chest pain, No palpitations Gastrointestinal: abdominal pain (cramping abdominal pain.); No diarrhea, No nausea, No vomiting Genitourinary: denies burning, denies dysuria, denies frequency Musculoskeletal: No back pain Skin: No change in color, No rash Psychiatric/Neurological: No Symptoms Reported Endocrine: No Symptoms Reported Hematologic/Lymphatic: No Symptoms Reported Past Lxbjjwx-Ywbffo-Tkfcxu Hx Past Med/Social Hx: Reviewed Nursing Past Med/Soc Hx Patient Social History Recent Foreign Travel: No Contact w/Someone Who Travel: No Recent Hopitalizations: No Immunizations Up To Date Tetanus Booster (TDap): Less than 5yrs PED Vaccines UTD: Yes Seasonal Allergies Seasonal Allergies: No Past Medical History Surgeries: No Respiratory: No Cardiac: No Neurological: No Reproductive Disorders: No (missed ab) Female Reproductive Disorders: Denies Sexually Transmitted Disease: No HIV/AIDS: No Genitourinary: No Gastrointestinal: No Musculoskeletal: No Endocrine: No HEENT: No Cancer: No Psychosocial: No Integumentary: No Blood Disorders: No Adverse Reaction/Blood Tranf: No Family Medical History Diabetes mellitus MATERNAL GRANDMOTHER FH: cancer 19 MOTHER Physical Exam Vital Signs Vital Signs - First Documented 04/04/19 13:36 Temp 97.0 Pulse 103 Resp 20 B/P (MAP) 104/46 (65) Pulse Ox 100 O2 Delivery Room Air Capillary Refill : Height, Weight, BMI Height: 5'2.00" Weight: 130lbs. 0.0oz. 58.535447tm; 32.2 BMI Method:Estimated General Appearance: no apparent distress HEENT: normal ENT inspection Neck: normal inspection Cardiovascular: regular rate, rhythm, no murmur Respiratory: lungs clear, normal breath sounds, no respiratory distress Gastrointestinal: normal bowel sounds; No guarding, No rebound Back: normal inspection Extremities: normal range of motion, non-tender, normal inspection Neurologic/Psychiatric: no motor/sensory deficits, alert, normal mood/affect Skin: normal color, warm/dry Progress/Results/Core Measures Suspected Sepsis SIRS Temperature: Pulse: Respiratory Rate: Laboratory Tests 04/04/19 13:39: White Blood Count 8.3 Blood Pressure / Mean: Laboratory Tests 04/04/19 13:39: Creatinine 0.66, Platelet Count 214, Total Bilirubin 0.2 Results/Orders Lab Results Laboratory Tests Test 04/04/19 13:35 04/04/19 13:39 Range/Units Urine Color YELLOW Urine Clarity CLEAR Urine pH 7 5-9 Urine Specific [place] 1.010 L 1.016-1.022 Urine Protein NEGATIVE NEGATIVE Urine Glucose (UA) NEGATIVE NEGATIVE Urine Ketones NEGATIVE NEGATIVE Urine Nitrite NEGATIVE NEGATIVE Urine Bilirubin NEGATIVE NEGATIVE Urine Urobilinogen 4 H NORMAL MG/DL Urine Leukocyte Esterase 2+ H NEGATIVE Urine RBC (Auto) NEGATIVE NEGATIVE Urine RBC 2-5 H /HPF Urine WBC 2-5 /HPF Urine Squamous Epithelial Cells 10-25 H /HPF Urine Crystals NONE /LPF Urine Bacteria FEW H /HPF Urine Casts NONE /LPF Urine Mucus NEGATIVE /LPF Urine Culture Indicated NO White Blood Count 8.3 4.3-11.0 10^3/uL Red Blood Count 4.02 L 4.35-5.85 10^6/uL Hemoglobin 12.0 11.5-16.0 G/DL Hematocrit 35 35-52 % Mean Corpuscular Volume 88 80-99 FL Mean Corpuscular Hemoglobin 30 25-34 PG Mean Corpuscular Hemoglobin Concent 34 32-36 G/DL Red Cell Distribution Width 12.6 10.0-14.5 % Platelet Count 214 130-400 10^3/uL Mean Platelet Volume 10.7 H 7.4-10.4 FL Neutrophils (%) (Auto) 69 42-75 % Lymphocytes (%) (Auto) 24 12-44 % Monocytes (%) (Auto) 6 0-12 % Eosinophils (%) (Auto) 1 0-10 % Basophils (%) (Auto) 0 0-10 % Neutrophils # (Auto) 5.8 1.8-7.8 X 10^3 Lymphocytes # (Auto) 2.0 1.0-4.0 X 10^3 Monocytes # (Auto) 0.5 0.0-1.0 X 10^3 Eosinophils # (Auto) 0.1 0.0-0.3 10^3/uL Basophils # (Auto) 0.0 0.0-0.1 10^3/uL Sodium Level 138 135-145 MMOL/L Potassium Level 3.3 L 3.6-5.0 MMOL/L Chloride Level 106 98-107 MMOL/L Carbon Dioxide Level 23 21-32 MMOL/L Anion Gap 9 5-14 MMOL/L Blood Urea Nitrogen 9 7-18 MG/DL Creatinine 0.66 0.60-1.30 MG/DL Estimat Glomerular Filtration Rate > 60 BUN/Creatinine Ratio 14 Glucose Level 80 70-105 MG/DL Calcium Level 9.6 8.5-10.1 MG/DL Corrected Calcium 9.5 8.5-10.1 MG/DL Total Bilirubin 0.2 0.1-1.0 MG/DL Aspartate Amino Transf (AST/SGOT) 15 5-34 U/L Alanine Aminotransferase (ALT/SGPT) 9 0-55 U/L Alkaline Phosphatase 32 L 40-136 U/L Total Protein 7.2 6.4-8.2 GM/DL Albumin 4.1 3.2-4.5 GM/DL My Orders Orders - JADE BALLARD MD Cbc With Automated Diff (04/04/19 13:36) Hcg,Quantitative (04/04/19 13:36) Us Ob Single Fetus<14 [id number] (04/04/19 13:36) Comprehensive Metabolic Panel (04/04/19 13:36) Ua Culture If Indicated (04/04/19 13:40) Vital Signs/I&O 04/04/19 13:36 Temp 97.0 Pulse 103 Resp 20 B/P (MAP) 104/46 (65) Pulse Ox 100 O2 Delivery Room Air Capillary Refill : Progress Note : Time: 14:24 Progress Note The patient OB ultrasound demonstrated a viable consistent with the patient's dates. The lab at a record of the patient's previous type and Rh which is A+. The patient's pelvic exam was unremarkable. Routine cultures were obtained. Patient was reassured. She is asked follow up with her masseur/masseuse, Dr. SOTO. She was invited return to emergency Department if any problems or questions. Departure Impression Primary Impression: Intrauterine Additional Impression: Abdominal pain Qualified Codes: R10.30 - Lower abdominal pain, unspecified Disposition: 01 HOME, SELF-CARE Condition: Unchanged Departure-Patient Inst. Decision time for Depature: 14:37 Referrals: VALENTINA REYNOSO MD (PCP/Family) Primary Care Physician FAWN SOTO DO Patient Instructions: Acute Abdomen (Belly Pain), Adult (DC) Add. Discharge Instructions: Close follow-up with Dr. SOTO. Return if any problems or questions. JADE BALLARD MD Apr 04, 2019 13:40
[2019-04-04 13:50] LABS: BASOPHILS % (AUTO) 0 % (0-10); EOSINOPHILS # (AUTO) 0.1 10^3/uL (0.0-0.3); EOSINOPHILS % (AUTO) 1 % (0-10); HEMATOCRIT 35 % (35-52); LYMPHOCYTES % (AUTO) 24 % (12-44); MEAN CORPUSCULAR HEMOGLOBIN 30 PG (25-34); MEAN CORPUSCULAR HGB CONC 34 G/DL (32-36); MEAN CORPUSCULAR VOLUME 88 FL (80-99); MEAN PLATELET VOLUME 10.7 FL (7.4-10.4); MONOCYTES # (AUTO) 0.5 X 10^3 (0.0-1.0); MONOCYTES % (AUTO) 6 % (0-12); NEUTROPHILS # (AUTO) 5.8 X 10^3 (1.8-7.8); NEUTROPHILS % (AUTO) 69 % (42-75); PLATELET COUNT 214 10^3/uL (130-400); RED CELL DISTRIBUTION WIDTH 12.6 % (10.0-14.5); WHITE BLOOD COUNT 8.3 10^3/uL (4.3-11.0)
[2019-04-04 14:02] LABS: BILIRUBIN,URINE NEGATIVE (NEGATIVE); CLARITY,URINE CLEAR; COLOR,URINE YELLOW; GLUCOSE, URINE (UA) NEGATIVE (NEGATIVE); KETONES,URINE NEGATIVE (NEGATIVE); LEUKOCYTE ESTERASE ,URINE 2+ (NEGATIVE); NITRITE,URINE NEGATIVE (NEGATIVE); PH,URINE 7 (5-9); PROTEIN,URINE NEGATIVE (NEGATIVE); UROBILINOGEN,URINE 4 MG/DL (NORMAL)
[2019-04-04 14:14] LABS: ALANINE AMINOTRANSFERASE 9 U/L (0-55); ALBUMIN 4.1 GM/DL (3.2-4.5); ALKALINE PHOSPHATASE 32 U/L (40-136); BILIRUBIN,TOTAL 0.2 MG/DL (0.1-1.0); BUN/CREATININE RATIO 14; CALCIUM 9.6 MG/DL (8.5-10.1); CARBON DIOXIDE 23 MMOL/L (21-32); CHLORIDE 106 MMOL/L (98-107); CREATININE SERUM 0.66 MG/DL (0.60-1.30); GFR ESTIMATED > 60; GLUCOSE 80 MG/DL (70-105); POTASSIUM 3.3 MMOL/L (3.6-5.0); SODIUM 138 MMOL/L (135-145); TOTAL PROTEIN 7.2 GM/DL (6.4-8.2)
[2019-04-04 14:15] LABS: BACTERIA,URINE FEW /HPF
--- NOTE | 2019-04-04 14:48 | Diagnostic Imaging Report ---
PROCEDURE: US OB SINGLE FETUS <14 WKS. TECHNIQUE: Multiple real-time grayscale images were obtained over the gravid uterus in various projections. INDICATION: Patient 8 weeks , complaining of abdominal cramping. There is an intrauterine gestational sac containing a pole. Measurements are consistent with 8 weeks 4 days gestation. heart rate was recorded at 163 beats per minute. Gestational sac shape is within normal limits. No ady-gestational sac hemorrhage is seen. Right ovary was not visualized. Left ovary measures 4.1 x 2.3 x 2.1 cm. Left ovary does contain a 2.6 x 1.7 cm cyst. There is blood flow to left ovary. There is no free fluid. IMPRESSION: Single live IUP 8 weeks 4 days gestational age. Estimated date of confinement sonographically is 11/10/19. Left ovarian cyst. Dictated by: Dictated on workstation # [id number]
[2019-04-04 14:56] VITALS: BP 104/46
== END 2019-04-04 14:56 | disposition home or self-care (01) ==
LOC: EDUNIT# 13:26 → ER 13:27
DX: O26.891 Other specified pregnancy related conditions, first trimester (principal); R10.9 Unspecified abdominal pain; Z3A.08 8 weeks gestation of pregnancy
CPT/HCPCS: 36415; 76801; 80053; 81000; 84702; 85025; 87070; 87205; 87491

== ENCOUNTER → 2019-06-21 | Outpatient (CLI) | payer MEDICAID ==
--- NOTE | 2019-06-21 11:27 | Diagnostic Imaging Report ---
INDICATION: survey. TECHNIQUE: Multiple real-time grayscale images were obtained over the gravid uterus. COMPARISON: 04/04/2019. FINDINGS: The previous OB ultrasound exam of 04/04/2019 noted a single live fetus approximately 8 weeks 4 days gestation. On this study, the fetus is again visualized. The fetus is in breech presentation. heart motion is noted with a rate of 140 bpm recorded. There were no abnormalities identified but the spine was not optimally visualized. The placenta is posterior and there is no previa. The amniotic fluid volume is within normal limits. The cervix was measured and is estimated to be 3.7 cm in length. The growth parameters are fairly uniform and have progressed as expected since the prior study. Biometrical measurements are as follows: Biparietal 4.1 cm, age 18 weeks 4 days. Head circumference 16.85 cm, age 19 weeks 4 days. Abdominal circumference 14.01 cm, age 19 weeks 3 days. Femur length 2.81 cm, age 18 weeks 5 days. Sonographic estimate age: 19 weeks 1 days. Sonographic estimated date of delivery: 11/14/2019. Estimated Weight: 272 gm (+/- 40 gm). LMP percentile: 19%. heart rate: 140 beats per minute. number: 1 of 1. IMPRESSION: 1. There is a single live fetus of approximately 19 weeks gestation plus or minus 1 week. The EDC remains November 10, 2019. 2. There were no abnormalities identified but the spine was not optimally visualized. A short term (four to six week) follow-up exam would be recommended for further study. 3. The growth parameters have progressed as expected since the prior exam. Dictated by: Dictated on workstation # [id number]
== END ==
LOC: RAD 09:58
PROVIDERS: ATTEND Obstetrics & Gynecology
DX: Z34.92 Encounter for supervision of normal pregnancy, unspecified, second trimester (principal); Z3A.19 19 weeks gestation of pregnancy
CPT/HCPCS: 76805

== ENCOUNTER 2019-11-07 06:34 | Inpatient (IN) | payer MEDICAID ==
[~2019-11-07] VITALS: Ht 157.5 cm; Wt 77.3 kg
[2019-11-07] VITALS (34 sets, daily range): BP systolic 90–128; BP diastolic 50–76
--- NOTE | 2019-11-07 06:35 | NUR ---
ERAN GOODMAN presented to unit via ambulation from ED, accompanied by , for scheduled IOL. Pt. weighed, gowned, voided, and to bed. EFHM and TOCO applied, VS taken. Pt. oriented to bed controls, call light, TV, heat, and A/C controls.
[2019-11-07] MEDS ORDERED: D5 LR IV SOLUTION 1,000 ML IV ONE (06:45)
[2019-11-07] MEDS ORDERED: OXYTOCIN PRE-MIX DRIP 500 ML IV ONE (06:45)
--- NOTE | 2019-11-07 07:01 | History & Physical-OB ---
OB - Chief Complaint & HPI Date/Time Date of Admission: Date of Admission: Nov 07, 2019 at 6:34 am Date seen by a Provider: Nov 07, 2019 Time Seen by a Provider: 07:15 Chief Complaint/History OB-Reason for Admission/Chief: Induction of Labor Hx : 4 Hx Para: 2 Expected Date of Delivery: Nov 11, 2019 Gestational Age in Weeks: 39 Gestational Age in Days: 3 Admission Nurse Assessment Rev: Yes History of Labs A pos Antibody neg RI RPR NR HBsAg NR HIV NR GC neg GBS neg Allergies and Home Medications Allergies Coded Allergies: No Known Drug Allergies (Unverified , 07/24/09) Home Medications Docusate Sodium 100 Mg Capsule, 100 MG PO BID PRN for CONSTIPATION-1ST LINE Prescribed by: MALACHI TOM on 02/04/17 1634 Ferrous Sulfate 325 Mg Tablet, 325 MG PO TIDWM Prescribed by: MALACHI TOM on 02/04/17 1634 Hydrocodone Bit/Acetaminophen 1 Each Tablet, 1-2 TAB PO Q4H PRN for PAIN- MODERATE Prescribed by: MALACHI TOM on 02/04/17 1634 Ibuprofen 600 Mg Tablet, 600 MG PO Q6H Prescribed by: MALACHI TOM on 02/04/17 1634 [id number]/Iron Fumarate/FA/Dss 1 Each Tablet, 1 EACH PO DAILY, (Reported) Patient Home Medication List Home Medication List Reviewed: Yes OB - History Hx of Present Care: Yes Ultrasounds: Normal mid trimester US Obstetrical Complications: None Medical Complications: None Obstetrical History Hx Termination: No Hx Multiple Gestation: No Hx Stillbirth: No Hx Complication: No Hx Induced Hypertens: No Hx Maternal Gestational Diabet: No Delivery History Hx Dystocia: No Hx Large For Gestational Age I: Yes ([id number] last , pushed x 2 hours) Hx Small for Gestational Age I: No Hx Section: No Hx Vaginal Delivery Post C-Sec: No Hx Blood Disorders: No Adverse Rxn to Tranfusion: No Patient Past Medical History see above Social History/Family History HIV/AIDS: No Sexually Transmitted Disease: No Immunizations Hepatitis A: Yes Hepatitis B: Yes Tetanus Booster (TDap): Less than 5yrs OB - Admission Exam Physical Exam HEENT: NCAT Heart: Rhythm Normal Lungs: Clear Abdomen: Gravid Extremities: Normal Reflexes: Normal Cervical Dilatation: 4cm Effacement: 75% Station: -1 Membranes: Intact Heart Rate: 130's Accelerations: Accelerations Present Decelerations: No Decelerations Short Term Variability: Present Special Services Agent Variability: Average (6-25) Contractions on Admission: 6-10 Minutes Apart Intensity: Mild Oro Scoring Tool (Modified) Dilation (cm): 3-4cm (2) Effacement (%): 51-79% (2) Descent/Station: -1,0 (2) Cervix Consistency: Soft (2) Cervix Position: Anterior (2) Add 1 point for: Each previous vaginal delivery (1) Oro Score: 12 OB - Assessment/Plan/Diagnosis Assessment Assessment: induction of labor Admission Dx 24 yo @ 39.3 Induction of labor GBS neg Admission Status: Inpatient Order (span 2 midnights) Reason for Inpatient Admission: Induction of labor at 39 weeks Plan Induction Method: FAWN FLOYD DO Nov 07, 2019 7:01 am
[2019-11-07] MEDS: D5 LR IV SOLUTION 1,000 ML IV SCH ×2 (07:15→15:14)
--- NOTE | 2019-11-07 07:15 | NUR ---
#20g IV to Rt.FA x1 attempt by this RN. site patent, secured with opsite. admission labs collected prior to IVF's infusing.
[2019-11-07 09:17] LABS: BASOPHILS % (AUTO) 0 % (0-10); EOSINOPHILS # (AUTO) 0.1 10^3/uL (0.0-0.3); EOSINOPHILS % (AUTO) 1 % (0-10); HEMATOCRIT 28 % (35-52); HEMOGLOBIN 8.7 G/DL (11.5-16.0); LYMPHOCYTES # (AUTO) 1.5 X 10^3 (1.0-4.0); LYMPHOCYTES % (AUTO) 23 % (12-44); MEAN CORPUSCULAR HEMOGLOBIN 26 PG (25-34); MEAN CORPUSCULAR HGB CONC 31 G/DL (32-36); MEAN CORPUSCULAR VOLUME 82 FL (80-99); MEAN PLATELET VOLUME 13.1 FL (7.4-10.4); MONOCYTES # (AUTO) 0.4 X 10^3 (0.0-1.0); MONOCYTES % (AUTO) 6 % (0-12); NEUTROPHILS # (AUTO) 4.6 X 10^3 (1.8-7.8); NEUTROPHILS % (AUTO) 70 % (42-75); PLATELET COUNT 144 10^3/uL (130-400); RED CELL DISTRIBUTION WIDTH 15.1 % (10.0-14.5); WHITE BLOOD COUNT 6.5 10^3/uL (4.3-11.0)
[2019-11-07] MEDS ORDERED: OXYTOCIN PRE-MIX DRIP 500 ML IV SCH ×2 (10:01→15:55)
[2019-11-07] MEDS ORDERED: fentaNYL INJECTION 100 MCG/2 ML AMP ONE (12:22)
[2019-11-07] MEDS ORDERED: BUPIVACAINE 0.25% 30 ML (SENSORCAINE) VIAL ONE (12:22)
--- NOTE | 2019-11-07 12:23 | NUR ---
anesthesia notified of pt's request for epidural placement.
[2019-11-07] MEDS ORDERED: SUFENTA 0.6MCG/ML BUPIVA 0.125 100 ML ONE (12:24)
--- NOTE | 2019-11-07 12:29 | NUR ---
here for epidural placement. Procedure explained, consent reviewed and signed by anesthesia. Questions answered to patient's satisfaction. Time out taken to verify correct patient/procedure. 1235- Patient up to side of bed, assisted into sitting position. Betadine prep done x3 and sterile drape applied. 1238- Local done, see anesthesia record. 1243- Test dose given, see anesthesia record for drug and dosage. Epidural catheter secured in place. Epidural placement complete. 1247-Assisted back into bed, monitors adjusted. Epidural dosed, see anesthesia record. Epidural of Sufenta/Bupvicaine @12cc/hr stated per pump. Patient tolerated procedure well.
[2019-11-07] MEDS ORDERED: LACTATED RINGERS 1,000 ML IV ONE (12:57)
[2019-11-07] MEDS ORDERED: CATHETER FLUSH 10 ML SYR IV PRN (13:00)
[2019-11-07] MEDS ORDERED: diphenhydrAMINE 50 MG/ML INJ (BENADRYL) IV PRN (13:00)
[2019-11-07] MEDS ORDERED: NALOXONE 0.4 MG/ML 1 ML (NARCAN) VIAL IV PRN (13:00)
[2019-11-07] MEDS ORDERED: ONDANSETRON 4 MG/2 ML (SDV) Z0FRAN IV PRN (13:00)
[2019-11-07] MEDS ORDERED: EPIDURAL (SUFENTA 0.6MCG/ML BUPIVA 0.125%) 100 ML BAG EPI SCH (13:00)
[2019-11-07] MEDS ORDERED: CATHETER FLUSH 10 ML SYR IV SCH ×2 (14:00→22:00)
[2019-11-07] MEDS ORDERED: TETANUS,DIPTH,PERTUSS P/F (BOOSTRIX) 0.5 ML VIAL IM ONE (16:00)
[2019-11-07] MEDS ORDERED: WITCH HAZEL(TUCKS) 40 EA JAR TOP PRN (16:00)
[2019-11-07] MEDS ORDERED: HYDROcodone/APAP 5 MG/325 MG (LORTAB) TAB PO PRN (16:00)
[2019-11-07] MEDS ORDERED: BENZOCAINE/MENTHOL (DERMOPLAST) 60 ML CAN TP PRN (16:00)
[2019-11-07] MEDS ORDERED: MEASLES,MUMPS,RUBELLA 1 EA INJ SQ ONE (16:00)
[2019-11-07] MEDS ORDERED: DIBUCAINE (NUPERCAINAL) 1% OINT 30 GM TOP PRN (16:00)
--- NOTE | 2019-11-07 16:01 | OB Labor & Delivery Record ---
L&D History Date of Service Date of Service: Nov 07, 2019 History Expected Date of Delivery: Nov 11, 2019 Gestational Age in Weeks: 39 Hx : 4 Hx Para: 2 Complications Events: Routine care Operative Indications (Cesarea: N/A-Vaginal Delivery Intrapartal Events: None L&D Stage1 Stage One Onset of Labor - Date: Nov 07, 2019 Monitors and Tracing Monitor Mode: External Heart Rate: 150 Monitor Accelerations: Uniform Monitor Decelerations: None Skilled Nursing Variability: Average (6-10) Short Term Variability: Present Presentation: Vertex Vital Signs VS - Last 72 Hours, by Label 11/07/19 11/07/19 11/07/19 11/07/19 06:55 06:55 08:30 08:45 Temp 37.2 37.2 Pulse 98 126 107 100 Resp 18 18 18 18 B/P (MAP) 111/63 (79) 95/50 (65) 128/55 (79) Pulse Ox 98 99 O2 Delivery Room Air Room Air Room Air Room Air 11/07/19 11/07/19 11/07/19 11/07/19 09:00 09:15 09:30 09:45 Pulse 93 Resp 18 18 18 18 B/P (MAP) 101/53 (69) O2 Delivery Room Air Room Air Room Air Room Air 11/07/19 11/07/19 11/07/19 10:00 10:15 10:30 Pulse 102 Resp 18 18 18 B/P (MAP) 117/59 (78) O2 Delivery Room Air Room Air Room Air Rupture of Membranes Spontaneous Ruture of Membrane: No Amniotic Membrane Rupture Time: 1012 Amniotic Membrane Fluid Desc.: Clear Vaginal Bleeding Description: Normal Show Induction/Anesthesia Epidural Cath Placement - Time: 13:00 Progress/Notes Patient induction started with augmentation of contraction pattern with low dose pitocin protocol, followed by AROM. Epidural received and patient progressed to complete and +1 station L&D Stage2 Stage Two Stage II Date: Nov 07, 2019 Monitors and Tracing Monitor Mode: External Heart Rate: 150 Monitor Accelerations: Uniform Monitor Decelerations: Variable Masking Machine Feeder Variability: Average (6-10) Short Term Variability: Present Position: Right Occiput Anterior Presentation: Vertex Cord Descript/Complications Cord Vessel Description: 3 Vessels Delivery Type Delivery Method: Spontaneous Vaginal Anterior Shoulder: Left Episiotomy/Perineal Laceration Laceraction(s)/Extensions: No Condition of Delivery 1 minute Comment: 8 5 minute Comment: 9 Notes Live male infant weight 7lbs 9 oz Condition of Condition of : Living Exam: No Observed Abnormalities Resuscitation Resuscitation: N/A - Spontaneous Resp L&D Stage3 Stage Three Stage III Date: Nov 07, 2019 Pictocin Pitocin Administration mu/min: 4 Pitocin ml/hr: 4 Pitocin Administration Comment: wide open 30 mu min after delivery of placenta Placenta Delivery Placenta Delivery: Spontaneous Delivery Summary Summary Estimated blood loss (mL): 250 Attending at delivery: Fawn Soto DO Condition of Delivery Examined: Cervix Examined, Uterus Explored Post Hemorrhage: No Condition of Mother stable Condition of Infant (s) stable FAWN SOTO DO Nov 07, 2019 4:01 pm
[2019-11-07] MEDS ORDERED: DOCU-244 PO (16:05)
[2019-11-07] MEDS ORDERED: ACHD5005 PO (16:05)
[2019-11-07] MEDS ORDERED: FERR325T18 PO (16:05)
[2019-11-07] MEDS ORDERED: IBUP-844 PO (16:05)
--- NOTE | 2019-11-07 16:06 | Discharge Inst-Women's Service ---
Discharge Inst-Women's Serv Depart Medication/Instructions New, Converted or Re-Newed RX: RX on Chart Final Diagnosis PPD 1 NVD Problems Reviewed?: Yes Consults/Follow Up Additional Follow Up: Yes Orders/Referrals Dr. Soto in 6 weeks Activity Activity: Activity as Tolerated Driving Instructions: No Driving for 1 Week NO SMOKING: NO SMOKING Nothing Inside Vagina: No Douching, No [place], No Tampons Diet Discharge Diet: No Restrictions Symptoms to Report to : Bleeding Excessive, Pain Increased, Fever Over 101 Degrees F, Vaginal Bleeding Increase, Questions/Concerns For Any Problems or Questions: Contact Your Physician FAWN SOTO DO Nov 07, 2019 4:05 pm
--- NOTE | 2019-11-07 17:35 | NUR ---
pt transferred to room 311 via w/c with this RN @ side. pt stable with no sx's of distress noted. call light within reach,
--- NOTE | 2019-11-07 19:23 | NUR ---
report given to TRISTAN Bryant. care assumed of pt.
[2019-11-07] MEDS: DOCUSATE SODIUM 100 MG (COLACE) CAP PO SCH (20:23)
[2019-11-07] MEDS: IBUPROFEN 600 MG (MOTRIN) TAB PO SCH (20:23)
[2019-11-08 00:06] VITALS: BP 97/58
[2019-11-08 03:03] VITALS: BP 93/50
[2019-11-08] MEDS: IBUPROFEN 600 MG (MOTRIN) TAB PO SCH ×5 (03:03→20:23)
[2019-11-08 06:23] LABS: BASOPHILS % (AUTO) 0 % (0-10); EOSINOPHILS # (AUTO) 0.1 10^3/uL (0.0-0.3); EOSINOPHILS % (AUTO) 1 % (0-10); HEMATOCRIT 29 % (35-52); HEMOGLOBIN 9.1 G/DL (11.5-16.0); LYMPHOCYTES # (AUTO) 1.8 X 10^3 (1.0-4.0); LYMPHOCYTES % (AUTO) 23 % (12-44); MEAN CORPUSCULAR HEMOGLOBIN 25 PG (25-34); MEAN CORPUSCULAR HGB CONC 31 G/DL (32-36); MEAN CORPUSCULAR VOLUME 81 FL (80-99); MONOCYTES # (AUTO) 0.5 X 10^3 (0.0-1.0); MONOCYTES % (AUTO) 7 % (0-12); NEUTROPHILS # (AUTO) 5.5 X 10^3 (1.8-7.8); NEUTROPHILS % (AUTO) 69 % (42-75); PLATELET COUNT 153 10^3/uL (130-400); RED CELL DISTRIBUTION WIDTH 15.3 % (10.0-14.5); WHITE BLOOD COUNT 7.9 10^3/uL (4.3-11.0)
--- NOTE | 2019-11-08 07:32 | Postpartum Progress Note ---
RONAK MIR,MED STUDENT 11/08/19 0732: Note Note Day # 1 Subjective: Patient is without complaints. Ambulating, voiding. Tolerating a regular diet without nausea or vomiting. Normal lochia. Pain is well controlled with oral pain medications. Pt concerned her whiteboard lists wrong tobacco grader. Objective: Physical Exam: General - Alert and oriented, no apparent distress Abdomen - Soft, appropriately tender to palpation, non-distended, fundus firm at umbilicus Extremities - no edema, negative Adam's bilaterally Assessment: post- day # 1, status post precipitous vaginal delivery. Recovering well, hemodynamically stable Plan: Routine care. Encourage breast feeding. Encourage ambulation. Ferrous sulfate supplementation. Plan for discharge tomorrow Vitals - Labs Vital Signs - I&O Vital Signs Date Time Temp Pulse Resp B/P (MAP) Pulse Ox O2 Delivery O2 Flow Rate FiO2 11/08/19 03:03 36.8 78 18 93/50 (64) 98 Room Air 11/08/19 00:06 36.9 82 18 97/58 (71) 98 Room Air 11/07/19 20:23 37.2 102 18 99/67 (78) 98 Room Air 11/07/19 17:15 106 18 102/55 (71) Room Air 11/07/19 17:00 105 18 108/57 (74) Room Air 11/07/19 16:45 105 18 103/58 (73) Room Air 11/07/19 16:30 107 18 109/59 (76) Room Air 11/07/19 16:15 114 18 102/57 (72) Room Air 11/07/19 16:00 114 18 106/69 (81) Room Air 11/07/19 15:45 120 18 100/54 (69) Room Air 11/07/19 15:15 117 18 112/74 (87) 100 Room Air 11/07/19 15:00 112 18 103/68 (80) 100 Room Air 11/07/19 14:45 100 18 90/53 (65) 99 Room Air 11/07/19 14:30 114 18 96/51 (66) 99 Room Air 11/07/19 14:15 148 18 104/59 (74) 100 Room Air 11/07/19 14:00 124 18 98/56 (70) 100 Room Air 11/07/19 13:45 109 18 107/61 (76) 100 Room Air 11/07/19 13:30 100 18 105/64 (78) 100 Room Air 11/07/19 13:15 118 18 102/60 (74) 100 Room Air 11/07/19 13:00 115 18 105/55 (72) 99 Room Air 11/07/19 12:55 104 18 100/57 (71) 98 Room Air 11/07/19 12:50 111 18 102/56 (71) 99 Room Air 11/07/19 12:45 108 18 112/57 (75) 99 Room Air 11/07/19 12:40 104 18 104/58 (73) 100 Room Air 11/07/19 12:30 111 18 94/60 (71) Room Air 11/07/19 12:15 98 18 94/60 (71) Room Air 11/07/19 12:00 96 18 114/59 (77) Room Air 11/07/19 11:54 37.1 11/07/19 11:45 91 18 101/61 (74) Room Air 11/07/19 11:30 99 18 100/59 (73) Room Air 11/07/19 11:15 18 Room Air 11/07/19 11:00 88 18 100/58 (72) Room Air 11/07/19 10:45 105 18 114/76 (89) Room Air 11/07/19 10:30 18 Room Air 11/07/19 10:15 102 18 117/59 (78) Room Air 11/07/19 10:00 18 Room Air 11/07/19 09:45 18 Room Air 11/07/19 09:30 18 Room Air 11/07/19 09:15 18 Room Air 11/07/19 09:00 93 18 101/53 (69) Room Air 11/07/19 08:45 100 18 128/55 (79) Room Air 11/07/19 08:30 107 18 95/50 (65) Room Air Labs Laboratory Tests 11/08/19 06:15: White Blood Count 7.9, Red Blood Count 3.59L, Hemoglobin 9.1L, Hematocrit 29L, Mean Corpuscular Volume 81, Mean Corpuscular Hemoglobin 25, Mean Corpuscular Hemoglobin Concent 31L, Red Cell Distribution Width 15.3H, Platelet Count 153, Mean Platelet Volume 12.0H, Neutrophils (%) (Auto) 69, Lymphocytes (%) (Auto) 23, Monocytes (%) (Auto) 7, Eosinophils (%) (Auto) 1, Basophils (%) (Auto) 0, N eutrophils # (Auto) 5.5, Lymphocytes # (Auto) 1.8, Monocytes # (Auto) 0.5, Eosinophils # (Auto) 0.1, Basophils # (Auto) 0.0 OLIVER SOTO DO 11/08/19 0834: Note Note Verification and Attestation of Medical Student E/M Service PPD 1 NVD Acute blood loss anemia A medical student performed and documented this service in my presence. I reviewed and verified all information documented by the medical student and made modifications to such information, when appropriate. I personally performed the physical exam and medical decision making. Oliver Soto, Nov 08, 2019,08:34 RONAK MIR,MED STUDENT Nov 08, 2019 07:32 OLIVER SOTO DO Nov 08, 2019 08:34
--- NOTE | 2019-11-08 07:38 | Anesthesia-Regional Post-Op ---
Regional Patient Condition Mental Status: Alert, Oriented x3 Circulation: Same as Pre-Op Headache: Absent Sensation: Full Recovery Motor Block: Absent Post Op Complications Complications None Follow Up Care/Instructions Patient Instructions None needed. Anesthesia/Patient Condition Patient is doing well, no complaints, stable vital signs, no apparent adverse anesthesia problems. No complications reported per nursing. CELSA LANDA CRNA Nov 08, 2019 07:38
[2019-11-08 08:00] VITALS: BP 96/62
--- NOTE | 2019-11-08 08:00 | NUR ---
ASSESSMENT COMPLETED. VSS. CARING FOR IN ROOM.
[2019-11-08] MEDS: FERROUS SULF 325 MG (IRON) TAB PO SCH (09:44)
[2019-11-08] MEDS: PRENATAL VITAMIN 1 EA TAB PO SCH (09:44)
[2019-11-08] MEDS: DOCUSATE SODIUM 100 MG (COLACE) CAP PO SCH ×2 (09:44→20:23)
--- NOTE | 2019-11-08 10:00 | NUR ---
INFANT TO NURSERY FOR CIRCUMCISION.
--- NOTE | 2019-11-08 10:35 | NUR ---
INFANT RETURNED TO MOM VIA OPEN CRIB. NO ACTIVE BLEEDING OF CIRC. INFORMED OF NEED TO SHOW CIRC CARE WITH NEXT DIAPER CHANGE.
--- NOTE | 2019-11-08 12:00 | NUR ---
NO CHANGE IN STATUS. DENIES PAIN. CARING FOR IN ROOM. GOOD INTERACTION NOTED.
[2019-11-08 12:47] VITALS: BP 92/58
[2019-11-08 15:45] VITALS: BP 97/60
--- NOTE | 2019-11-08 15:45 | NUR ---
VSS. FAMILY AT BEDSIDE.
--- NOTE | 2019-11-08 16:30 | NUR ---
FAMILY CAT BEDSIDE. OFFERS NO COMPLAINTS. POSSIBLE GOING HOME TONIGHT.
[2019-11-08 20:23] VITALS: BP 97/67
[2019-11-09 02:54] VITALS: BP 101/67
[2019-11-09] MEDS: IBUPROFEN 600 MG (MOTRIN) TAB PO SCH ×2 (02:54→09:46)
[2019-11-09 08:00] VITALS: BP 99/57
--- NOTE | 2019-11-09 08:00 | NUR ---
A.M. ASSESSMENT COMPLETED. VSS. CARING FOR IN ROOM. ANXIOUS TO GO HOME.
--- NOTE | 2019-11-09 08:01 | Postpartum Progress Note ---
Note Note Day # 2 Subjective: Patient is without complaints. Ambulating, voiding. Tolerating a regular diet without nausea or vomiting. Normal lochia. Pain is well controlled with oral pain medications. Objective: Physical Exam: General - Alert and oriented, no apparent distress Abdomen - Soft, appropriately tender to palpation, non-distended, fundus firm at umbilicus Extremities - no edema, negative Adam's bilaterally Assessment: PPD 2 NVD Plan: Routine care. Encourage breast feeding. Encourage ambulation. Ferrous sulfate supplementation. Plan for discharge today Vitals - Labs Vital Signs - I&O Vital Signs Date Time Temp Pulse Resp B/P (MAP) Pulse Ox O2 Delivery O2 Flow Rate FiO2 11/09/19 02:54 36.6 72 18 101/67 (78) 99 Room Air 11/08/19 20:23 36.8 87 18 97/67 (77) 99 Room Air 11/08/19 15:45 36.7 76 18 97/60 (72) 99 Room Air 11/08/19 12:47 36.6 74 16 92/58 (69) 100 Room Air FAWN SOTO DO Nov 09, 2019 08:01
[2019-11-09] MEDS: PRENATAL VITAMIN 1 EA TAB PO SCH (09:46)
[2019-11-09] MEDS: DOCUSATE SODIUM 100 MG (COLACE) CAP PO SCH (09:46)
[2019-11-09] MEDS: FERROUS SULF 325 MG (IRON) TAB PO SCH (09:46)
--- NOTE | 2019-11-09 11:10 | NUR ---
DISCHARGE INSTRUCTIONS REVIEWED WITH COPY TO PT. RXS GIVEN. STATES UNDERSTANDING OF ALL INSTRUCTIONS AND NEED TO F/U SCHEDULED AND NEEDED.
[2019-11-09 11:15] VITALS: BP 99/57
--- NOTE | 2019-11-09 11:15 | NUR ---
DISMISSED AMB FROM [facility] WITH TO FAMILY CAR IN STABLE CONDITION ACC BY SPOUSE, OLDER SON, AND ELIAN HUDSON.
== END 2019-11-09 11:15 | disposition home or self-care (01) | DRG 806 ==
LOC: LDRP 06:34
PROVIDERS: ADMIT Obstetrics & Gynecology; ATTEND Obstetrics & Gynecology
PROC: 10E0XZZ Delivery of Products of Conception, External Approach (ICD-10-PCS; principal; 2019-11-07)
PROC: 3E033VJ Introduction of Other Hormone into Peripheral Vein, Percutaneous Approach (ICD-10-PCS; 2019-11-07)
DX: O62.3 Precipitate labor (principal); O90.81 Anemia of the puerperium; D62 Acute posthemorrhagic anemia; Z3A.39 39 weeks gestation of pregnancy; Z37.0 Single live birth
CPT/HCPCS: 36415; 85025; 86850; 86900; 86901

== ENCOUNTER 2023-08-04 18:22 | Observation (INO) | payer MEDICAID ==
[~2023-08-04] VITALS: Ht 157.5 cm; Wt 74.7 kg
[~2023-08-04 18:22] MED LIST changes: +DOCU-239 PO; +IBUP-844 PO
--- NOTE | 2023-08-04 18:52 | ED GU-Female ---
General Chief Complaint: OB < 20 WEEKS Stated Complaint: NO HEARTBEAT IN SONOGRAM - 18 WEEKS PREG Nursing Triage Note: PT AMB TO [facility] 10 WITH NO DIFFICULITY. PT REPORTS RECIEVED A 3D SONOGRAM PORTRAIT PHOTOGRAPHER. PT REPORTS IS APPROX 18 WEEKS PREG. PT STATES US TECH WAS UNABLE TO FIND BABY HEARTBEART. PT DENIES PAIN, VAGINAL BLEEDING AND CRAMPING. Source: patient Exam Limitations: no limitations History of Present Illness Date Seen by Provider: Aug 04, 2023 Time Seen by Provider: 19:35 Initial Comments Patient is a 28-year-old female who is a G5, P3, 1 13-week prior miscarriage who presents to the emergency department with a chief complaint of demise. Patient's last menstrual cycle was March 29, 2023 with an estimated due date of January 03, 2024 placing her at approximately 18 weeks and 1 day . She went to [facility] to get a 3D ultrasound this afternoon and was advised that no heart tones were visible. Patient denies any recent illnesses, denies abdominal cramping or pain. She denies abnormal vaginal discharge or vaginal bleeding. She tells me that the signal tower operator reported to her that the fetus was measuring 13 to 14 weeks. Patient has no significant past medical history. She has had prior breast reduction and tummy tuck. She states her last was approximately 3 years and 9 months ago. She is only taking vitamins. No allergies to medications. Last ate at lunchtime today did have some water prior to going to the clinic this afternoon. Timing/Duration: just prior to arrival Prior Genitourinary Problems: none Associated Symptoms: denies symptoms Allergies and Home Medications Allergies Coded Allergies: No Known Drug Allergies (Unverified , 07/24/09) Patient Home Medication List Home Medication List Reviewed: Yes Docusate Sodium (Dok) 100 Mg Capsule, 100 MG PO BID PRN for CONSTIPATION-1ST LINE Prescribed by: FAWN SOTO on 11/07/191604 Last Action: Reviewed Ferrous Sulfate (Ferrous Sulfate) 325 Mg Tablet, 325 MG PO DAILY Prescribed by: FAWN SOTO on 11/07/191604 Last Action: Reviewed Hydrocodone Bit/Acetaminophen (Lortab 5 Mg Tablet) 1 Tab Tab, 1 TAB PO Q4H PRN for PAIN-MODERATE (5-7) Prescribed by: FAWN SOTO on 11/07/191604 Last Action: Reviewed Ibuprofen (Ibu) 600 Mg Tablet, 600 MG PO Q6HR Prescribed by: FAWN SOTO on 11/07/19 1605 Last Action: Reviewed Mew869/Iron Fumarate/FA/Dss ( 19 Tablet) 1 Each Tablet, 1 EACH PO DAILY, (Reported) Entered as Reported by: EPHRAIM SHELBY on 02/03/172055 Last Action: Reviewed Review of Systems Review of Systems Constitutional: see HPI Respiratory: no symptoms reported Cardiovascular: no symptoms reported Gastrointestinal: no symptoms reported Genitourinary: no symptoms reported Musculoskeletal: no symptoms reported Skin: no symptoms reported Past Cxpvaro-Qvhhyb-Xebwqg Hx Patient Social History Tobacco Use?: No Substance use?: No Alcohol Use?: No Immunizations Up To Date Tetanus Booster (TDap): Less than 5yrs PED Vaccines UTD: Yes Seasonal Allergies Seasonal Allergies: No Past Medical History Surgery/Hospitalization HX: DENIES Surgeries: No Respiratory: No Cardiac: No Neurological: No Reproductive Disorders: No (missed ab) Female Reproductive Disorders: Denies Sexually Transmitted Disease: No HIV/AIDS: No Genitourinary: No Gastrointestinal: No Musculoskeletal: No Endocrine: No HEENT: No Cancer: No Psychosocial: No Integumentary: No Blood Disorders: No Adverse Reaction/Blood Tranf: No Family Medical History Diabetes mellitus MATERNAL GRANDMOTHER FH: cancer 19 MOTHER Physical Exam Vital Signs Vital Signs - First Documented 08/04/23 18:30 Pulse 121 Resp 18 B/P (MAP) 133/64 (87) Pulse Ox 100 Capillary Refill : Less Than 3 Seconds Height, Weight, BMI Height: 5'3.00" Weight: 130lbs. 0.0oz. [id number]; 28.00 BMI Method:Stated General Appearance: WD/WN, moderate distress (tearful/crying) HEENT: PERRL/EOMI Cardiovascular: regular rate, rhythm Respiratory: lungs clear, normal breath sounds, no respiratory distress, no accessory muscle use Gastrointestinal: normal bowel sounds, non tender, soft Extremities: normal range of motion, normal inspection, no pedal edema Neurologic/Psychiatric: alert, normal mood/affect, oriented x 3 Skin: normal color, warm/dry Progress/Results/Core Measures Suspected Sepsis SIRS Temperature: Pulse: 121 Respiratory Rate: 18 Blood Pressure 133 /64 Mean: 87 Results/Orders My Orders Orders - ALBERT PUGA MD Cbc And Automated Diff (08/04/23 18:52) Lactated Ringers 1,000 Ml (Lactated Ring (08/04/23 19:00) Vital Signs/I&O 08/04/23 18:30 Pulse 121 Resp 18 B/P (MAP) 133/64 (87) Pulse Ox 100 Capillary Refill : Less Than 3 Seconds Blood Pressure Mean: 87 Progress Note : Time: 18:52 Progress Note Patient seen and evaluated by me. Evaluation today includes historyand physical exam, kqhmt-wd-echy ultrasound, CBC. Pertinent physical exam findings, well- developed well-nourished female in moderate distress due to grief, loss. Heart is regular, not tachycardic. Lungs are clear, abdomen is soft and nontender. Her vital signs are stable. Differential diagnosis demise Tbkfk-ox-qqff ultrasound used to assess the . No evidence of spontaneous motion or heart tones. She has what appears to be blee ding within the placenta. I concur with what the signal tower operator at the outlying facility found which was demise. Patient is offered my sincere sympathy's. I spoke with Dr. Sigala on for [employer]. She indicated that she would like the CBC and type and screen and that she could be sent up to women services for Cytotec induction. I communicated this with the patient who let her know. He was not present during our evaluation. Patient continued to decline any pain, cramping, discharge or bleeding. Was transferred to women services. Departure Communication (Admissions) Time/Spoke to Admitting Phy: 18:[address] Sigala (OB) Impression Primary Impression: demise before 20 weeks with retention of fetus Disposition: ADMITTED INPATIENT Condition: Stable Admissions Decision to Admit Reason: Admit from ER (General) Decision to Admit/Date: Aug 04, 2023 Time/Decision to Admit Time: 18:52 Departure-Patient Inst. Referrals: FAWN SOTO DO (PCP/Family) Primary Care Physician Copy Copies To 1: FAWN SOTO KATHRYN M MD Aug 04, 2023 18:52
[2023-08-04] MEDS ORDERED: LACTATED RINGERS 1,000 ML 1,000 ML IV SCH (19:00)
[2023-08-04 19:21] LABS: BASOPHILS % (AUTO) 0 % (0-10); EOSINOPHILS # (AUTO) 0.1 10^3/uL (0.0-0.3); EOSINOPHILS % (AUTO) 1 % (0-10); HEMATOCRIT 35 % (35-52); HEMOGLOBIN 11.7 g/dL (11.5-16.0); LYMPHOCYTES % (AUTO) 23 % (12-44); MEAN CORPUSCULAR HEMOGLOBIN 30 pg (25-34); MEAN CORPUSCULAR HGB CONC 33 g/dL (32-36); MEAN CORPUSCULAR VOLUME 91 fL (80-99); MEAN PLATELET VOLUME 10.3 fL (9.0-12.2); MONOCYTES # (AUTO) 0.5 10^3/uL (0.0-1.0); MONOCYTES % (AUTO) 6 % (0-12); NEUTROPHILS % (AUTO) 70 % (42-75); PLATELET COUNT 232 10^3/uL (130-400); WHITE BLOOD COUNT 8.7 10^3/uL (4.3-11.0)
[2023-08-04 19:43] VITALS: BP 104/62
--- NOTE | 2023-08-04 20:42 | History & Physical-OB ---
OB - Chief Complaint & HPI Date/Time Date of Admission: Date of Admission: Aug 04, 2023 at 19:44 Date seen by a Provider: Aug 04, 2023 Time Seen by a Provider: 20:00 Chief Complaint/History OB-Reason for Admission/Chief: Spontaneous (iufd @ 14wk by US ) Hx : 5 Hx Para: 3 Gestational Age in Weeks: 18 Gestational Age in Days: 2 Indication for induction: other ( demise) Admission Nurse Assessment Rev: Yes History of Labs A+ RI Hep B/C neg HIV neg RPR neg Other This 28-year-old G5, P3 presented to labor and delivery via the emergency room after being seen by "massimo rae" where she was planning to get a 3D ultrasound. While she was there the chemic mangler scanned her and did not see FHR activity. The chemic mangler told the patient that she thought the baby was approximately 13 to 14 weeks by size although the patient by dates was 18 weeks 2 days. While in the emergency room was confirmed that there was no FHR activity. The patient and I discussed that this was a missed AB and that her options were to undergo a suction D&E versus misoprostol induction. We discussed the risks and the benefits in detail and together with the patient we did decided to proceed with misoprostol. She did sign consents and is ready to proceed. Allergies and Home Medications Allergies Coded Allergies: No Known Drug Allergies (Unverified , 07/24/09) Patient Home Medication List Home Medication List Reviewed: Yes Docusate Sodium (Dok) 100 Mg Capsule, 100 MG PO BID PRN for CONSTIPATION-1ST LINE Prescribed by: FAWN SOTO on 11/07/191604 Last Action: Reviewed Ferrous Sulfate (Ferrous Sulfate) 325 Mg Tablet, 325 MG PO DAILY Prescribed by: FAWN SOTO on 11/07/191604 Last Action: Reviewed Hydrocodone Bit/Acetaminophen (Lortab 5 Mg Tablet) 1 Tab Tab, 1 TAB PO Q4H PRN for PAIN-MODERATE (5-7) Prescribed by: FAWN SOTO on 11/07/191604 Last Action: Reviewed Ibuprofen (Ibu) 600 Mg Tablet, 600 MG PO Q6HR Prescribed by: FAWN SOTO on 11/07/191604 Last Action: Reviewed Evs612/Iron Fumarate/FA/Dss ( 19 Tablet) 1 Each Tablet, 1 EACH PO DAILY, (Reported) Entered as Reported by: EPHRAIM SHELBY on 02/03/172055 Last Action: Reviewed OB - History Hx of Present Care: Yes Ultrasounds: Abnormal US findings ( demise with fetus measuring 14wk) Obstetrical Complications: None Medical Complications: None Information Induced Hypertension: No Maternal Gestational Diabetes: No Hemorrhage: No Obstetrical History Hx : 5 Hx Para: 3 Hx # Term Pregnancies: 3 Hx # Pregnancies: 0 Number of Living Children: 3 Hx Termination: Yes Hx Total # of Abortions (Spona: 2 Hx Multiple Gestation: No Hx Stillbirth: No Hx Complication: No Hx Induced Hypertens: No Hx Maternal Gestational Diabet: No Delivery History Hx Dystocia: No Hx Large For Gestational Age I: Yes (1tg72xm last , pushed x 2 hours) Hx Small for Gestational Age I: No Hx Section: No Hx Vaginal Delivery Post C-Sec: No Hx Blood Disorders: No Adverse Rxn to Tranfusion: No Patient Past Medical History see above Social History/Family History Alcohol Use: Denies Use Smoking Cessation: Never smoker Immunizations Influenza Vaccine Up-to-Date: Yes; Up-to-Date Hepatitis A: Yes Hepatitis B: Yes Tetanus Booster (TDap): Less than 5yrs OB - Admission Exam Physical Exam Vitals: Vital Signs 08/04/23 19:39 Pulse 88 Resp 18 B/P (MAP) 105/80 Pulse Ox 98 O2 Delivery Room Air HEENT: NCAT Heart: Rhythm Normal Lungs: Clear Abdomen: Gravid Extremities: Normal Reflexes: Normal Labs Laboratory Tests Test 08/04/23 19:12 Range/Units White Blood Count 8.7 4.3-11.0 10^3/uL Red Blood Count 3.88 3.80-5.11 10^6/uL Hemoglobin 11.7 11.5-16.0 g/dL Hematocrit 35 35-52 % Mean Corpuscular Volume 91 80-99 fL Mean Corpuscular Hemoglobin 30 25-34 pg Mean Corpuscular Hemoglobin Concent 33 32-36 g/dL Red Cell Distribution Width 12.4 10.0-14.5 % Platelet Count 232 130-400 10^3/uL Mean Platelet Volume 10.3 9.0-12.2 fL Immature Granulocyte % (Auto) 0 % Neutrophils (%) (Auto) 70 42-75 % Lymphocytes (%) (Auto) 23 12-44 % Monocytes (%) (Auto) 6 0-12 % Eosinophils (%) (Auto) 1 0-10 % Basophils (%) (Auto) 0 0-10 % Neutrophils # (Auto) 6.0 1.8-7.8 10^3/uL Lymphocytes # (Auto) 2.0 1.0-4.0 10^3/uL Monocytes # (Auto) 0.5 0.0-1.0 10^3/uL Eosinophils # (Auto) 0.1 0.0-0.3 10^3/uL Basophils # (Auto) 0.0 0.0-0.1 10^3/uL Immature Granulocyte # (Auto) 0.0 0.0-0.1 10^3/uL OB - Assessment/Plan/Diagnosis Assessment Assessment: induction of labor, IUFD Admission Dx IUFD @ 18w2d Admit for IOL with cytotec d/w pt risks and benefits Admission Status: Observation Plan Plan: Induction SERG ALBERT DO Aug 04, 2023 20:41
[2023-08-04 21:04] VITALS: BP 96/60
[2023-08-04] MEDS ORDERED: HYDROmorphone INJECTION 2 MG/ML VIAL ONE (21:19)
[2023-08-04] MEDS ORDERED: D5 LR 1,000 ML IV SOLN 1,000 ML IV ONE (21:19)
[2023-08-04] MEDS: HYDROmorphone INJECTION 2 MG/ML VIAL IV PRN (21:28)
[2023-08-04] MEDS: D5 LR 1,000 ML IV SOLN 1,000 ML IV SCH (21:29)
[2023-08-04 22:05] VITALS: BP 102/57
[2023-08-04 23:28] VITALS: BP 92/57
[2023-08-05] VITALS (28 sets, daily range): BP systolic 82–114; BP diastolic 50–67
[2023-08-05] MEDS: HYDROmorphone INJECTION 2 MG/ML VIAL IV PRN ×2 (00:43→04:26)
[2023-08-05] MEDS ORDERED: HYDROmorphone INJECTION 2 MG/ML VIAL IV ONE (01:30)
--- NOTE | 2023-08-05 01:44 | OB Labor & Delivery Record ---
Vag Delivery Note Vag Delivery Note Date of Delivery: 08/05/23 Preoperative Diagnosis: Nica Renteria is a 28-year-old G5, P3 who presented at 18 weeks 2 days with an IUFD. Postoperative Diagnosis: Same Attending Surgeon/Physician: Serg Albert DO Resident Physician: [] Joggle Press Operator: [] Anesthesia: [] Delivery Type:Spontaneous vaginal delivery Findings: [] Stillborn male infant At 0124 on 08/05/2023 Lacerations: None Estimated Blood Loss: 300ml Complications: None Condition: Stable Description of Procedure: The patient received 2 doses of misoprostol orally starting at 2130. At 0117 I was called by the nurse to the bedside as the patient was having some increased bleeding and pressure. Upon arrival the patient had a moderate amount of bleeding and SVE was performed was noted that the gestational sac was in the vagina. The patient was instructed to push and delivered the fetus with the amniotic sac. The cord was clamped and then cut and the fetus was placed in the nurses hands. At this point the patient was allowed to richardson and we awaited delivery of the placenta. Vitals - Labs Vital Signs - I&O Vital Signs Date Time Temp Pulse Resp B/P (MAP) Pulse Ox O2 Delivery O2 Flow Rate FiO2 08/04/23 21:04 37.2 85 18 96/60 (72) 100 Room Air 08/04/23 19:43 37.5 95 18 100 Room Air 08/04/23 19:43 37.5 95 18 104/62 (76) 100 Room Air 08/04/23 19:39 88 18 105/80 98 Room Air 08/04/23 18:30 121 18 133/64 (87) 100 I & O 08/05/23 06:59 Intake Total 400 ml Balance 400 ml Labs Laboratory Tests 08/04/23 19:12: White Blood Count 8.7, Red Blood Count 3.88, Hemoglobin 11.7, Hematocrit 35, Mean Corpuscular Volume 91, Mean Corpuscular Hemoglobin 30, Mean Corpuscular Hemoglobin Concent 33, Red Cell Distribution Width 12.4, Platelet Count 232, Mean Platelet Volume 10.3, Immature Granulocyte % (Auto) 0, Neutrophils (%) (A uto) 70, Lymphocytes (%) (Auto) 23, Monocytes (%) (Auto) 6, Eosinophils (%) (Auto) 1, Basophils (%) (Auto) 0, Neutrophils # (Auto) 6.0, Lymphocytes # (Auto) 2.0, Monocytes # (Auto) 0.5, Eosinophils # (Auto) 0.1, Basophils # (Auto) 0.0, Immature Granulocyte # (Auto) 0.0 SERG ALBERT DO Aug 05, 2023 01:44
[2023-08-05] MEDS ORDERED: ONDANSETRON INJECTION 4 MG/2 ML (SDV) IVP PRN ×2 (03:00→09:15)
[2023-08-05] MEDS ORDERED: ONDANSETRON INJECTION 4 MG/2 ML (SDV) ONE ×2 (03:02→08:15)
[2023-08-05] MEDS: D5 LR 1,000 ML IV SOLN 1,000 ML IV SCH (04:51)
--- NOTE | 2023-08-05 08:07 | Progress Note ---
Standard Progress Note Progress Notes/Assess & Plan Date Seen by a Provider: Aug 05, 2023 Time Seen by a Provider: 07:58 Progress/Assessment & Plan Nursing staff stated that placenta delivered this am @ 0700 and when I came in to see the patient she stated that she was having a large amount of bleeding which she was her entire pad and underwear was saturated with blood. I inspected the placenta however it was not the placenta it was just a large clot with the umbilical cord. I then did an exam and felt that the placenta was still inside the uterus and patient was bleeding heavily. I then discussed with the patient that the placenta is retained and that we should proceed to suction D&C to remove the placenta to eliminate the risk of hemorrhaging. While I was in the room she had had at least 300 cc out and had had 200 cc loss at the time of delivery of the fetus. Patient was continuing to have a steady stream of blood. I discussed the risk benefits and alternatives with the patient including the risks of infection, bleeding, perforation of the uterus, scar tissue, retained products anesthesia risks nerve and limb damage VTE but the benefits of removing the placenta decreasing the risk of hemorrhaging and infection. The patient verbalized understanding, signed consents and is ready to proceed SERG ALBERT DO Aug 05, 2023 08:07
[2023-08-05] MEDS ORDERED: LIDOCAINE PF 2% 5 ML VIAL ONE (08:15)
[2023-08-05] MEDS ORDERED: SEVOFLURANE (ULTANE) 15 ML INHAL SOLN ONE ×2 (08:15→09:01)
[2023-08-05] MEDS ORDERED: MIDAZOLAM INJ 2 MG/2 ML VIAL ONE (08:15)
[2023-08-05] MEDS ORDERED: proPOfol INJECTION 200 MG/20 ML VIAL IV ONE (08:15)
[2023-08-05] MEDS ORDERED: fentaNYL INJECTION 100 MCG/2 ML VIAL ONE (08:15)
[2023-08-05] MEDS ORDERED: ceFAZolin INJECTION 2,000 MG ONE (08:26)
[2023-08-05] MEDS ORDERED: PHENYLEPHRINE 100 MCG/ML 10 ML (ANESTHESIA) SYR ONE (08:32)
[2023-08-05] MEDS ORDERED: METHYLERGONOVINE INJ 0.2 MG/ML AMP ONE (08:40)
[2023-08-05] MEDS ORDERED: SUCCINYLCHOLINE INJ 20 MG/1 ML 10 ML VIAL ONE (08:44)
[2023-08-05 09:00] LABS: BASOPHILS % (AUTO) 0 % (0-10); EOSINOPHILS % (AUTO) 0 % (0-10); HEMATOCRIT 22 % (35-52); HEMOGLOBIN 7.1 g/dL (11.5-16.0); LYMPHOCYTES # (AUTO) 0.7 10^3/uL (1.0-4.0); LYMPHOCYTES % (AUTO) 8 % (12-44); MEAN CORPUSCULAR HEMOGLOBIN 30 pg (25-34); MEAN CORPUSCULAR HGB CONC 32 g/dL (32-36); MEAN CORPUSCULAR VOLUME 94 fL (80-99); MEAN PLATELET VOLUME 11.1 fL (9.0-12.2); MONOCYTES # (AUTO) 0.4 10^3/uL (0.0-1.0); MONOCYTES % (AUTO) 4 % (0-12); NEUTROPHILS # (AUTO) 8.1 10^3/uL (1.8-7.8); NEUTROPHILS % (AUTO) 87 % (42-75); PLATELET COUNT 178 10^3/uL (130-400); WHITE BLOOD COUNT 9.3 10^3/uL (4.3-11.0)
[2023-08-05] MEDS ORDERED: FERROUS SULFATE 325 MG (IRON) TABLET PO SCH (09:00)
[2023-08-05] MEDS ORDERED: MEASLES, MUMPS, RUBELLA VACCINE (MMR) SQ ONE (09:00)
[2023-08-05] MEDS ORDERED: DOCUSATE SODIUM 100 MG CAPSULE PO SCH (09:00)
[2023-08-05] MEDS ORDERED: IBUPROFEN 600 MG TABLET PO SCH (09:00)
[2023-08-05] MEDS ORDERED: WITCH HAZEL(TUCKS) 40 EA JAR TOP PRN (09:00)
[2023-08-05] MEDS ORDERED: BENZOCAINE/MENTHOL (DERMOPLAST) 56 ML CAN TP PRN (09:00)
[2023-08-05] MEDS ORDERED: ACETAMINOPHEN 500 MG TABLET PO SCH (09:00)
[2023-08-05] MEDS ORDERED: NALOXONE 0.4 MG/ML 1 ML VIAL IV PRN (09:00)
[2023-08-05] MEDS ORDERED: OXYTOCIN DRIP PRE-MIX 500 ML IV SCH (09:00)
--- NOTE | 2023-08-05 09:02 | OB/GYN Operative Report ---
Operative Report Date of Procedure:Aug 05, 2023 Preoperative Diagnosis: Retained placenta Postoperative Diagnosis: Same Name of the Procedure: Suction D&C Surgeon: Serg Albert Director Adult(s): [none] Anesthesia: General ETA Indications for Procedure: This is a 28-year-old G5, P3 who presented at 18 weeks 3 days EGA by LMP with an IUFD that was about 14 weeks along. She delivered the fetus about 0130 this morning however did not deliver the placenta. Nursing staff thought she delivered the placenta at 730 but upon further inspection it was just a large clot and she was having active bleeding. Was decided to proceed to a suction D&E. We discussed the risk benefits and alternatives with the patient the patient had ample opportunity to ask her questions and have them answered to her satisfaction. She signed consents and is ready to proceed. Findings of the Procedure: Products of conception Complications: None Disposition: Products of conception counts correct x2 patient taken to recovery room in stable condition Description of the Procedure: Informed consent was obtained Patient was taken to the OR Felipe. 2 placed under general endotracheal anesthesia placed in the dorsolithotomy position prepped and draped usual sterile fashion. A pelvic exam under anesthesia revealed a enlarged soft boggy uterus with the placenta and the os. The placenta was removed but it was not complete. A weighted speculum was placed into the posterior vaginal vault and a ring forcep was used to grasp the antilipid the cervix. A 12 [place] suction catheter was then inserted into the uterine cavity and suction was applied. The remainder of the products of conception were removed after 3 passes of the suction catheter. A blunt curette was then used to feel the edges of the uterine cavity and the products of conception were noted to be removed. The patient was given 30 units of Pitocin in her IV fluids at that time and her uterus was still little boggy. She was given Methergine 0.2 mg IM and her uterus became firm with medication as well as bimanual massage. The estimated blood loss was 350 cc. Fluids were 1000 cc and urine output was 100 cc. All my counts were correct x2 and the patient was taken to recovery room in stable condition SERG ALBERT DO Aug 05, 2023 09:02
[2023-08-05] MEDS ORDERED: MEPERIDINE INJ 50 MG/ML VIAL IVP ONE (09:15)
[2023-08-05] MEDS ORDERED: fentaNYL INJECTION 100 MCG/2 ML VIAL IVP ONE (09:15)
[2023-08-05] MEDS ORDERED: morphine INJ 10 MG/ML 1ML (SYR OR VIAL) IVP ONE (09:15)
[2023-08-05] MEDS ORDERED: NS IV 500 ML 500 ML IV SCH (09:15)
[2023-08-05 09:25] LABS: BAND NEUTROPHILS 0 %; BASOPHILS % (MANUAL) 0 %; EOSINOPHILS % (MANUAL) 0 %; LYMPHOCYTES % (MANUAL) 10 %; MONOCYTES % (MANUAL) 3 %; NEUTROPHILS % (MANUAL) 87 %; RBC MORPH NORMAL
[2023-08-05 11:41] LABS: HEMOGLOBIN 10.1 g/dL (11.5-16.0)
[2023-08-05] MEDS ORDERED: CATHETER FLUSH 10 ML SYR IV SCH (14:00)
[2023-08-05] MEDS ORDERED: IBUP-844 PO (17:16)
--- NOTE | 2023-08-05 17:17 | Discharge Inst-Simple/Standard ---
Discharge Inst-Standard Reconcile Patient Problems Problems Reviewed?: Yes Discharge Medications New, Converted or Re-Newed RX: Transmitted to Pharmacy Patient Instructions/Follow Up Plan of Care/Instructions/FU: Follow-up in 2 weeks Nothing in the vagina (no sex, tampons or douches) Call if increased pain, increased bleeding or temperature over 100.1 F Activity as Tolerated: Yes Discharge Diet: Regular Diet SERG ALBERT DO Aug 05, 2023 17:16
--- NOTE | 2023-08-05 17:27 | Progress Note ---
Standard Progress Note Progress Notes/Assess & Plan Date Seen by a Provider: Aug 05, 2023 Time Seen by a Provider: 17:15 Progress/Assessment & Plan I saw patient this evening Pt had postop HGB of 7.1 (down from 11.7) and received 1 unit PRBC and f/u HGB 10.1. She feels much better and has eaten and able to use restroom. She would like to go home VSS AF ABD soft NT ND lochia minimal EXT intact x4 A/P s/p for IUFD s/p suction DD&C for retained placenta DC to home f/u in 2wk. DC instructions. SERG ALBERT DO Aug 05, 2023 17:27
[2023-08-06] MEDS ORDERED: PRENATAL VITAMIN TABLET PO SCH (07:00)
== END 2023-08-05 18:25 | disposition home or self-care (01) ==
LOC: EDUNIT# 18:22 → ER 18:27 → UNDOADMOB 19:44 → LDRP 19:44 → UNDODISOB 08-05 18:25
PROVIDERS: ADMIT Obstetrics & Gynecology; ATTEND Obstetrics & Gynecology
DX: O03.9 Complete or unspecified spontaneous abortion without complication (principal)
CPT/HCPCS: 36415; 85007; 85014; 85018; 85025; 85027; 86850; 86900; 86901; 86920; G0378